=== PATIENT | male | born 1960 | race Caucasian/White ===

== ENCOUNTER → 2017-12-21 | Outpatient (CLI) | payer BC, MEDICARE | END | disposition home or self-care (01) | LOC: LABPAT 14:11 | PROVIDERS: ATTEND Orthopaedic Surgery | DX: Z01.812 Encounter for preprocedural laboratory examination (principal) | CPT/HCPCS: 87070 ==

== ENCOUNTER 2018-01-15 09:27 | Inpatient (IN) | payer BC, MEDICARE ==
[2018-01-03 17:59] VITALS: BMI 37.2
--- NOTE | 2018-01-14 14:34 | HP ---
HISTORY AND PHYSICAL DATE OF SURGERY: 01/15/2018 Jez Delgadillo is a 57-year-old patient seen with symptomatic left knee osteoarthritis. Treatment options discussed. He elected to proceed left total knee arthroplasty. Consent was obtained. Medical clearance was provided by Dr. Gauthier. PAST MEDICAL HISTORY: Hyperlipidemia, hypertension, gon-dvuwufc-urndijavv diabetes, hypothyroidism, asthma. PAST SURGICAL HISTORY: Right knee arthroscopy, herniorrhaphy, lumbar spine decompression. MEDICATIONS: Lisinopril, metformin, nebulizer inhaler, Synthroid. ALLERGIES: None reported. SOCIAL HISTORY: Patient smokes 2 packs of cigarettes daily. PHYSICAL EXAMINATION: Evaluation of the left knee is range of motion is negative to 110 degrees. Tenderness along the medial joint line. Crepitus medial patellofemoral compartment on range of motion. Pain with patellofemoral compression. Ligaments stable. Hip rotation without pain. His distal neurovascular exam is intact. Left knee radiographs revealed severe medial moderate patellofemoral compartment osteoarthritis. IMPRESSION: 1. Left knee osteoarthritis. 2. Hypertension. 3. Hyperlipidemia. 4. Jck-iovgscn-fcpxpysyz diabetes. 5. Hypothyroidism. PLAN: Left total knee arthroplasty. MMODL / IJN: [id number] /
[~2018-01-15 09:27] MED LIST: ACETAMINOPHEN TAB 500 MG TAB PO ONE; DEXAMETHASONE SOD PHOSPHATE 10 MG/ML 1 ML VIAL IV ONE; LACTATED RINGERS 1,000 ML IV SCH; LIDOCAINE 1% 20 ML VIAL (10MG/ML) FOR IV START INTRADERMA PRN; MELOXICAM 7.5 MG TAB PO ONE; MIDAZOLAM 2 MG/2 ML VIAL IV PRN; ONDANSETRON 4 MG/2 ML VIAL IVP ONE; SCOPOLAMINE 1.5MG/72HR PATCH TRANSDERM ONE; TRANEXAMIC ACID 1,000 MG in SODIUM CHLORIDE 0.9% 50 ML IVPB ONE; VANCOMYCIN 1,500 MG in SODIUM CHLORIDE 0.9% 250 ML IVPB ONE
[2018-01-15 10:23] LABS: Glucose,Whole Blood 113 mg/dL (75-99)
[2018-01-15] MEDS ORDERED: LIDOCAINE 1% 20 ML VIAL (10MG/ML) FOR IV START INTRADERMA ONE (10:30)
[2018-01-15 10:54] LABS: INR 1.3 (<1.2)
[2018-01-15] MEDS ORDERED: IPRATROPIUM-ALBUTEROL 3 ML NEB INHALATION STA (11:06)
[2018-01-15] MEDS ORDERED: ROPIVACAINE 246.25 MG, EPINEPHrine 0.5 MG, KETOROLAC 30 MG, cloNIDine HCL/PF 80 MCG, WA... MISCELLANE ONE ×5 (12:43)
[2018-01-15] MEDS ORDERED: TRANEXAMIC ACID 1,000 MG/10 ML VIAL ONE (12:52)
[2018-01-15] MEDS ORDERED: HYDROmorphone (PF) 1 MG/ML ONE (12:52)
[2018-01-15] MEDS ORDERED: fentaNYL (PF) 50 MCG/ML 2 ML AMP ONE (12:52)
[2018-01-15] MEDS ORDERED: SUCCINYLCHOLINE CHLORIDE 100 MG/5 ML SYR IV ONE (12:52)
[2018-01-15] MEDS ORDERED: SODIUM CHLORIDE 0.9% 100 ML BAG ONE (12:52)
[2018-01-15] MEDS ORDERED: ROCURONIUM BROMIDE 10 MG/ML 10 ML VIAL IV ONE (12:52)
[2018-01-15] MEDS ORDERED: PROPOFOL 10 MG/ML 20 ML VIAL IV ONE (12:52)
[2018-01-15] MEDS ORDERED: ceFAZolin 3,000 MG in SODIUM CHLORIDE 0.9% IRRIGATIO 3,000 ML IRRIGATION ONE (12:52)
[2018-01-15] MEDS ORDERED: MIDAZOLAM 2 MG/2 ML VIAL ONE (12:52)
[2018-01-15] MEDS ORDERED: KETOROLAC 30 MG/ML 1 ML VIAL ONE (12:52)
[2018-01-15] MEDS ORDERED: LACTATED RINGERS 1,000 ML IV ONE (13:57)
--- NOTE | 2018-01-15 15:04 | P.OP ---
Date of Procedure: 01/15/18 Preoperative Diagnosis: Left knee osteoarthritis Postoperative Diagnosis: Left knee osteoarthritis Procedure(s) Performed: Left total knee arthroplasty Implants: 1. Microport evolution size 6 left CD/CR cemented femur 2. Microport evolution size 6 left MP cemented tibial baseplate 3. Microport evolution size 6 left MP 12 mm polyethylene tibial insert 4. Microport advance 35 mm all polyethylene cemented patella Anesthesia: GETA, regional (Adductor canal catheter), local Surgeon: Milind Patton Engineering Mathematician #1: Alcides Arguelles Estimated Blood Loss (ml): 50 Pathology: other (Bone) Condition: stable Disposition: PACU Indications for Procedure: 57-year-old patient seen with symptomatic left knee osteoarthritis. After having treatment options discussed, he elected to proceed with total knee arthroplasty. Operative Findings: See description of procedure Description of Procedure: Patient was taken to the operative suite after having an adductor canal catheter placed by the department of anesthesia for postoperative pain control. Patient underwent a general anesthetic by the department of anesthesia. Patient was given preoperative IV intake antibiotics and TXA. A well-padded tourniquet was placed about the left lower extremity. The lower extremity was then prepped and draped in the normal sterile orthopedic fashion. The extremity was elevated, a tourniquet was insufflated to 300. A standard anterior incision was made sharply through skin. Dissection was taken down through the subcutaneous soft tissues down to the extensor mechanism. A medial arthrotomy was performed, patella was everted and knee was flexed. There was advanced osteoarthritis noted. I introduced my distal intramedullary femoral drill. I then introduced the distal femoral cutting jig. Torrey GARNER secured the cutting jig with 2 pins. I held retractors in position while Torrey GARNER performed the distal femoral resection through the guide area we now removed her distal femoral cutting guide. We now placed our 4-in-1 femoral cutting block and positioned and it was secured with 2 pins by Torrey GARNER while I held the block in position. The distal femoral finishing was now completed. A proximal tibial cutting guide was positioned. I held the guide in the appropriate position with both hands well Torrey GARNER inserted stabilizing pins into the guide. Proximal tibial cut was made. We now placed a trial femoral component into position, along with an appropriate size tibial tray and insert. We now took the knee through range of motion and had full extension good flexion and good overall soft tissue balance noted. The patella was everted and stabilized with 2 towel clips held by Torrey GARNER while I performed a flush with patellar quad tendon utilizing a fresh sawblade. We templated the patella, appropriate drill holes were made. An appropriate trial patella was positioned, knee was taken through full range of motion with the patella tracking very nicely. The trial patella was removed. Drill holes were made through the femoral component. All trial components were removed after marking off the appropriate rotation of the tibia. Retractors were now positioned along the proximal tibia. An appropriate keel punch was made with the appropriate size tibial guide by myself on Torrey GARNER assisted by holding retractors. At this point appropriate size implants were chosen and opened. The joint was irrigated copiously with pulse lavage mechanical irrigation. The posterior capsule was infiltrated with local analgesic. The wound was irrigated with pulse lavage mechanical irrigation. We mixed antibiotic methylmethacrylate. We placed the knee into flexion. We placed multiple retractors assisted by Torrey GARNER to expose the proximal tibia. Once the methyl methacrylate was ready, the tibial component was cemented into place removing any excess methylmethacrylate form by both myself and Torrey GARNER. The femoral component was cemented into place removing the removing any excess methylmethacrylate performed by both myself and Torrey GARNER. We then inserted the appropriate size polyethylene tibial insert. We made sure that it was locked into position. We took the knee into full extension, and then back in a flexion making sure we had removed any excess methylmethacrylate. The patellar component was then cemented down and secured with clamp. Excess methylmethacrylate removed. We kept the knee in full extension, patellar clamp in position until methylmethacrylate had hardened. Once it had hardened the patellar clamp was removed. The knee was taken through full range of motion. The patella tracked nicely. There was good soft tissue balancing. The tourniquet was now released. Additional hemostasis was achieved via electrocautery. A second gram of TXA was given. The wound again was irrigated with pulse lavage mechanical irrigation. The superficial soft tissues were infiltrated local analgesic. The extensor mechanism was repaired with Vicryl. We checked the repair with range of motion and it was stable. The subcutaneous soft tissues were repaired with Vicryl in layers. The skin was approximated with pernio/Dermabond. Sterile dressings were applied followed by loose web roll and Gregorio bandage. The patient was transferred to a bed, and taken to recovery in stable and satisfactory condition. Torrey GARNER assisted with this complex procedure.
[2018-01-15] MEDS ORDERED: HYDROmorphone 1 MG/ML 1 ML SYRINGE IVP PRN ×2 (15:05)
[2018-01-15] MEDS ORDERED: NALOXONE 0.4 MG/ML 1 ML VIAL IV PRN (15:05)
[2018-01-15] MEDS ORDERED: HYDROcodone/APAP 5-325MG 1 EACH TAB PO PRN (15:05)
[2018-01-15] MEDS ORDERED: ONDANSETRON 4 MG/2 ML VIAL IVP PRN (15:05)
[2018-01-15] MEDS ORDERED: ROPIVACAINE 1,100 MG, SODIUM CHLORIDE 0.9% 330 ML MISCELLANE PRN ×2 (15:22)
--- NOTE | 2018-01-15 15:25 | P.ONQ ---
Anesthesiology Proc Note - PNB - Peripheral Nerve Block Performed Left Adductor Canal Procedure Start Time: 11:27 Procedure Stop Time: 11:46 Indication: Acute Post-Operative Pain, Requested by physician (Dr Patton) Sedation Type: Sedate with meaningful contact maintained Preparation: Sterile Dressing Position: Supine Catheter: Indwelling Needle Types: Other (see comment) (Jalen) Needle Size: 50mm (2") Needle Gauge: 21 Technique: Ultrasound Injectate: 0.5% Ropivacaine (see comment for volume) (22cc) Blood Aspirated: No Pain Paresthesia on Injection Noted: No Resistance on Injection: Normal Events: Uneventful and Well Tolerated
[2018-01-15] MEDS: HYDROmorphone 0.5 MG/0.5 ML SYRINGE IVP PRN ×2 (15:33→15:53)
[2018-01-15 15:43] LABS: Glucose,Whole Blood 138 mg/dL (75-99)
[2018-01-15] MEDS: LACTATED RINGERS 1,000 ML IV SCH (16:14)
[2018-01-15 17:14] LABS: Glucose,Whole Blood 143 mg/dL (75-99)
[2018-01-15] MEDS: IPRATROPIUM-ALBUTEROL 3 ML NEB INHALATION SCH (20:19)
[2018-01-15 20:20] LABS: Glucose,Whole Blood 265 mg/dL (75-99)
[2018-01-15] MEDS: traMADol 50 MG TAB PO SCH ×2 (22:06→22:16)
[2018-01-15] MEDS: INSULIN ASPART 100 UNIT/ML 1 ML 10 ML VIAL SQ SCH (22:15)
[2018-01-15] MEDS: SENNOSIDES-DOCUSATE SODIUM 1 EACH TAB PO SCH (22:16)
[2018-01-15] MEDS: PRAVASTATIN SODIUM 20 MG TAB PO SCH (22:16)
[2018-01-15] MEDS: LISINOPRIL 5 MG TAB PO SCH (22:17)
[2018-01-16] MEDS: IPRATROPIUM-ALBUTEROL 3 ML NEB INHALATION SCH ×5 (01:43→20:03)
[2018-01-16] MEDS: LACTATED RINGERS 1,000 ML IV SCH ×3 (02:39→21:53)
[2018-01-16] MEDS: HYDROcodone/APAP 5-325MG 1 EACH TAB PO PRN ×2 (03:25→10:44)
[2018-01-16] MEDS: LEVOTHYROXINE 88 MCG TAB PO SCH (05:40)
[2018-01-16 07:18] LABS: Glucose,Whole Blood 90 mg/dL (75-99)
[2018-01-16] MEDS: INSULIN ASPART 100 UNIT/ML 1 ML 10 ML VIAL SQ SCH ×4 (08:20→21:51)
[2018-01-16] MEDS: LISINOPRIL 5 MG TAB PO SCH ×2 (08:30→21:50)
[2018-01-16] MEDS: MULTIVITAMINS, THERA 1 EACH TAB PO SCH (08:30)
[2018-01-16] MEDS: MELOXICAM 7.5 MG TAB PO SCH (08:30)
[2018-01-16] MEDS: ASPIRIN 81 MG PO SCH (08:31)
[2018-01-16] MEDS: metFORMIN 500 MG TAB PO SCH (08:31)
[2018-01-16] MEDS: traMADol 50 MG TAB PO SCH ×4 (08:31→21:52)
[2018-01-16] MEDS: ENOXAPARIN 30 MG/0.3 ML SYRINGE SQ SCH ×2 (08:31→21:50)
[2018-01-16 08:43] LABS: Basophils % (A) 0 %; Eosinophils # (A) 0.1 k/uL (0-0.7); Eosinophils % (A) 1 %; HCT 44.7 % (39.0-53.0); HGB 14.2 gm/dL (13.0-17.5); Lymphocytes # (A) 1.8 k/uL (1.0-4.8); Lymphocytes % (A) 16 %; MCH 31.8 pg (25.0-35.0); MCHC 31.7 g/dL (31.0-37.0); MCV 100.1 fL (80.0-100.0); Mean Platelet Volume 6.7; Monocytes # (A) 0.8 k/uL (0-1.0); Monocytes % (A) 7 %; Neutrophils # (A) 8.6 k/uL (1.3-7.7); Neutrophils % (A) 75 %; Platelet Count 205 k/uL (150-450); RBC 4.47 m/uL (4.30-5.90); RDW 13.6 % (11.5-15.5); WBC 11.5 k/uL (3.8-10.6)
--- NOTE | 2018-01-16 08:56 | P.PN ---
Progress Note - Text The patient is status post left adductor canal catheter placement. The catheter was placed for postoperative pain control, status post total left arthroplasty. Ropivacaine 0.2% is infusing at 8 mLs per hour. The patient has no complaints of left lower extremity numbness or weakness. Patient's VAS score is 3 -10. Assessment: Patient's adductor canal catheter is in place and working appropriately. Plan: continue infusion and adjust it as needed.
--- NOTE | 2018-01-16 10:24 | XR ---
EXAMINATION TYPE: XR knee limited LT DATE OF EXAM: 01/15/2018 COMPARISON: NONE TECHNIQUE: Two views submitted HISTORY: Post op FINDINGS: There is a prosthetic knee in near anatomic alignment. There is soft tissue edema and emphysema. IMPRESSION: 1. Postoperative change. Appears in near-anatomic alignment
[2018-01-16] MEDS ORDERED: HYDROcodone/APAP 7.5-325MG 1 EACH TAB PO PRN (11:28)
--- NOTE | 2018-01-16 11:30 | P.PN ---
Subjective Progress Note Date: 01/16/18 Principal diagnosis: Status post left total knee arthroplasty Patient seen today resting in his hospital bed, he appears comfortable. Slight increase in pain compared to yesterday. He denies any headaches, lightheadedness, chest pain or shortness of breath. Objective - Vital Signs Vital signs: Vital Signs Temp 98.0 F 01/16/18 07:05 Pulse 80 01/16/18 08:33 Resp 18 01/16/18 07:05 BP 113/70 01/16/18 07:05 Pulse Ox 90 L 01/16/18 07:05 Intake & Output 01/15/18 01/16/18 01/16/18 18:59 06:59 18:59 Intake Total 3541 1540 Output Total 50 Balance 3491 1540 Intake: IV 2251 Intake, IV Titration 300 1000 Amount Lactated Ringers 1,000 ml 300 1000 @ 100 mls/hr IV .Q10H [facility] Rx#:[id number] Oral 990 540 Output: Estimated Blood Loss 50 Other: Voiding Method Urinal Urinal # Voids 1 - Exam Left lower extremity: Incision is clean, dry, and intact. The prineo tape is in good condition. There is minimal soft tissue swelling and ecchymosis surrounding the medial and lateral aspects of the incision. Calf is soft, no tenderness with palpation. Plantar flexion, dorsiflexion, EHL, FHL are intact. Sensory exam to light touch throughout the extremity is intact, dorsal pedis pulses 2+. - Labs CBC & Chem 7: 01/16/18 08:07 Labs: Abnormal Lab Results - Last 24 Hours (Table) 01/15/18 01/15/18 01/15/18 Range/Units 15:40 17:13 20:16 WBC (3.8-10.6) k/uL MCV (80.0-100.0) fL Neutrophils # (1.3-7.7) k/uL POC Glucose (mg/dL) 138 H 143 H 265 H (75-99) mg/dL 01/16/18 Range/Units 08:07 WBC 11.5 H (3.8-10.6) k/uL MCV 100.1 H (80.0-100.0) fL Neutrophils # 8.6 H (1.3-7.7) k/uL POC Glucose (mg/dL) (75-99) mg/dL Assessment and Plan Plan: Assessment: Postoperative day #1 status post left total knee arthroplasty Plan: Pain control, will increase oral Leburn dose GI and DVT prophylaxis, continue current regimen Encourage incentive spirometer Daily dressing changes/ice and elevate Continue work with physical therapy and use of the CPM machine Medical recommendations Discharge planning: Patient will likely be discharged home tomorrow Time with Patient: Less than 30
[2018-01-16 12:45] LABS: Glucose,Whole Blood 110 mg/dL (75-99)
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
[2018-01-16] MEDS: HYDROcodone/APAP 7.5-325MG 1 EACH TAB PO PRN ×2 (16:28→22:26)
[2018-01-16 17:13] LABS: Glucose,Whole Blood 132 mg/dL (75-99)
[2018-01-16 17:56] LABS: Hemoglobin A1C 6.8 % (4.0-6.0)
[2018-01-16 20:08] LABS: Glucose,Whole Blood 152 mg/dL (75-99)
[2018-01-16] MEDS: SENNOSIDES-DOCUSATE SODIUM 1 EACH TAB PO SCH (21:52)
[2018-01-16] MEDS: PRAVASTATIN SODIUM 20 MG TAB PO SCH (21:53)
[2018-01-16] MEDS: hydrOXYzine PAMOATE 25 MG CAP PO PRN (22:27)
[2018-01-16] MEDS: HYDROmorphone 1 MG/ML 1 ML SYRINGE IVP PRN (23:48)
[2018-01-17] MEDS: IPRATROPIUM-ALBUTEROL 3 ML NEB INHALATION SCH ×4 (00:13→20:59)
[2018-01-17] MEDS: HYDROcodone/APAP 7.5-325MG 1 EACH TAB PO PRN ×3 (05:43→19:05)
[2018-01-17] MEDS: hydrOXYzine PAMOATE 25 MG CAP PO PRN ×3 (05:45→19:04)
[2018-01-17] MEDS: LEVOTHYROXINE 88 MCG TAB PO SCH (05:46)
--- NOTE | 2018-01-17 05:46 | P.PN ---
Progress Note - Text Progress Note Date: 01/17/18 The patient is status post left total knee replacement. He has On-Q catheter for pain control however his pain has been moderate to severe overnight. The patient is to continue receiving IV Dilaudid for his breakthrough pain. The On- Q catheter will be taken out as per protocol.
[2018-01-17] MEDS: HYDROmorphone 1 MG/ML 1 ML SYRINGE IVP PRN ×4 (06:04→20:15)
[2018-01-17 07:32] LABS: Glucose,Whole Blood 136 mg/dL (75-99)
[2018-01-17] MEDS: INSULIN ASPART 100 UNIT/ML 1 ML 10 ML VIAL SQ SCH ×4 (08:20→21:10)
[2018-01-17] MEDS: metFORMIN 500 MG TAB PO SCH (09:01)
[2018-01-17] MEDS: ENOXAPARIN 30 MG/0.3 ML SYRINGE SQ SCH ×2 (09:01→20:15)
[2018-01-17] MEDS: ASPIRIN 81 MG PO SCH (09:01)
[2018-01-17] MEDS: MELOXICAM 7.5 MG TAB PO SCH (09:01)
[2018-01-17] MEDS: MULTIVITAMINS, THERA 1 EACH TAB PO SCH (09:01)
[2018-01-17] MEDS: traMADol 50 MG TAB PO SCH ×3 (09:02→19:05)
[2018-01-17] MEDS: LISINOPRIL 5 MG TAB PO SCH ×2 (09:08→20:16)
--- NOTE | 2018-01-17 10:39 | P.PN ---
Subjective Progress Note Date: 01/17/18 Principal diagnosis: Status post left total knee arthroplasty Patient seen today resting in his hospital bed. Patient still complaining of pain, he states the pain medication does make him sleepy. He continues to steadily pain medication. He denies any headaches, lightheadedness, chest pain or shortness of breath. Objective - Vital Signs Vital signs: Vital Signs Temp 98 F 01/17/18 07:00 Pulse 113 H 01/17/18 07:00 Resp 17 01/17/18 07:00 BP 159/100 01/17/18 07:00 Pulse Ox 90 L 01/17/18 07:00 Intake & Output 01/16/18 01/17/18 01/17/18 18:59 06:59 18:59 Intake Total 1400 740 Output Total 825 Balance 1400 -85 Weight 106.141 kg Intake: IV 900 Lactated Ringers 1,000 ml 900 @ 100 mls/hr IV .Q10H [facility] Rx#:[id number] Intake, IV Titration 200 Amount Lactated Ringers 1,000 ml 200 @ 100 mls/hr IV .Q10H [facility] Rx#:[id number] Oral 500 540 Output: Urine 825 Other: Voiding Method Urinal Urinal # Voids 3 1 - Exam Left lower extremity: Incision is clean, dry, and intact. The prineo tape is in good condition. There is minimal soft tissue swelling and ecchymosis surrounding the medial and lateral aspects of the incision. Calf is soft, no tenderness with palpation. Plantar flexion, dorsiflexion, EHL, FHL are intact. Sensory exam to light touch throughout the extremity is intact, dorsal pedis pulses 2+. - Labs CBC & Chem 7: 01/16/18 08:07 Labs: Abnormal Lab Results - Last 24 Hours (Table) 01/16/18 01/16/18 01/16/18 Range/Units 08:07 12:43 17:12 POC Glucose (mg/dL) 110 H 132 H (75-99) mg/dL Hemoglobin A1c 6.8 H (4.0-6.0) % 01/16/18 01/17/18 Range/Units 20:06 07:30 POC Glucose (mg/dL) 152 H 136 H (75-99) mg/dL Hemoglobin A1c (4.0-6.0) % Assessment and Plan Plan: Assessment: Postoperative day #2 status post left total knee arthroplasty Plan: Pain control, continue current regimen. Avoid IV medication GI and DVT prophylaxis, continue current regimen Encourage incentive spirometer Daily dressing changes/ice and elevate Continue work with physical therapy and use of the CPM machine Medical recommendations Discharge planning: Hopeful discharged home tomorrow Time with Patient: Less than 30
[2018-01-17] MEDS: LACTATED RINGERS 1,000 ML IV SCH ×2 (10:52→17:15)
[2018-01-17 12:06] LABS: Glucose,Whole Blood 127 mg/dL (75-99)
--- NOTE | 2018-01-17 13:24 | P.PN ---
Subjective Progress Note Date: 01/17/18 Principal diagnosis: Left total knee arthroplasty, postop day 2, inactive COPD Jez is a 57-year-old male patient and I'm seeing him for a postoperative pulmonary care. The patient is known to have COPD and obstructive sleep apnea. The patient has also severe degenerative arthritis involving multiple joints and he came into the hospital for a left total knee arthroplasty. Surgery was done with an estimated blood loss of 50 mL and the patient has Q pump in place and I'm involved in the postoperative care. He is doing extremely well. Awake alert. No respiratory difficulties. No cough sputum production. No chest pain. Pain is under good control for now. Hemodynamically stable. He is also on tramadol and [place] for pain control. Outpatient medication of been ordered resume. He is on Lovenox for DVT prophylaxis. On 01/17/2018 patient seen in follow-up on surgical floor. No respiratory complaints, shortness of breath, his sinusitis effort is 1500 on today's exam. Lung sounds are clear. Patient is having left knee postsurgical discomfort, swelling, but no calf tenderness, distal pulses are intact. COPD seems to be stable, continue with the nebulized treatments. Objective - Vital Signs Vital signs: Vital Signs Temp 98 F 01/17/18 07:00 Pulse 94 01/17/18 10:47 Resp 17 01/17/18 07:00 BP 159/100 01/17/18 07:00 Pulse Ox 90 L 01/17/18 07:00 Intake & Output 01/16/18 01/17/18 01/17/18 18:59 06:59 18:59 Intake Total 1400 740 Output Total 825 300 Balance 1400 -85 -300 Weight 106.141 kg Intake: IV 900 Lactated Ringers 1,000 ml 900 @ 100 mls/hr IV .Q10H [facility] Rx#:[id number] Intake, IV Titration 200 Amount Lactated Ringers 1,000 ml 200 @ 100 mls/hr IV .Q10H [facility] Rx#:[id number] Oral 500 540 Output: Urine 825 300 Other: Voiding Method Urinal Urinal # Voids 3 1 - Exam General Appearance no diaphoresis, no respiratory distress, speech not interrupted by breaths, no dyspnea, no pallor, not cachectic, well nourished, appears well, obesity HEENT no pursed lip breathing, no jugular venous distention, no mucous membrane cyanosis, no perioral cyanosis, mallampati classification: class 1, Mallampati Classification: Class 4 Chest no barrel chest, no retractions, no sternocleidomastoid muscle contractions, no supraclavicular retractions, no intercostal retractions, no prolonged expiratory wheezing, no decreased air movement, no rhonchi, no hyperinflation, decreased air movement Heart no right ventricular heave, no distant heart sounds, no s3 gallop GI bowel sounds: hyperactive (borborygmi), bowel sounds: diminished or absent Extremities no cyanosis, no clubbing, no edema, the patient has a Q pump in the left lower extremity and the knee joint is slightly swollen yet he has adequate pulses symmetric in lower extremities bilaterally. Neurologic no decreased mental status, no somnolence, no confusion Skin General Appearance normal, (normal) normal except as not - Labs CBC & Chem 7: 01/16/18 08:07 Labs: Abnormal Lab Results - Last 24 Hours (Table) 01/16/18 01/16/18 01/16/18 Range/Units 08:07 17:12 20:06 POC Glucose (mg/dL) 132 H 152 H (75-99) mg/dL Hemoglobin A1c 6.8 H (4.0-6.0) % 01/17/18 01/17/18 Range/Units 07:30 12:03 POC Glucose (mg/dL) 136 H 127 H (75-99) mg/dL Hemoglobin A1c (4.0-6.0) % Assessment and Plan Plan: 1 left total knee arthroplasty. The patient is postop day #1. Recovering mastic from the surgery. Pain is under good control and the patient is postop day #1 and hemodynamically stable. 2 COPD currently inactive in stable 3 obstructive sleep apnea maintained on a BiPAP at a pressure of 13/9 cm of water 4 coronary artery disease currently inactive in stable 5 CHF currently inactive in stable 6 hypertension 7 diabetes mellitus 8 hyperlipidemia 9 severe osteoarthritis 10 hypothyroidism 11 obesity with a BMI of 37.2 12 smoker Plan Continue current medical treatment, continue incentive spirometry use, nebulized bronchodilators, pain control, his COPD is stable, didn't DVT and GI prophylaxis, I performed a history & physical examination of the patient and discussed their management with my nurse practitioner, Vickie Woods. I reviewed the nurse practitioner's note and agree with the documented findings and plan of care. Lung sounds are clear. The findings and the impression was discussed with the patient. I attest to the documentation by the nurse practitioner. Time with Patient: Less than 30
[2018-01-17] MEDS ORDERED: HYDROmorphone 2 MG TAB PO PRN ×2 (14:44)
[2018-01-17] MEDS ORDERED: HYDROmorphone 4 MG TABLET PO PRN (14:45)
[2018-01-17 17:02] LABS: Glucose,Whole Blood 106 mg/dL (75-99)
--- NOTE | 2018-01-17 18:07 | US ---
EXAMINATION TYPE: US venous doppler duplex LE LT DATE OF EXAM: 01/17/2018 4:03 PM COMPARISON: NONE CLINICAL HISTORY: Swelling. Left knee replacement 01/15/18, pain and edema left leg SIDE PERFORMED: left TECHNIQUE: The lower extremity deep venous system is examined utilizing real time linear array sonog suzy with graded compression, doppler sonography and color-flow sonography. VESSELS IMAGED: External Iliac Vein (EIV) Common Femoral Vein Deep Femoral Vein Greater Saphenous Vein * Femoral Vein Popliteal Vein Small Saphenous Vein * Proximal Calf Veins (* superficial vessels) Left Leg: Technical limitations due to patient's body habitus and large amount of edema. No eviden ce of DVT as visualized. Unable to visualize lower femoral vein. Large complex anechoic area left pop liteal fossa = 6.5 x 2.9 x 3.3cm, possible Anderson's cyst vs. other IMPRESSION: No evidence of deep venous thrombosis. Complex popliteal cyst is noted.
[2018-01-17] MEDS: PRAVASTATIN SODIUM 20 MG TAB PO SCH (20:16)
[2018-01-17] MEDS: SENNOSIDES-DOCUSATE SODIUM 1 EACH TAB PO SCH (20:17)
[2018-01-17 20:58] LABS: Glucose,Whole Blood 138 mg/dL (75-99)
[2018-01-18] MEDS: traMADol 50 MG TAB PO SCH ×3 (00:58→12:44)
[2018-01-18 01:34] VITALS: RESP 18
[2018-01-18] MEDS: IPRATROPIUM-ALBUTEROL 3 ML NEB INHALATION SCH ×3 (02:41→13:13)
[2018-01-18] MEDS: LACTATED RINGERS 1,000 ML IV SCH (03:09)
[2018-01-18] MEDS: HYDROmorphone 1 MG/ML 1 ML SYRINGE IVP PRN ×3 (05:17→12:42)
[2018-01-18] MEDS: LEVOTHYROXINE 88 MCG TAB PO SCH (05:18)
[2018-01-18 07:12] LABS: Glucose,Whole Blood 126 mg/dL (75-99)
[2018-01-18] MEDS: INSULIN ASPART 100 UNIT/ML 1 ML 10 ML VIAL SQ SCH (07:18)
[2018-01-18] MEDS: HYDROcodone/APAP 7.5-325MG 1 EACH TAB PO PRN ×2 (07:28→14:37)
[2018-01-18] MEDS: hydrOXYzine PAMOATE 25 MG CAP PO PRN ×2 (07:29→14:38)
[2018-01-18 07:33] VITALS: BP 148/73; TEMP 98.2
[2018-01-18 07:39] LABS: Basophils % (A) 0 %; Eosinophils # (A) 0.1 k/uL (0-0.7); Eosinophils % (A) 1 %; HCT 38.4 % (39.0-53.0); HGB 12.6 gm/dL (13.0-17.5); Lymphocytes # (A) 1.1 k/uL (1.0-4.8); Lymphocytes % (A) 10 %; MCH 31.7 pg (25.0-35.0); MCHC 32.8 g/dL (31.0-37.0); MCV 96.7 fL (80.0-100.0); Monocytes # (A) 0.8 k/uL (0-1.0); Monocytes % (A) 7 %; Neutrophils # (A) 8.9 k/uL (1.3-7.7); Neutrophils % (A) 81 %; Platelet Count 171 k/uL (150-450); RBC 3.97 m/uL (4.30-5.90); RDW 13.1 % (11.5-15.5)
[2018-01-18] MEDS: ASPIRIN 81 MG PO SCH (08:57)
[2018-01-18] MEDS: LISINOPRIL 5 MG TAB PO SCH (08:57)
[2018-01-18] MEDS: metFORMIN 500 MG TAB PO SCH (08:57)
[2018-01-18] MEDS: ENOXAPARIN 30 MG/0.3 ML SYRINGE SQ SCH (08:58)
[2018-01-18] MEDS: MULTIVITAMINS, THERA 1 EACH TAB PO SCH (08:58)
[2018-01-18] MEDS: MELOXICAM 7.5 MG TAB PO SCH (08:59)
--- NOTE | 2018-01-18 10:06 | P.PN ---
Subjective Progress Note Date: 01/18/18 Principal diagnosis: Status post left total knee arthroplasty Patient seen today resting in his hospital bed. Doppler ultrasound was ordered of the left lower extremity due to swelling yesterday. This did not report any acute DVTs present. He denies any headaches, lightheadedness, chest pain or shortness of breath. Objective - Vital Signs Vital signs: Vital Signs Temp 98.2 F 01/18/18 07:00 Pulse 100 01/18/18 08:18 Resp 18 01/18/18 07:00 BP 148/73 01/18/18 07:00 Pulse Ox 91 L 01/18/18 08:05 Intake & Output 01/17/18 01/18/18 01/18/18 18:59 06:59 18:59 Output Total 300 450 Balance -300 -450 Output: Urine 300 450 Other: # Voids 1 - Exam Left lower extremity: Incision is clean, dry, and intact. The prineo tape is in good condition. There is minimal soft tissue swelling and ecchymosis surrounding the medial and lateral aspects of the incision. Calf is soft, no tenderness with palpation. Plantar flexion, dorsiflexion, EHL, FHL are intact. Sensory exam to light touch throughout the extremity is intact, dorsal pedis pulses 2+. - Labs CBC & Chem 7: 01/18/18 07:10 Labs: Abnormal Lab Results - Last 24 Hours (Table) 01/17/18 01/17/18 01/17/18 Range/Units 12:03 17:00 20:56 WBC (3.8-10.6) k/uL RBC (4.30-5.90) m/uL Hgb (13.0-17.5) gm/dL Hct (39.0-53.0) % Neutrophils # (1.3-7.7) k/uL POC Glucose (mg/dL) 127 H 106 H 138 H (75-99) mg/dL 01/18/18 01/18/18 Range/Units 07:10 07:11 WBC 11.0 H (3.8-10.6) k/uL RBC 3.97 L (4.30-5.90) m/uL Hgb 12.6 L (13.0-17.5) gm/dL Hct 38.4 L (39.0-53.0) % Neutrophils # 8.9 H (1.3-7.7) k/uL POC Glucose (mg/dL) 126 H (75-99) mg/dL Assessment and Plan Plan: Assessment: Postoperative day #3 status post left total knee arthroplasty Plan: Pain control, continue current regimen. Avoid IV medication GI and DVT prophylaxis, continue current regimen Encourage incentive spirometer Daily dressing changes/ice and elevate Continue work with physical therapy and use of the CPM machine Medical recommendations Discharge planning: plan for discharge today Time with Patient: Less than 30
--- NOTE | 2018-01-18 10:09 | P.DS ---
Providers Date of admission: 01/15/18 09:49 Expected date of discharge: 01/18/18 Attending physician: Milind Patton Consults: 01/15/18 15:05 Consult Physician Routine Consulting Provider: Jose Gauthier Consult Reason/Comments: Medical management Do you want consulting provider notified?: Yes Primary care physician: Stated None Hospital Course: Date of admission: 01/15/2018 Date of discharge: 01/18/2018 Admission diagnosis: Status post left total knee arthroplasty Discharge diagnosis: Same Attending physician: Dr. Patton Surgical procedures: Left total knee arthroplasty Brief history: Patient is a 57-year-old male with a history of progressive primary left knee osteoarthritis. At this point patient has failed conservative treatment measures and has opted to proceed with a elective left total knee arthroplasty. Hospital course: Details of patient's surgery can be found in operative report. Patient tolerated the procedure well and was subsequently transported to orthopedic floor. Patient's orthopeidc and medical care was provided daily. Patient had daily laboratory tests performed for evaluation of overall blood counts. Patient had daily physical therapy to include strengthening range of motion as well as education with walker ambulation. Patient had daily CPM usage as part of their physical therapy program. Patient was treated with Lovenox for their postoperative DVT prophylaxis during their inpatient stay. Patient was noted to have a relatively uneventful postoperative course. Patient reported satisfactory pain control with oral pain medications by postoperative day 0. Patient showed satisfactory progress with physical therapy. Patient moved steadily through the program and had no difficulty meeting the goals by postoperative day 3. Given patient's otherwise satisfactory course and having met physical therapy goals, plan is to discharge patient home on postoperative day 3. Discharge condition/disposition: Patient will be discharged home in stable condition. Discharge medications: Instructions are given on resumption of patient's normal daily medications per primary care recommendation, in addition patient will be prescribed [place] 7.5 mg/325 mg, tramadol 50 mg, Colace 100 mg, aspirin 325 mg. Discharge instructions: 1. Wound care and infection precautions, keep incision dry and covered while showering, no lotions, creams, moisturizers. No soaking, tubs, pools, hottubs. Do not scrub over the incision. 2. Weight-bear as tolerated with walker / cane until follow-up. 3. Ice and elevate when necessary. Do not exceed 20 minutes per hour with ice pack. 4. Utilize compression sleeve until seen at first follow up appointment. 5. Visiting nursing care. 6. Home physical therapy including home CPM. 7. Pain meds and anticoagulants per prescription. 8. Pain medication has potential to cause constipation. Increase oral fluid and fiber intake. Contact primary care provider if you have not had a bowel movement within 48 hours after discharge 9. No anti-inflammatory medication until discussed at first post operative visit, this including Motrin, Aleve, Mobic, Diclofenac. 10. Follow up in office at 2 weeks postop with Torrey Arguelles PA-C 11. Follow up with your primary care doctor 7-10 days after discharge. 12. Contact [facility] with any questions, . Procedures: Left total knee arthroplasty Patient Condition at Discharge: Good Plan - Discharge Summary Discharge Rx Participant: Yes New Discharge Prescriptions: New Aspirin 325 mg PO BID #60 tab Docusate [Colace] 100 mg PO DAILY #30 capsule HYDROcodone/APAP 7.5-325MG [[place] 7.5] 1 - 2 each PO Q6HR PRN #56 tab PRN Reason: Pain traMADol HCl [Ultram] 50 mg PO Q6H PRN #28 tab PRN Reason: Pain No Action metFORMIN HCL [Glucophage] 500 mg PO QAM Pravastatin Sodium [Pravachol] 20 mg PO HS Oxymetazoline 0.05% Nasl [place] [Afrin 0.05% Nasal [place]] 2 spray EA NOSTRIL HS Levothyroxine Sodium [Synthroid] 88 mcg PO DAILY Ipratropium/Albuterol Sulfate [Combivent Respimat Inhaler] 1 - 2 puff INHALATION RT-QID PRN PRN Reason: Dyspnea Lisinopril [Zestril] 5 mg PO BID Ipratropium-Albuterol Nebulize [Duoneb 0.5 mg-3 mg/3 ml Soln] 3 ml INHALATION RT-Q6H Discharge Medication List Ipratropium-Albuterol Nebulize [Duoneb 0.5 mg-3 mg/3 ml Soln] 3 ml INHALATION RT -Q6H 01/03/18 [History] Ipratropium/Albuterol Sulfate [Combivent Respimat Inhaler] 1 - 2 puff INHALATION RT-QID PRN 01/03/18 [History] Levothyroxine Sodium [Synthroid] 88 mcg PO DAILY 01/03/18 [History] Lisinopril [Zestril] 5 mg PO BID 01/03/18 [History] Oxymetazoline 0.05% Nasl [place] [Afrin 0.05% Nasal [place]] 2 spray EA NOSTRIL HS 01/03/18 [History] Pravastatin Sodium [Pravachol] 20 mg PO HS 01/03/18 [History] metFORMIN HCL [Glucophage] 500 mg PO QAM 01/03/18 [History] Aspirin 325 mg PO BID #60 tab 01/18/18 [Rx] Docusate [Colace] 100 mg PO DAILY #30 capsule 01/18/18 [Rx] HYDROcodone/APAP 7.5-325MG [[place] 7.5] 1 - 2 each PO Q6HR PRN #56 tab 01/18/18 [ Rx] traMADol HCl [Ultram] 50 mg PO Q6H PRN #28 tab 01/18/18 [Rx] Follow up Appointment(s)/Referral(s): [facility], [NON-STAFF] - Alcides Arguelles PAC [PHYSICIAN MECHANISM ASSEMBLER] - 01/31/18 2:10 pm Activity/Diet/Wound Care/Special Instructions: Orthopedic Discharge Instructions: 1. Wound care and infection precautions, keep incision dry and covered while showering, no lotions, creams, moisturizers. No soaking, pools, hot tubs. Do not scrub over incision. 2. Weight-bear as tolerated with walker / cane until follow-up. 3. Ice and elevate when necessary. Do not exceed 20 minutes per hour with ice pack. 4. Utilize compression sleeve until seen at first follow up appointment. 5. Pain meds and anticoagulants per prescription. 6. Pain medication has potential to cause constipation. Increase oral fluid and fiber intake. Contact primary care provider if you have not had a bowel movement within 48 hours after discharge. 7. No anti-inflammatory medication until discussed at first post operative visit, this including Motrin, Aleve, Mobic, Diclofenac. 8. Follow up in office at 2 weeks postop with Torrey Arguelles PA-C 9. Follow up with your primary care doctor 7-10 days after discharge. 10. Contact [facility] with any questions, 11. Please call [facility] once home to arrange CPM delivery [phone]. Discharge Disposition: HOME WITH HOME HEALTH SERVICES
[2018-01-18 12:08] LABS: Glucose,Whole Blood 109 mg/dL (75-99)
[2018-01-18 13:24] VITALS: PULSE 93
--- NOTE | 2018-01-18 14:36 | P.PN ---
Subjective Progress Note Date: 01/18/18 Principal diagnosis: Left total knee arthroplasty, postop day 2, inactive COPD Jez is a 57-year-old male patient and I'm seeing him for a postoperative pulmonary care. The patient is known to have COPD and obstructive sleep apnea. The patient has also severe degenerative arthritis involving multiple joints and he came into the hospital for a left total knee arthroplasty. Surgery was done with an estimated blood loss of 50 mL and the patient has Q pump in place and I'm involved in the postoperative care. He is doing extremely well. Awake alert. No respiratory difficulties. No cough sputum production. No chest pain. Pain is under good control for now. Hemodynamically stable. He is also on tramadol and [place] for pain control. Outpatient medication of been ordered resume. He is on Lovenox for DVT prophylaxis. On 01/17/2018 patient seen in follow-up on surgical floor. No respiratory complaints, shortness of breath, his incentive spirometry effort is 1500 on today's exam. Lung sounds are clear. Patient is having left knee postsurgical discomfort, swelling, but no calf tenderness, distal pulses are intact. COPD seems to be stable, continue with the nebulized treatments. He seen in follow-up on the surgical floor. He is awake alert, denies any acute distress, still has some left knee postsurgical pain, swelling, or some of the left leg was negative for evidence of DVT. Compliant with incentive spirometry, room air pulse ox is 91%, respirations are even and nonlabored, lung sounds are clear, no wheezing, no rhonchi or rales. Vital signs are stable , patient has been ambulating, tolerating activity well. He is anticipated to be discharged home today, and he is cleared from pulmonary perspective. Objective - Vital Signs Vital signs: Vital Signs Temp 98.2 F 01/18/18 07:00 Pulse 93 01/18/18 13:23 Resp 18 01/18/18 07:00 BP 148/73 01/18/18 07:00 Pulse Ox 91 L 01/18/18 08:05 Intake & Output 01/17/18 01/18/18 01/18/18 18:59 06:59 18:59 Intake Total 240 Output Total 300 450 Balance -300 -450 240 Intake: Oral 240 Output: Urine 300 450 Other: # Voids 1 - Exam General Appearance no diaphoresis, no respiratory distress, speech not interrupted by breaths, no dyspnea, no pallor, not cachectic, well nourished, appears well, obesity HEENT no pursed lip breathing, no jugular venous distention, no mucous membrane cyanosis, no perioral cyanosis, mallampati classification: class 1, Mallampati Classification: Class 4 Chest no barrel chest, no retractions, no sternocleidomastoid muscle contractions, no supraclavicular retractions, no intercostal retractions, no prolonged expiratory wheezing, no decreased air movement, no rhonchi, no hyperinflation, decreased air movement Heart no right ventricular heave, no distant heart sounds, no s3 gallop GI bowel sounds: hyperactive (borborygmi), bowel sounds: diminished or absent Extremities no cyanosis, no clubbing, no edema, the patient has a Q pump in the left lower extremity and the knee joint is slightly swollen yet he has adequate pulses symmetric in lower extremities bilaterally. Neurologic no decreased mental status, no somnolence, no confusion Skin General Appearance normal, (normal) normal except as not - Labs CBC & Chem 7: 01/18/18 07:10 Labs: Abnormal Lab Results - Last 24 Hours (Table) 01/17/18 01/17/18 01/18/18 Range/Units 17:00 20:56 07:10 WBC 11.0 H (3.8-10.6) k/uL RBC 3.97 L (4.30-5.90) m/uL Hgb 12.6 L (13.0-17.5) gm/dL Hct 38.4 L (39.0-53.0) % Neutrophils # 8.9 H (1.3-7.7) k/uL POC Glucose (mg/dL) 106 H 138 H (75-99) mg/dL 01/18/18 01/18/18 Range/Units 07:11 12:03 WBC (3.8-10.6) k/uL RBC (4.30-5.90) m/uL Hgb (13.0-17.5) gm/dL Hct (39.0-53.0) % Neutrophils # (1.3-7.7) k/uL POC Glucose (mg/dL) 126 H 109 H (75-99) mg/dL Assessment and Plan Plan: 1 left total knee arthroplasty. The patient is postop day #2 Recovering from the surgery. Pain is under good control and the patient is postop day #2 and hemodynamically stable. 2 COPD currently inactive in stable 3 obstructive sleep apnea maintained on a BiPAP at a pressure of 13/9 cm of water 4 coronary artery disease currently inactive in stable 5 CHF currently inactive in stable 6 hypertension 7 diabetes mellitus 8 hyperlipidemia 9 severe osteoarthritis 10 hypothyroidism 11 obesity with a BMI of 37.2 12 smoker Plan No acute issues overnight, continue encouraging deep breathing and coughing, ambulation, incentive spirometry use. Patient is on room air, mild signs are stable. Lung sounds are clear. Patient is being discharged home today, and he is cleared for discharge from pulmonary perspective. I performed a history & physical examination of the patient and discussed their management with my nurse practitioner, Vickie Woods. I reviewed the nurse practitioner's note and agree with the documented findings and plan of care. Lung sounds are clear. The findings and the impression was discussed with the patient. I attest to the documentation by the nurse practitioner. Time with Patient: Less than 30
== END 2018-01-18 14:58 | disposition home health service (06) | DRG 470 ==
LOC: 2ORMAIN 09:49 → 3SUR 15:11
PROVIDERS: ADMIT Orthopaedic Surgery; ATTEND Orthopaedic Surgery
PROC: 0SRD0J9 Replacement of Left Knee Joint with Synthetic Substitute, Cemented, Open Approach (ICD-10-PCS; principal; 2018-01-15 13:00)
DX: M17.12 Unilateral primary osteoarthritis, left knee (principal); E03.9 Hypothyroidism, unspecified; E11.9 Type 2 diabetes mellitus without complications; E66.9 Obesity, unspecified; E78.5 Hyperlipidemia, unspecified; F17.210 Nicotine dependence, cigarettes, uncomplicated; G47.33 Obstructive sleep apnea (adult) (pediatric); I11.0 Hypertensive heart disease with heart failure; I25.10 Atherosclerotic heart disease of native coronary artery without angina pectoris; I50.9 Heart failure, unspecified; J44.9 Chronic obstructive pulmonary disease, unspecified; Z68.37 Body mass index [BMI] 37.0-37.9, adult; Z79.82 Long term (current) use of aspirin; Z79.84 Long term (current) use of oral hypoglycemic drugs; Z86.718 Personal history of other venous thrombosis and embolism; M54.9 Dorsalgia, unspecified; G89.29 Other chronic pain; Z79.899 Other long term (current) drug therapy; M15.9 Polyosteoarthritis, unspecified; Z98.1 Arthrodesis status
CPT/HCPCS: 83036; 85025; 85610; 88300; 94640; 94760

== ENCOUNTER 2018-01-20 14:18 | Inpatient (IN) | payer BC, MEDICARE ==
[2018-01-20] MEDS: SODIUM CHLORIDE 0.9% 1,000 ML IV SCH ×2 (15:49→20:52)
[2018-01-20 16:09] LABS: Basophils % (A) 0 %; Eosinophils # (A) 0.2 k/uL (0-0.7); Eosinophils % (A) 2 %; HCT 37.3 % (39.0-53.0); HGB 12.1 gm/dL (13.0-17.5); Lymphocytes # (A) 0.5 k/uL (1.0-4.8); Lymphocytes % (A) 6 %; MCH 31.4 pg (25.0-35.0); MCHC 32.5 g/dL (31.0-37.0); MCV 96.7 fL (80.0-100.0); Mean Platelet Volume 6.6; Monocytes # (A) 0.9 k/uL (0-1.0); Monocytes % (A) 10 %; Neutrophils % (A) 79 %; Platelet Count 232 k/uL (150-450); RBC 3.86 m/uL (4.30-5.90); RDW 13.2 % (11.5-15.5); WBC 8.9 k/uL (3.8-10.6)
[2018-01-20 16:21] LABS: ALT 44 U/L (21-72); AST 44 U/L (17-59); Albumin 3.2 g/dL (3.5-5.0); Alkaline Phosphatase 43 U/L (38-126); Anion Gap 10 mmol/L; Blood Urea Nitrogen 17 mg/dL (9-20); Carbon Dioxide 26 mmol/L (22-30); Chloride 96 mmol/L (98-107); Glucose 188 mg/dL (74-99); Potassium 4.4 mmol/L (3.5-5.1); Sodium 132 mmol/L (137-145); Total Bilirubin 0.6 mg/dL (0.2-1.3); Total Protein 5.9 g/dL (6.3-8.2)
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
--- NOTE | 2018-01-20 16:44 | US ---
EXAMINATION TYPE: US venous doppler duplex LE LT DATE OF EXAM: 01/20/2018 4:32 PM COMPARISON: US 2018 CLINICAL HISTORY: Painful, swollen leg, recent total knee. Left leg pain and swelling following knee replacement 5 days ago, previous ultrasound 3 days ago: negative SIDE PERFORMED: Left TECHNIQUE: The lower extremity deep venous system is examined utilizing real time linear array sonog suzy with graded compression, doppler sonography and color-flow sonography. VESSELS IMAGED: External Iliac Vein (EIV) Common Femoral Vein Deep Femoral Vein Greater Saphenous Vein * Femoral Vein Popliteal Vein Small Saphenous Vein * Proximal Calf Veins (* superficial vessels) Difficult and limited study due to patient body habitus and large amount of edema. Unable to visual ize distal femoral vein for compression. Left Leg: Visualized portions appear negative for DVT, popliteal fossa: 8.1 x 2.9 x 3.3cm complex cy stic area medial to vessels, probable durham's cyst IMPRESSION: No evidence of deep venous thrombosis in the left leg. Popliteal cyst is noted.
--- NOTE | 2018-01-20 16:59 | XR ---
EXAMINATION TYPE: XR knee 4V LT DATE OF EXAM: 01/20/2018 COMPARISON: 01/15/2018 HISTORY: Knee pain TECHNIQUE: 4 views FINDINGS: There is left knee prosthesis. Components appear in anatomic position. There is mild anteri or soft tissue swelling. IMPRESSION: Knee prosthesis. No fracture seen. No change in position compared to last exam.
[2018-01-20 17:40] LABS: Appearance,Urine Clear (Clear); Bilirubin,Urine Negative (Negative); Blood,Urine Negative (Negative); Color,Urine Yellow; Glucose,Urine (UA) 1+ (Negative); Ketones,Urine Negative (Negative); Leukocyte Esterase,Urine Negative (Negative); Nitrite,Urine Negative (Negative); Protein,Urine Trace (Negative); Specific Gravity,Urine 1.019 (1.001-1.035)
[2018-01-20] MEDS ORDERED: NALOXONE 0.4 MG/ML 1 ML VIAL IV PRN (17:54)
[2018-01-20] MEDS ORDERED: ACETAMINOPHEN TAB 325 MG TAB PO PRN (17:54)
[2018-01-20] MEDS ORDERED: IPRATROPIUM-ALBUTEROL 3 ML NEB INHALATION PRN (17:56)
[2018-01-20] MEDS: IPRATROPIUM-ALBUTEROL 3 ML NEB INHALATION SCH (19:49)
[2018-01-20] MEDS ORDERED: IPRATROPIUM-ALBUTEROL 3 ML NEB INHALATION SCH (20:00)
[2018-01-20 20:16] LABS: Glucose,Whole Blood 108 mg/dL (75-99)
[2018-01-20] MEDS: OXYMETAZOLINE 0.05% NASL SPRAY 1 SPRAY BOTTLE EA NOSTRIL SCH (20:52)
[2018-01-20] MEDS: PRAVASTATIN SODIUM 20 MG TAB PO SCH (20:52)
[2018-01-20] MEDS: LISINOPRIL 5 MG TAB PO SCH (20:52)
[2018-01-20] MEDS: ceFAZolin 1,000 MG in DEXTROSE/WATER 1 50ML.BAG IVPB SCH (20:52)
[2018-01-20] MEDS: ASPIRIN 325 MG TAB PO SCH (20:52)
[2018-01-20] MEDS: MORPHINE SULFATE 4 MG/ML SYRINGE IV PRN (22:26)
[2018-01-20 23:15] VITALS: BMI 37.8
[2018-01-21] MEDS: IPRATROPIUM-ALBUTEROL 3 ML NEB INHALATION PRN (00:45)
[2018-01-21] MEDS: ceFAZolin 1,000 MG in DEXTROSE/WATER 1 50ML.BAG IVPB SCH ×3 (03:37→21:26)
[2018-01-21] MEDS: LEVOTHYROXINE 88 MCG TAB PO SCH (05:32)
[2018-01-21] MEDS: MORPHINE SULFATE 4 MG/ML SYRINGE IV PRN ×2 (05:32→16:04)
[2018-01-21 06:54] LABS: Glucose,Whole Blood 139 mg/dL (75-99)
[2018-01-21] MEDS: IPRATROPIUM-ALBUTEROL 3 ML NEB INHALATION SCH ×4 (07:10→19:27)
[2018-01-21] MEDS: ASPIRIN 325 MG TAB PO SCH ×2 (09:00→21:26)
[2018-01-21] MEDS: LISINOPRIL 5 MG TAB PO SCH ×2 (09:00→21:25)
[2018-01-21] MEDS: metFORMIN 500 MG TAB PO SCH (09:00)
[2018-01-21] MEDS: DOCUSATE 100 MG CAP PO SCH (09:00)
[2018-01-21] MEDS: SODIUM CHLORIDE 0.9% 1,000 ML IV SCH ×2 (09:06→12:33)
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
[2018-01-21 11:38] LABS: Glucose,Whole Blood 134 mg/dL (75-99)
[2018-01-21 16:43] LABS: Glucose,Whole Blood 121 mg/dL (75-99)
[2018-01-21 20:09] LABS: Glucose,Whole Blood 167 mg/dL (75-99)
[2018-01-21] MEDS ORDERED: HYDROmorphone 1 MG/ML 1 ML SYRINGE IVP PRN (20:16)
[2018-01-21] MEDS: HYDROcodone/APAP 10-325MG 1 EACH TAB PO PRN (21:25)
[2018-01-21] MEDS: INSULIN ASPART 100 UNIT/ML 1 ML 10 ML VIAL SQ SCH (21:25)
[2018-01-21] MEDS: PRAVASTATIN SODIUM 20 MG TAB PO SCH (21:27)
[2018-01-21] MEDS: OXYMETAZOLINE 0.05% NASL SPRAY 1 SPRAY BOTTLE EA NOSTRIL SCH (21:49)
[2018-01-22] MEDS: IPRATROPIUM-ALBUTEROL 3 ML NEB INHALATION PRN (01:23)
[2018-01-22] MEDS: SODIUM CHLORIDE 0.9% 1,000 ML IV SCH ×3 (02:02→12:38)
[2018-01-22] MEDS: ceFAZolin 1,000 MG in DEXTROSE/WATER 1 50ML.BAG IVPB SCH ×2 (04:11→11:51)
[2018-01-22] MEDS: IPRATROPIUM-ALBUTEROL 3 ML NEB INHALATION SCH ×3 (05:57→15:28)
[2018-01-22 06:59] LABS: Glucose,Whole Blood 125 mg/dL (75-99)
[2018-01-22] MEDS: INSULIN ASPART 100 UNIT/ML 1 ML 10 ML VIAL SQ SCH ×2 (07:10→11:45)
[2018-01-22] MEDS: LEVOTHYROXINE 88 MCG TAB PO SCH (07:33)
[2018-01-22] MEDS: metFORMIN 500 MG TAB PO SCH (07:33)
[2018-01-22] MEDS: ASPIRIN 325 MG TAB PO SCH (07:37)
[2018-01-22] MEDS: LISINOPRIL 5 MG TAB PO SCH (07:38)
[2018-01-22] MEDS: DOCUSATE 100 MG CAP PO SCH (07:38)
[2018-01-22] MEDS: HYDROcodone/APAP 10-325MG 1 EACH TAB PO PRN ×2 (10:44→15:00)
[2018-01-22] MEDS ORDERED: ENOXAPARIN 40 MG/0.4 ML SYRINGE SQ SCH (11:15)
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
[2018-01-22 11:45] LABS: Glucose,Whole Blood 99 mg/dL (75-99)
--- NOTE | 2018-01-22 14:06 | P.PN ---
Subjective Progress Note Date: 01/22/18 Principal diagnosis: Recent history status post left total knee arthroplasty, recent increasing pain and swelling of left knee Patient evaluated today at bedside with Dr. Patton. Patient notes no worsening of his pain and swelling. He has been up ambulating with therapy. Denies any fevers or chills at this time. Objective - Vital Signs Vital signs: Vital Signs Temp 98.2 F 01/22/18 07:00 Pulse 80 01/22/18 12:10 Resp 16 01/22/18 07:00 BP 134/72 01/22/18 07:00 Pulse Ox 90 L 01/22/18 07:00 Intake & Output 01/21/18 01/22/18 01/22/18 18:59 06:59 18:59 Intake Total 990 Balance 990 Intake: Intake, IV Titration 560 Amount Sodium Chloride 0.9% 1, 560 000 ml @ 70 mls/hr IV . [id number] SADI Rx#:[id number] Oral 430 Other: # Voids 2 2 - Exam Left lower extremity: Incision is clean, dry, and intact. The prineo tape is in good condition. Obvious soft tissue swelling present around the knee, this does extend into the lower leg Calf is soft, no tenderness with palpation. Plantar flexion, dorsiflexion, EHL, FHL are intact. Sensory exam to light touch throughout the extremity is intact, dorsal pedis pulses 2+. - Labs CBC & Chem 7: 01/20/18 15:50 01/20/18 15:50 Labs: Abnormal Lab Results - Last 24 Hours (Table) 01/21/18 01/21/18 01/22/18 Range/Units 16:36 19:50 06:57 POC Glucose (mg/dL) 121 H 167 H 125 H (75-99) mg/dL Microbiology - Last 24 Hours (Table) 01/20/18 17:20 Urine Culture - Final Urine,Voided 01/20/18 15:50 Blood Culture - Preliminary Blood No Growth after 24 hours Assessment and Plan Plan: Assessment: Stable left total knee arthroplasty Left knee swelling No evidence of left periprosthetic joint fraction No evidence of DVT left lower extremity Plan: We had a long discussion with the patient today at bedside regarding the normal aspects of postoperative swelling following a total knee arthroplasty. Patient was advised that he needs to ice and elevate the leg often at home. He also needs to be ambulating multiple times a day Continue current pain medication that was prescribed an initial discharge GI and DVT prophylaxis, he will resume aspirin 325 mg twice a day after discharge Home therapy and nursing of discharge Other medical dosimetrist recommendations Discharge planning: Plan for follow-up in 1 week Time with Patient: Less than 30
--- NOTE | 2018-01-22 14:10 | P.DS ---
Providers Date of admission: 01/20/18 17:56 Expected date of discharge: 01/22/18 Attending physician: Jayro Banks Consults: 01/21/18 20:14 Consult Physician Routine Consulting Provider: Jose Gauthier Consult Reason/Comments: Medical Management Do you want consulting provider notified?: Yes Primary care physician: Shawna Trejo Hospital Course: Date of admission: 01/20/2018 Date of discharge: 01/22/2018 Admission diagnosis: Pain and swelling left knee, recent history of left total knee arthroplasty Discharge diagnosis: Same Attending physician: Dr. Patton Surgical procedures: None Brief history: Patient is a 57-year-old male with a history of a recent left total knee arthroplasty. Patient spent 3 days in the hospital, he was discharged home with home care nursing. After being at home, he noticed increasing pain and swelling involving the left knee. Home care recommended patient be evaluated in the emergency room. Once evaluated in the emergency room, he was admitted under orthopedic care for further workup of possible DVT/ infection. Further workup demonstrated no active infection or acute DVT. Hospital course: Patient's orthopeidc and medical care was provided daily. Patient had daily laboratory tests performed for evaluation of overall blood counts. Patient had daily physical therapy to include strengthening range of motion as well as education with walker ambulation. Patient was treated with Lovenox for their postoperative DVT prophylaxis during their inpatient stay. Patient was noted to have a relatively uneventful postoperative course. Discharge condition/disposition: Patient will be discharged home in stable condition. Discharge medications: No new medications Discharge instructions: 1. Wound care and infection precautions, keep incision dry and covered while showering, no lotions, creams, moisturizers. No soaking, tubs, pools, hottubs. Do not scrub over the incision. 2. Weight-bear as tolerated with walker / cane until follow-up. 3. Ice and elevate when necessary. Do not exceed 20 minutes per hour with ice pack. 4. Utilize compression sleeve until seen at first follow up appointment. 5. Visiting nursing care. 6. Home physical therapy including home CPM. 7. Pain meds and anticoagulants per prescription. 8. Pain medication has potential to cause constipation. Increase oral fluid and fiber intake. Contact primary care provider if you have not had a bowel movement within 48 hours after discharge 9. No anti-inflammatory medication until discussed at first post operative visit, this including Motrin, Aleve, Mobic, Diclofenac. 10. Follow up in office at 2 weeks postop with Torrey Arguelles PA-C 11. Follow up with your primary care doctor 7-10 days after discharge. 12. Contact [facility] with any questions, . Patient Condition at Discharge: Good Plan - Discharge Summary New Discharge Prescriptions: No Action metFORMIN HCL [Glucophage] 500 mg PO QAM Pravastatin Sodium [Pravachol] 20 mg PO HS Oxymetazoline 0.05% Nasl [place] [Afrin 0.05% Nasal [place]] 2 spray EA NOSTRIL HS Levothyroxine Sodium [Synthroid] 88 mcg PO DAILY Ipratropium/Albuterol Sulfate [Combivent Respimat Inhaler] 1 - 2 puff INHALATION RT-QID PRN PRN Reason: Dyspnea Lisinopril [Zestril] 5 mg PO BID Ipratropium-Albuterol Nebulize [Duoneb 0.5 mg-3 mg/3 ml Soln] 3 ml INHALATION RT-Q6H Aspirin 325 mg PO BID #60 tab Docusate [Colace] 100 mg PO DAILY #30 capsule traMADol HCl [Ultram] 50 mg PO Q6H PRN #28 tab PRN Reason: Pain HYDROcodone/APAP 7.5-325MG [[place] 7.5] 1 - 2 tab PO Q6HR PRN PRN Reason: Pain Discharge Medication List Ipratropium-Albuterol Nebulize [Duoneb 0.5 mg-3 mg/3 ml Soln] 3 ml INHALATION RT -Q6H 01/03/18 [History] Ipratropium/Albuterol Sulfate [Combivent Respimat Inhaler] 1 - 2 puff INHALATION RT-QID PRN 01/03/18 [History] Levothyroxine Sodium [Synthroid] 88 mcg PO DAILY 01/03/18 [History] Lisinopril [Zestril] 5 mg PO BID 01/03/18 [History] Oxymetazoline 0.05% Nasl [place] [Afrin 0.05% Nasal [place]] 2 spray EA NOSTRIL HS 01/03/18 [History] Pravastatin Sodium [Pravachol] 20 mg PO HS 01/03/18 [History] metFORMIN HCL [Glucophage] 500 mg PO QAM 01/03/18 [History] Aspirin 325 mg PO BID #60 tab 01/18/18 [Rx] Docusate [Colace] 100 mg PO DAILY #30 capsule 01/18/18 [Rx] traMADol HCl [Ultram] 50 mg PO Q6H PRN #28 tab 01/18/18 [Rx] HYDROcodone/APAP 7.5-325MG [[place] 7.5] 1 - 2 tab PO Q6HR PRN 01/20/18 [History] Follow up Appointment(s)/Referral(s): [facility], [NON-STAFF] - Shawna Trejo MD [Primary Care Provider] - 1-2 days Alcides Arguelles PAC [PHYSICIAN MARINE ARCHITECT] - 1 Week Activity/Diet/Wound Care/Special Instructions: Orthopedic Discharge Instructions: 1. Wound care and infection precautions, keep incision dry and covered while showering, no lotions, creams, moisturizers. No soaking, pools, hot tubs. Do not scrub over incision. 2. Weight-bear as tolerated with walker / cane until follow-up. 3. Ice and elevate when necessary. Do not exceed 20 minutes per hour with ice pack. 4. Utilize compression sleeve until seen at first follow up appointment. 5. Pain meds and anticoagulants per prescription. 6. Pain medication has potential to cause constipation. Increase oral fluid and fiber intake. Contact primary care provider if you have not had a bowel movement within 48 hours after discharge. 7. No anti-inflammatory medication until discussed at first post operative visit, this including Motrin, Aleve, Mobic, Diclofenac. 8. Follow up in office at 2 weeks postop with Torrey Arguelles PA-C 9. Follow up with your primary care doctor 7-10 days after discharge. 10. Contact [facility] with any questions, . Discharge Disposition: HOME WITH HOME HEALTH SERVICES
[2018-01-22 14:27] VITALS: BP 124/79; RESP 18; TEMP 97.9
[2018-01-22 15:40] VITALS: PULSE 77
== END 2018-01-22 17:39 | disposition home health service (06) | DRG 556 ==
LOC: EC 14:18 → 3SUR 17:56
PROVIDERS: ADMIT Orthopaedic Surgery; ATTEND Orthopaedic Surgery
DX: M25.562 Pain in left knee (principal); M25.462 Effusion, left knee; I11.0 Hypertensive heart disease with heart failure; I50.9 Heart failure, unspecified; E03.9 Hypothyroidism, unspecified; M71.20 Synovial cyst of popliteal space [Baker], unspecified knee; J44.9 Chronic obstructive pulmonary disease, unspecified; I25.10 Atherosclerotic heart disease of native coronary artery without angina pectoris; E11.9 Type 2 diabetes mellitus without complications; E78.5 Hyperlipidemia, unspecified; G47.33 Obstructive sleep apnea (adult) (pediatric); M19.91 Primary osteoarthritis, unspecified site; G89.29 Other chronic pain; M54.9 Dorsalgia, unspecified; F17.210 Nicotine dependence, cigarettes, uncomplicated; Z71.6 Tobacco abuse counseling; E66.9 Obesity, unspecified; Z68.37 Body mass index [BMI] 37.0-37.9, adult; Z96.652 Presence of left artificial knee joint; Z79.84 Long term (current) use of oral hypoglycemic drugs; Z79.82 Long term (current) use of aspirin; Z79.890 Hormone replacement therapy; Z79.899 Other long term (current) drug therapy; Z95.5 Presence of coronary angioplasty implant and graft; Z98.1 Arthrodesis status; Z86.14 Personal history of Methicillin resistant Staphylococcus aureus infection; Z86.718 Personal history of other venous thrombosis and embolism
CPT/HCPCS: 36415; 80053; 81003; 85025; 87040; 87086; 94640; 99285

== ENCOUNTER 2018-03-08 06:21 | Day surgery (SDC) | payer BC, MEDICARE ==
[2018-03-07 12:18] VITALS: BMI 30.7
--- NOTE | 2018-03-07 14:56 | HP ---
HISTORY AND PHYSICAL DATE OF SURGERY: 03/08/2018 Jez Cifuentes is a 58-year-old patient seen with a left knee medial retinacular tear. He had history of left total knee arthroplasty approximately 6 weeks ago. About 2 weeks ago, he slipped and fell injuring the left knee. I recommended repair of the left knee medial retinacular tear. I discussed the procedure, risks, complications, benefits, recovery. Patient was agreeable, consent was obtained. PAST MEDICAL HISTORY: Gyp-bnjhrwi-qznndrddi diabetes, hyperlipidemia, hypertension, hypothyroidism, COPD. PAST SURGICAL HISTORY: Right knee arthroscopy, left total knee arthroplasty, herniorrhaphy. DAILY MEDICATIONS: 1. Lisinopril. 2. Metformin. 3. Synthroid. 4. Albuterol inhaler. ALLERGIES: None reported. SOCIAL HISTORY: Patient currently smokes 2 packs of cigarettes a day. Physical evaluation of the left knee, his incision is well healed. There is a palpable defect along the medial retinaculum. He is unable to actively extend the knee from a flexed position. Homans mows is negative, obvious quadriceps weakness. Distal neurovascular exam is intact. Radiographs of the left knee reveal a stable-appearing total knee arthroplasty. The patella; however, appears to be subluxed laterally. IMPRESSION: 1. Left knee medial retinacular tear. 2. Left total knee arthroplasty. 3. Hypertension. 4. Hyperlipidemia. 5. Aqm-twtzvaz-vqkildztw diabetes. 6. Hypothyroidism. 7. Tobacco use. PLAN: Left knee open medial retinacular repair. MMODL / IJN: [id number] /
[~2018-03-08 06:21] MED LIST changes: -ACETAMINOPHEN TAB 500 MG TAB PO ONE; -DEXAMETHASONE SOD PHOSPHATE 10 MG/ML 1 ML VIAL IV ONE; -LIDOCAINE 1% 20 ML VIAL (10MG/ML) FOR IV START INTRADERMA PRN; -MELOXICAM 7.5 MG TAB PO ONE; -MIDAZOLAM 2 MG/2 ML VIAL IV PRN; -SCOPOLAMINE 1.5MG/72HR PATCH TRANSDERM ONE; -TRANEXAMIC ACID 1,000 MG in SODIUM CHLORIDE 0.9% 50 ML IVPB ONE; +ceFAZolin IN SWFI 2 GM/20 ML SYRINGE IVP ONE; +fentaNYL (PF) 50 MCG/ML 2 ML AMP IV PRN
[2018-03-08 07:19] LABS: Glucose,Whole Blood 104 mg/dL (75-99)
[2018-03-08] MEDS ORDERED: LIDOCAINE 1% 20 ML VIAL (10MG/ML) FOR IV START INTRADERMA ONE (07:33)
[2018-03-08 07:38] LABS: Basophils # (A) 0.1 k/uL (0-0.2); Basophils % (A) 1 %; Eosinophils # (A) 0.2 k/uL (0-0.7); Eosinophils % (A) 2 %; HGB 13.8 gm/dL (13.0-17.5); Lymphocytes # (A) 1.6 k/uL (1.0-4.8); Lymphocytes % (A) 22 %; MCH 30.8 pg (25.0-35.0); MCHC 32.1 g/dL (31.0-37.0); Mean Platelet Volume 6.4; Monocytes # (A) 0.6 k/uL (0-1.0); Monocytes % (A) 8 %; Neutrophils # (A) 4.5 k/uL (1.3-7.7); Neutrophils % (A) 64 %; Platelet Count 290 k/uL (150-450); RBC 4.48 m/uL (4.30-5.90); RDW 13.6 % (11.5-15.5); WBC 7.1 k/uL (3.8-10.6)
[2018-03-08] MEDS ORDERED: diphenhydrAMINE 50 MG/ML 1 ML VIAL IVP ONE (07:49)
[2018-03-08] MEDS ORDERED: ALBUTEROL NEBULIZED 2.5 MG/3 ML INHALATION STA (08:25)
[2018-03-08] MEDS ORDERED: SUCCINYLCHOLINE CHLORIDE 100 MG/5 ML SYR IV ONE (09:20)
[2018-03-08] MEDS ORDERED: LIDOCAINE 1% INJ 10MG/ML (20 ML MDV) ONE (09:20)
[2018-03-08] MEDS ORDERED: NEOSTIGMINE 1 MG/ML 10 ML VIAL ONE (09:20)
[2018-03-08] MEDS ORDERED: ROCURONIUM BROMIDE 10 MG/ML 10 ML VIAL IV ONE (09:20)
[2018-03-08] MEDS ORDERED: GLYCOPYRROLATE 0.2 MG/ML 2 ML VIAL ONE (09:20)
[2018-03-08] MEDS ORDERED: PROPOFOL 10 MG/ML 20 ML VIAL IV ONE (09:20)
[2018-03-08] MEDS ORDERED: ceFAZolin 3,000 MG in SODIUM CHLORIDE 0.9% IRRIGATIO 3,000 ML IRRIGATION ONE (09:48)
[2018-03-08] MEDS ORDERED: ROPIVACAINE 5 MG/ML 30 ML VIAL MISCELLANE ONE ×2 (10:13)
[2018-03-08] MEDS ORDERED: LACTATED RINGERS 1,000 ML IV ONE (10:14)
--- NOTE | 2018-03-08 10:24 | P.OP ---
Date of Procedure: 03/08/18 Preoperative Diagnosis: Left knee medial retinacular tear Postoperative Diagnosis: Same Procedure(s) Performed: Left knee medial retinacular repair Anesthesia: RICHIE, local Surgeon: Milind Patton Roof Bolter #1: Alcides Arguelles Estimated Blood Loss (ml): 15 Pathology: none sent Condition: stable Disposition: PACU Indications for Procedure: 50-year-old patient seen with a left knee medial retinacular tear after recently having undergone total knee arthroplasty. I recommended repair. He was agreeable, consent regarding procedure was obtained. Operative Findings: see description of procedure Description of Procedure: The patient was taken to the operative suite. The patient underwent a general anesthetic by the department of anesthesia. A well-padded tourniquet was placed proximal left lower extremity. The left lower extremity was now prepped and draped in the normal sterile orthopedic fashion. The patient received preoperative IV antibiotics. The extremity was elevated and tourniquet insufflated to 300. I now made an incision over the previous cicatrix sharply through skin. Upon entering the subcu serial we had a fair amount of fluid it we evacuated. There was complete tearing of the medial retinaculum extending awl into the quadriceps area. All residual suture was removed. I irrigated the wound out copiously with pulse lavage mechanical irrigation. I removed any abnormal tissue. I now repaired the medial retinaculum with #2 Ethibond simple interrupted fashion utilizing multiple sutures while Torrey GARNER assisted by using various retractors for exposure. I observed an excellent repair of the retinaculum. I checked this with range of motion and it was stable. Torrey GARNER and myself began preparing the subcu soft tissues in layers with 2-0 Vicryl. The skin was approximated with skin anna. The subcu soft tissues were infiltrated with local. Sterile dressings were applied. The tourniquet was released with immediate capillary refill noted. The patient was placed into a knee immobilizer. The patient was awakened, transferred to a bed and taken to recovery in stable condition.
[2018-03-08 11:07] VITALS: TEMP 97.1
[2018-03-08] MEDS: HYDROmorphone 1 MG/ML 1 ML SYRINGE IVP PRN ×2 (11:11→11:20)
[2018-03-08] MEDS ORDERED: HYDROcodone/APAP 10-325MG 1 EACH TAB PO ONE (12:10)
[2018-03-08 12:23] VITALS: RESP 16
[2018-03-08 12:52] VITALS: BP 145/76; PULSE 84
== END 2018-03-08 13:21 | disposition home or self-care (01) ==
LOC: OR 06:21 → 4SSUR 10:22 → OR 13:21
PROVIDERS: ATTEND Orthopaedic Surgery
DX: S76.111A Strain of right quadriceps muscle, fascia and tendon, initial encounter (principal); Z96.651 Presence of right artificial knee joint; E78.5 Hyperlipidemia, unspecified; I10 Essential (primary) hypertension; E03.9 Hypothyroidism, unspecified; J44.9 Chronic obstructive pulmonary disease, unspecified; E11.9 Type 2 diabetes mellitus without complications; Z79.84 Long term (current) use of oral hypoglycemic drugs; Z79.899 Other long term (current) drug therapy; F17.210 Nicotine dependence, cigarettes, uncomplicated; Z95.5 Presence of coronary angioplasty implant and graft; I25.10 Atherosclerotic heart disease of native coronary artery without angina pectoris
CPT/HCPCS: 94640; 85025; 27664; J3370; J1200; J2710; J2405; J0690; J2001; J1170; J2795; J0330; J2704

== ENCOUNTER 2019-04-01 05:38 | Inpatient (IN) | payer BC, MEDICARE ==
--- NOTE | 2019-03-31 19:46 | HP ---
HISTORY AND PHYSICAL REASON FOR ADMISSION: Surgery 04/01/2019. HISTORY OF PRESENT ILLNESS: Jez Cifuentes is a 59-year-old patient seen with symptomatic right knee osteoarthritis. After having treatment options discussed with him, he elected to proceed with right total knee arthroplasty. Consent was obtained, clearance was provided by Dr. Gauthier. PAST MEDICAL HISTORY: Hyperlipidemia, hypertension, mmn-[id number] diabetes, hypothyroidism and emphysema. PAST SURGICAL HISTORY: Left total knee arthroplasty, right knee arthroscopy, herniorrhaphy, lumbar spine surgery. MEDICATIONS: Lisinopril, metformin, Synthroid. ALLERGIES: None. SOCIAL HISTORY: Smokes 2 packs cigarettes daily. PHYSICAL EXAMINATION: Evaluation of the right knee is range of motion is -2 to 115. Tenderness medial joint line. Crepitus medial and patellofemoral compartments. Pain with patellofemoral compression. Ligaments stable. Hip rotation without pain. Distal neurovascular exam is intact. RADIOGRAPHS: Radiographs of the right knee revealed severe medial compartment osteoarthritis, moderate patellofemoral compartment osteoarthritis. IMPRESSION: 1. Right knee osteoarthritis. 2. Hyperlipidemia. 3. Hypothyroidism. 4. Noninsulin dependent diabetes. 5. Tobacco use. PLAN: Right total knee arthroplasty. Surgery scheduled for 04/01/2019. MMODL / IJN: [id number] /
[~2019-04-01 05:38] MED LIST changes: +ACETAMINOPHEN TAB 500 MG TAB PO ONE; -LACTATED RINGERS 1,000 ML IV SCH; +MELOXICAM 7.5 MG TAB PO ONE; -ONDANSETRON 4 MG/2 ML VIAL IVP ONE; +TRANEXAMIC ACID 1,000 MG in SODIUM CHLORIDE 0.9% 100 ML IVPB ONE; -VANCOMYCIN 1,500 MG in SODIUM CHLORIDE 0.9% 250 ML IVPB ONE; -ceFAZolin IN SWFI 2 GM/20 ML SYRINGE IVP ONE; -fentaNYL (PF) 50 MCG/ML 2 ML AMP IV PRN
[2019-04-01] MEDS ORDERED: ONDANSETRON 4 MG/2 ML VIAL IVP ONE (05:39)
[2019-04-01] MEDS ORDERED: SCOPOLAMINE 1.5MG/72HR PATCH TRANSDERM ONE (05:39)
[2019-04-01] MEDS ORDERED: MIDAZOLAM 2 MG/2 ML VIAL IV PRN (05:39)
[2019-04-01] MEDS ORDERED: HYDROmorphone 0.5 MG/0.5 ML SYRINGE IVP PRN ×3 (05:39→09:22)
[2019-04-01] MEDS ORDERED: DEXAMETHASONE SOD PHOSPHATE 10 MG/ML 1 ML VIAL IV ONE (05:39)
[2019-04-01] MEDS ORDERED: ROPIVACAINE 246.25 MG, EPINEPHrine 0.5 MG, KETOROLAC 30 MG, cloNIDine HCL/PF 80 MCG, WA... MISCELLANE ONE ×5 (06:00)
[2019-04-01] MEDS ORDERED: LIDOCAINE 1% 20 ML VIAL (10MG/ML) FOR IV START INTRADERMA ONE (06:21)
[2019-04-01] MEDS: LACTATED RINGERS 1,000 ML IV SCH ×2 (06:22→22:04)
[2019-04-01 06:37] LABS: Glucose,Whole Blood 142 mg/dL (75-99)
[2019-04-01] MEDS ORDERED: fentaNYL (PF) 50 MCG/ML 2 ML AMP IV ONE (07:09)
[2019-04-01] MEDS ORDERED: LIDOCAINE 1% INJ 10MG/ML (20 ML MDV) ONE (07:22)
[2019-04-01] MEDS ORDERED: fentaNYL (PF) 50 MCG/ML 2 ML AMP ONE (07:22)
[2019-04-01] MEDS ORDERED: PROPOFOL 10 MG/ML 20 ML VIAL IV ONE (07:22)
[2019-04-01] MEDS ORDERED: ePHEDrine SULFATE/0.9% NACL/PF 50 MG/5 ML SYRINGE IV ONE (07:22)
[2019-04-01] MEDS ORDERED: SUCCINYLCHOLINE CHLORIDE 100 MG/5 ML SYR IV ONE (07:22)
[2019-04-01] MEDS ORDERED: MIDAZOLAM 2 MG/2 ML VIAL ONE (07:22)
[2019-04-01] MEDS ORDERED: ceFAZolin 3,000 MG in SODIUM CHLORIDE 0.9% IRRIGATIO 3,000 ML IRRIGATION ONE (08:04)
[2019-04-01] MEDS ORDERED: LACTATED RINGERS 1,000 ML IV ONE (09:04)
[2019-04-01] MEDS ORDERED: NALOXONE 0.4 MG/ML 1 ML VIAL IV PRN (09:22)
[2019-04-01] MEDS ORDERED: HYDROcodone/APAP 5-325MG 1 EACH TAB PO PRN (09:22)
[2019-04-01] MEDS ORDERED: ONDANSETRON 4 MG/2 ML VIAL IVP PRN (09:22)
--- NOTE | 2019-04-01 09:22 | P.OP ---
Date of Procedure: 04/01/19 Preoperative Diagnosis: Right knee osteoarthritis Postoperative Diagnosis: Right knee osteoarthritis Procedure(s) Performed: Right total knee arthroplasty Implants: 1. Microport evolution size 6 right MP cemented femur 2. Microport evolution size 6 right cemented tibial baseplate 3. Microport evolution size 6 right MP CS 14 mm polyethylene tibial insert 4. Microport advance 35mm all polyethylene cemented patella Anesthesia: GETA, regional (Adductor canal catheter), local Surgeon: Milind Patton Contract Implementation Analyst #1: Alcides Arguelles Estimated Blood Loss (ml): 30 Pathology: other (Bone) Condition: stable Disposition: PACU Indications for Procedure: 59-year-old patient seen with symptomatic right knee osteoarthritis. After treatment options were discussed, he elected to proceed with total knee arthroplasty. Operative Findings: See description of procedure Description of Procedure: Patient was taken to the operative suite after having an adductor canal catheter placed by the department of anesthesia for postoperative pain management. Patient underwent a general anesthetic by the department of anesthesia. Patient was given preoperative IV intake antibiotics and TXA. A well-padded tourniquet was placed about the right lower extremity. The lower extremity was then prepped and draped in the normal sterile orthopedic fashion. The extremity was elevated, a tourniquet was insufflated to 300. A standard anterior incision was made sharply through skin. Dissection was taken down through the subcutaneous soft tissues down to the extensor mechanism. A medial arthrotomy was performed, patella was everted and knee was flexed. There was advanced osteoarthritis noted. I introduced my distal intramedullary femoral drill. I then introduced the distal femoral cutting jig. Torrey GARNER secured the cutting jig with 2 pins. I held retractors in position while Torrey GARNER performed the distal femoral resection through the guide area we now removed her distal femoral cutting guide. We now placed our 4-in-1 femoral cutting block and positioned and it was secured with 2 pins by Torrey GARNER while I held the block in position. The distal femoral finishing was now completed. A proximal tibial cutting guide was positioned. I held the guide in the appropriate position with both hands well Torrey GARNER inserted stabilizing pins into the guide. Proximal tibial cut was made. We now placed a trial femoral component into position, along with an appropriate size tibial tray and insert. We now took the knee through range of motion and had full extension good flexion and good overall soft tissue balance noted. The patella was everted and stabilized with 2 towel clips held by Torrey GARNER while I performed a flush with patellar quad tendon utilizing a fresh sawblade. We templated the patella, appropriate drill holes were made. An appropriate trial patella was positioned, knee was taken through full range of motion with the patella tracking very nicely. The trial patella was removed. Drill holes were made through the femoral component. All trial components were removed after marking off the appropriate rotation of the tibia. Retractors were now positioned along the proximal tibia. An appropriate keel punch was made with the appropriate size tibial guide by myself on Torrey GARNER assisted by holding retractors. At this point appropriate size implants were chosen and opened. The joint was irrigated copiously with pulse lavage mechanical irrigation. The posterior capsule was infiltrated with local analgesic. The wound was irrigated with pulse lavage mechanical irrigation. We mixed antibiotic methylmethacrylate. We placed the knee into flexion. We placed multiple retractors assisted by Torrey GARNER to expose the proximal tibia. Once the methyl methacrylate was ready, the tibial component was cemented into place removing any excess methylmethacrylate form by both myself and Torrey GARNER. The femoral component was cemented into place removing the removing any excess methylmethacrylate performed by both myself and Torrey GARNER. We then inserted the appropriate size polyethylene tibial insert. We made sure that it was locked into position. We took the knee into full extension, and then back in a flexion making sure we had removed any excess methylmethacrylate. The patellar component was then cemented down and secured with clamp. Excess methylmethacrylate removed. We kept the knee in full extension, patellar clamp in position until methylmethacrylate had hardened. Once it had hardened the patellar clamp was removed. The knee was taken through full range of motion. The patella tracked nicely. There was good soft tissue balancing. The tourniquet was now released. Additional hemostasis was achieved via electrocautery. A second gram of TXA was given. The wound again was irrigated with pulse lavage mechanical irrigation. The superficial soft tissues were infiltrated local analgesic. The extensor mechanism was repaired with Vicryl. We checked the repair with range of motion and it was stable. The subcutaneous soft tissues were repaired with Vicryl in layers. The skin was approximated with pernio/Dermabond. Sterile dressings were applied followed by loose web roll and Gregorio bandage. The patient was transferred to a bed, and taken to recovery in stable and satisfactory condition. Torrey GARNER assisted with this complex procedure.
--- NOTE | 2019-04-01 09:27 | P.ANPRN ---
Procedure Note - Anesthesia - Nerve Block Performed Right Adductor Canal Infusion Time Out Performed: Yes ([id number]) Date of Procedure: 04/01/19 Procedure Start Time: 07:05 Procedure Stop Time: 07:14 Location of Patient: PreOp Indication: Acute Post-Operative Pain Specifically requested for management of pain by DrAmerico: Milind Patton Sedation Type: Sedate with meaningful contact maintained Preparation: Sterile Prep, Sterile Dressing Position: Supine Catheter Depth at Skin (cm): 6 Catheter: Indwelling Needle Types: Pajunk Needle Gauge: 21 Ultrasound used to visualize needle placement: Yes Ultrasound used to observe medication spread: Yes (visualize local spread) Injectate: 0.5% Ropivacaine (see comment for volume) Blood Aspirated: No Pain Paresthesia on Injection Noted: No Resistance on Injection: Normal Image Stored and Saved: Yes Events: Uneventful and Well Tolerated
[2019-04-01] MEDS ORDERED: ROPIVACAINE 0.2%-NS ON-Q PUMP 1,090 MG, EMPTY PAIN BALL 1 EACH MISCELLANE PRN (09:33)
[2019-04-01 09:53] LABS: Glucose,Whole Blood 184 mg/dL (75-99)
--- NOTE | 2019-04-01 10:03 | XR ---
EXAMINATION TYPE: XR knee limited RT DATE OF EXAM: 04/01/2019 COMPARISON: 01/20/2018 HISTORY: Postop knee replacement TECHNIQUE: 2 view right knee FINDINGS: Right knee is examined in AP and lateral views. Postsurgical changes are within soft tissue s. There is been placement of tibial and femoral components. No acute fractures or dislocations are e vident post knee replacement IMPRESSION: 1. No acute fractures post knee replacement
[2019-04-01 10:30] VITALS: BMI 40.6
[2019-04-01] MEDS: HYDROmorphone 1 MG/ML 1 ML SYRINGE IVP PRN ×2 (11:10→15:22)
[2019-04-01 12:16] LABS: Glucose,Whole Blood 170 mg/dL (75-99)
[2019-04-01] MEDS ORDERED: IPRATROPIUM-ALBUTEROL 3 ML NEB INHALATION PRN (15:15)
[2019-04-01] MEDS: IPRATROPIUM-ALBUTEROL 3 ML NEB INHALATION SCH ×2 (15:17→19:56)
--- NOTE | 2019-04-01 15:20 | P.CNPUL ---
History of Present Illness Consult date: 04/01/19 Chief complaint: COPD, obstructive sleep apnea, postop following arthroplasty History of present illness: 59-year-old male patient underwent a right knee arthroplasty and currently is postop with an estimated blood loss of 30 mL and trough. The patient is awake and alert. He has a micropore for pain control. In fact he has no significant pain at this point in time. His, comfortable awake and hemodynamically stable. The patient is very well-known to me. He has history of COPD and obstructive sleep apnea was admitted on a BiPAP on outpatient basis. His morbid obesity BMI 40.7. He has hypertension and hyperlipidemia and chronic back pain in his undergone a previous lumbar laminectomy. He had degenerative arthritis with multiple joint disease. Note that the patient was completing course of antibiotics on outpatient basis for symptoms of bronchitis. He has completed a course of Augmentin. Review of Systems Patient reports shortness of breath and sleep apnea but reports no cough, no wheezing, and no coughing up blood. He reports arthralgias/joint pain and back pain but reports no muscle aches, no muscle weakness, and no swelling in the extremities; chronic neck pain. He reports numbness but reports no loss of consciousness, no weakness, no seizures, no dizziness, no migraines, no headaches, and no tremor; in the left thigh. He reports no fever, no night sweats, no significant weight gain, no significant weight loss, and no exercise intolerance. He reports no dry eyes, no vision change, and no irritation. He reports no difficulty hearing and no ear pain. He reports no frequent nosebleed s, no nose problems, and no sinus problems. He reports no sore throat, no bleeding gums, no snoring, no dry mouth, no mouth ulcers, no oral abnormalities, and no teeth problems. He reports no chest pain, no arm pain on exertion, no shortness of breath when walking, no shortness of breath when lying down, no palpitations, and no known heart murmur. He reports no abdominal pain, no nausea, no vomiting, no constipation, normal appetite, no diarrhea, not vomiting blood, no dyspepsia, and no GERD. He reports no incontinence, no difficulty urinating, no hematuria, and no increased frequency. He reports no abnormal mole, no jaundice, no rashes, and no laceration. He reports no depression, no sleep disturbances, feeling safe in a relationship, no alcohol abuse, no anxiety, no hallucinations, and no suicidal thoughts. He reports no fatigue. He reports no swollen glands, no bruising, and no excessive bleeding. He reports no runny nose, no sinus pressure, no itching, no hives, and no frequent sneezing. Past Medical History Past Medical History: Coronary Artery Disease (CAD), Heart Failure, COPD, Diabetes Mellitus, Deep Vein Thrombosis (DVT), Hearing Disorder / Deafness, Hyperlipidemia, Hypertension, Osteoarthritis (OA), Sleep Apnea/CPAP/BIPAP, Thyroid Disorder Additional Past Medical History / Comment(s): CPAP; remote history of DVT as a teen; Lt ear has sl hearing loss. Current cold sx, began po AB Rx 03/26/19. History of Any Multi-Drug Resistant Organisms: None Reported Date of last positivie culture/infection: None MDRO Source:: None Past Surgical History: Adenoidectomy, Back Surgery, Heart Catheterization With Stent, Hernia Repair, Orthopedic Surgery, Tonsillectomy Additional Past Surgical History / Comment(s): lumbar fusion, repair hydrocele, arthroscopy right knee, hand surg, left total knee replacement Past Anesthesia/Blood Transfusion Reactions: No Reported Reaction Date of Last Stent Placement:: 2007 Past Psychological History: No Psychological Hx Reported Smoking Status: Current every day smoker Past Alcohol Use History: Rare Additional Past Alcohol Use History / Comment(s): 2ppd since 1978 Past Drug Use History: None Reported - Past Family History Mother Family Medical History: No Reported History Medications and Allergies Home Medications Medication Instructions Recorded Confirmed Type Ipratropium-Albuterol Nebulize 3 ml INHALATION Q4-6H 01/03/18 04/01/19 History [Duoneb 0.5 mg-3 mg/3 ml Soln] Ipratropium/Albuterol Sulfate 1 - 2 puff INHALATION RT-QID PRN 01/03/18 04/01/19 History [Combivent Respimat Inhaler] Levothyroxine Sodium [Synthroid] 88 mcg PO DAILY 01/03/18 04/01/19 History Lisinopril [Zestril] 10 mg PO BID 01/03/18 04/01/19 History Oxymetazoline 0.05% Nasl [place] 1 - 2 spray EA NOSTRIL HS 01/03/18 04/01/19 History [Afrin 0.05% Nasal [place]] Pravastatin Sodium [Pravachol] 20 mg PO HS 01/03/18 04/01/19 History metFORMIN HCL [Glucophage] 500 mg PO QAM 01/03/18 04/01/19 History Amoxic-Pot Clav 875-125Mg 1 tab PO Q12HR 03/27/19 04/01/19 History [Augmentin 875-125] Aspirin [Adult Low Dose Aspirin EC] 81 mg PO DAILY 03/27/19 04/01/19 History Phenylephrine/Dm/Acetaminop/GG 2 each PO Q6H PRN 03/27/19 04/01/19 History [Tylenol Cold-Flu Severe [place]] Sildenafil Citrate [Viagra] 50 mg PO ONCE PRN 03/27/19 04/01/19 History Allergies Allergy/AdvReac Type Severity Reaction Status Date / Time No Known Allergies Allergy Verified 04/01/19 06:11 Physical Exam Vitals: Vital Signs Temp Pulse Pulse Resp BP Pulse Ox 04/01/19 15:00 98.5 F 98 16 122/64 89 L 04/01/19 12:30 92 124/68 04/01/19 12:15 77 124/77 04/01/19 12:00 72 121/78 04/01/19 11:45 91 132/64 04/01/19 11:30 85 124/85 04/01/19 11:15 89 126/74 04/01/19 11:00 89 121/80 04/01/19 10:45 88 123/78 04/01/19 10:01 90 18 151/70 90 L 04/01/19 09:46 94 18 145/74 93 L 04/01/19 09:31 97.2 F L 99 16 143/77 94 L 04/01/19 09:26 88 18 132/77 90 L 04/01/19 07:20 77 18 147/96 94 L 04/01/19 06:44 97.6 F 83 20 157/97 93 L 04/01/19 06:26 97.6 F 83 20 157/97 93 L Intake and Output 04/01/19 04/01/19 04/01/19 06:59 14:59 22:59 Intake Total 300 961 Output Total 30 Balance 300 931 Intake: IV 300 901 Intake, IV Titration 60 Amount Lactated Ringers 1,000 ml 60 @ 20 mls/hr IV .Q24H [facility] Rx#:[id number] Output: Estimated Blood Loss 30 Other: Weight 116.12 kg Gen. appearance he is obese, comfortable likely distress Head exam was generally normal. There was no scleral icterus or corneal arcus. Mucous membranes were moist. Neck was supple and without jugular venous distension, thyromegaly, or carotid bruits. Carotids were easily palpable bilaterally. There was no adenopathy. Mallampati class 4 without any goiter or neck masses. Lungs sounds are diminished bilaterally otherwise clear. Few scattered expiratory wheezes upon forceful expiratory maneuvers. Cardiac exam revealed the PMI to be normally situated and sized. The rhythm was regular and no extrasystoles were noted during several minutes of auscultation. The first and second heart sounds were normal and physiologic splitting of the second heart sound was noted. There were no murmurs, rubs, clicks, or gallops. Abdominal exam revealed normal bowel sounds. The abdomen was soft, non-tender, and without masses, organomegaly, or appreciable enlargement of the abdominal aorta. Extremities reveal a clean surgical wound site over the right knee area. Neurovascularly intact. Pulses are equal and symmetrical bilaterally. Examination of the skin revealed no evidence of significant rashes, suspicious appearing nevi or other concerning lesions. Neurologically awake and alert and there is no focal neurological deficit. Results - Laboratory Findings Abnormal lab findings: Abnormal Labs 04/01/19 04/01/19 04/01/19 06:22 09:49 12:00 POC Glucose (mg/dL) 142 H 184 H 170 H Assessment and Plan Plan: 1 right knee arthroplasty and the patient is postop day #0, recovering well from surgery awake and alert and hemodynamically stable with adequate pain control 2 obstructive sleep apnea maintained on BiPAP therapy at a pressure of 13/9 cm of water utilizing a dream where gel pillow 3 COPD maintained on Combivent on a when necessary basis 4 obesity with a BMI 40.7 5 essential hypertension 6 chronic back pain post lumbar laminectomy 7 hyperlipidemia 8 history of smoking 9 coronary artery disease Plan Reconcile home medication. The patient has adequate pain control. Lovenox for DVT prophylaxis. Additionally Dilaudid 0.5 mg every 3 hours on a when necessary basis for pain control. Provide patient incentive spirometer. DuoNeb nebulized treatments 4 times a day [id number]. Utilizes BiPAP at the same pressures and the patient has is on BiPAP machine that'll be utilized overnight. We'll continue to follow.
[2019-04-01 17:04] LABS: Glucose,Whole Blood 222 mg/dL (75-99)
--- NOTE | 2019-04-01 19:29 | XR ---
EXAMINATION TYPE: XR chest 1V portable DATE OF EXAM: 04/01/2019 COMPARISON: 04/19/2010 HISTORY: Hypoxemia TECHNIQUE: Single frontal view of the chest is obtained. FINDINGS: There is some linear density at the lung bases. There is no heart failure. There is no ple ural effusion. There are no hilar masses. IMPRESSION: There is some atelectasis at both lung bases that is new compared to last exam.
[2019-04-01 20:02] LABS: Glucose,Whole Blood 173 mg/dL (75-99)
[2019-04-01] MEDS ORDERED: OXYMETAZOLINE 0.05% NASL SPRAY 1 SPRAY BOTTLE EA NOSTRIL PRN (21:00)
[2019-04-01] MEDS: PRAVASTATIN SODIUM 20 MG TAB PO SCH (21:11)
[2019-04-01] MEDS: SENNOSIDES-DOCUSATE SODIUM 1 EACH TAB PO SCH (21:11)
[2019-04-01] MEDS: INSULIN ASPART (NovoLOG) 100 UNIT/ML VIAL SQ SCH (21:11)
[2019-04-01] MEDS: LISINOPRIL 10 MG TAB PO SCH (21:11)
--- NOTE | 2019-04-01 21:11 | CONS ---
CONSULTATION DATE OF SERVICE: 04/01/2019 REASON FOR CONSULTATION: Advice regarding diabetes and other multiple medical issues, requested by Dr. Patton. HISTORY OF PRESENT ILLNESS: This 59-year-old gentleman with a past medical history of multiple medical problems including history of CAD, CHF, COPD, diabetes type 2, DVT, history of hypertension, hyperlipidemia, history of DJD being followed by Dr. Shawna Trejo in the outpatient setting underwent right total knee arthroplasty by Dr. Patton. The patient also seeing Dr. Gauthier for COPD and obstructive sleep apnea and was on BiPAP as well. The patient has occasional cough and recently has been finishing a course of outpatient upper respiratory symptoms and bronchitis. The patient has completed a course of Augmentin. There is no history of any fever, rigors. No history of headache, loss of consciousness, seizures at this time. PAST MEDICAL HISTORY: History of CAD, CHF, COPD, diabetes, DVT, hypertension, hyperlipidemia, DJD, history of sleep apnea, CPAP. MEDICATIONS: Prior to admission, home medications are: 1. Glucophage 500 mg p.o. q.a.m. 2. Viagra 50 mg p.r.n. 3. Pravachol 20 mg q.h.s. 4. Tylenol 2 tablets q.6h p.r.n. 5. Afrin nasal drops. 6. Zestril 10 mg p.o. b.i.d. 7. Synthroid 88 mcg p.o. daily. 8. Combivent 2 puffs q.i.d. p.r.n. 9. DuoNeb q.6h. 10.Aspirin 81 mg daily. ALLERGIES: None. FAMILY HISTORY: No history of heart disease or strokes in the family. SOCIAL HISTORY: History of smoking, continued ongoing history. Occasional history of alcohol intake. REVIEW OF SYSTEMS: ENT: No diminished vision. No diminished hearing. Cardiovascular as mentioned earlier. RESPIRATORY: As mentioned earlier. GI no nausea or vomiting. no dysuria or hematuria. Nervous system: No numbness or weakness. ALLERGY/IMMUNOLOGY: No asthma or hayfever. MUSCULOSKELETAL: As mentioned earlier. HEMATOLOGY/ONCOLOGY: No history of anemia. ENDOCRINE: Hypothyroidism and as well as diabetes. CONSTITUTIONAL: As mentioned earlier. DERMATOLOGY negative. RHEUMATOLOGY as mentioned earlier. PSYCHIATRY as mentioned earlier. PHYSICAL EXAMINATION: The patient is alert and oriented times three. Pulse 98. Blood pressure 120/64, respirations 16, temperature 98.5, pulse ox 89 percent on 4 L. HEENT is conjunctivae normal. Oral mucosa moist. NECK is no jugular venous distention. No carotid bruit. No lymph node enlargement. Cardiovascular system: S1, S2 muffled. Respirations: Breath sounds diminished in the bases. A few scattered rhonchi and crackles. ABDOMEN: Soft. Nontender. LEGS: No edema. No swelling. Status post surgery. CENTRAL NERVOUS SYSTEM: No focal deficits. SKIN: No ulcers, no rashes and no bleeding. JOINTS: As mentioned earlier. LABORATORY DATA: Accu-Cheks 142, 172, 122. Otherwise, labs: CBC within normal limits. CMP showed sodium 132. ASSESSMENT: 1. Status post right total knee arthroplasty. 2. History of obstructive sleep apnea on BiPAP. 3. Chronic obstructive pulmonary disease. 4. Obesity with body mass index of 40.7. 5. Mild hyponatremia prior to admission. 6. Diabetes mellitus type 2. 7. History of congestive heart failure, ejection fraction unknown. 8. History of deep vein thrombosis. 9. Hypertension. 10.Hyperlipidemia. 11.History of degenerative joint disease. 12.Obstructive sleep apnea. 13.CPAP. 14.History of left ear hearing . 15.Appendectomy. 16.History of back surgery. 17.History of coronary artery disease/stent. 18.History of tonsillectomy. 19.History of lumbar fusion. 20.FULL CODE. RECOMMENDATIONS AND DISCUSSION: This 59-year-old gentleman who presented with multiple medical issues, at this time I recommend to continue current medications, symptomatic treatment. Resume the home medications. I would also recommend a chest x-ray. Otherwise, the patient is started on Lovenox 30 mg subcu b.i.d. Recommend to continue the DVT prophylaxis. Continue rest of medications. Closely follow with Dr. Gauthier. Guarded prognosis because of multiple complex medical issues. Further recommendations to follow. A copy of dictation being forwarded to Dr. Shawna Trejo who is the primary physician. [email or web address] / ESTHERN: [id number] / MTDD
[2019-04-01] MEDS: ENOXAPARIN 30 MG/0.3 ML SYRINGE SQ SCH (21:18)
[2019-04-02] MEDS ORDERED: LEVOTHYROXINE 88 MCG TAB ONE (00:10)
[2019-04-02] MEDS ORDERED: HYDROmorphone 1 MG/ML 1 ML SYRINGE ONE (00:10)
[2019-04-02] MEDS ORDERED: IPRATROPIUM-ALBUTEROL 3 ML NEB ONE (00:10)
[2019-04-02] MEDS: HYDROmorphone 1 MG/ML 1 ML SYRINGE IVP PRN ×5 (05:49→20:53)
[2019-04-02] MEDS: LEVOTHYROXINE 88 MCG TAB PO SCH (05:50)
[2019-04-02 07:04] LABS: Glucose,Whole Blood 148 mg/dL (75-99)
[2019-04-02] MEDS: INSULIN ASPART (NovoLOG) 100 UNIT/ML VIAL SQ SCH ×4 (07:22→20:28)
[2019-04-02] MEDS: IPRATROPIUM-ALBUTEROL 3 ML NEB INHALATION SCH ×4 (08:08→20:25)
[2019-04-02] MEDS: LISINOPRIL 10 MG TAB PO SCH ×2 (08:25→20:53)
[2019-04-02] MEDS: metFORMIN 500 MG TAB PO SCH (08:25)
[2019-04-02] MEDS: MELOXICAM 7.5 MG TAB PO SCH (08:25)
[2019-04-02] MEDS: ASPIRIN 81 MG PO SCH (08:26)
[2019-04-02] MEDS: ENOXAPARIN 30 MG/0.3 ML SYRINGE SQ SCH ×2 (08:26→20:52)
[2019-04-02 08:59] LABS: Basophils # (A) 0.1 k/uL (0-0.2); Basophils % (A) 1 %; Eosinophils # (A) 0.1 k/uL (0-0.7); Eosinophils % (A) 1 %; HGB 14.7 gm/dL (13.0-17.5); Lymphocytes # (A) 1.3 k/uL (1.0-4.8); Lymphocytes % (A) 11 %; MCH 32.4 pg (25.0-35.0); MCHC 32.7 g/dL (31.0-37.0); Mean Platelet Volume 6.8; Monocytes # (A) 0.7 k/uL (0-1.0); Monocytes % (A) 6 %; Neutrophils # (A) 8.7 k/uL (1.3-7.7); Neutrophils % (A) 80 %; Platelet Count 186 k/uL (150-450); RBC 4.55 m/uL (4.30-5.90); RDW 13.6 % (11.5-15.5)
--- NOTE | 2019-04-02 10:33 | P.PN ---
Subjective Progress Note Date: 04/02/19 Principal diagnosis: status post right total knee arthroplasty Patient evaluated at bedside, is resting comfortably in his chair. His pain is well-controlled. Reasonably well with therapy. He was noted to have low O2 saturations, he is utilizing a nasal canula at this time. Denies any chest pain or shortness of breath. Objective - Vital Signs Vital signs: Vital Signs Temp 97.9 F 04/02/19 07:10 Pulse 84 04/02/19 08:21 Resp 18 04/02/19 07:10 BP 129/72 04/02/19 07:10 Pulse Ox 90 L 04/02/19 08:29 Intake & Output 04/01/19 04/02/19 04/02/19 18:59 06:59 18:59 Intake Total 961 300 Output Total 30 1300 400 Balance 931 -1300 -100 Intake: IV 901 Intake, IV Titration 60 Amount Lactated Ringers 1,000 ml 60 @ 20 mls/hr IV .Q24H [facility] Rx#:[id number] Oral 300 Output: Urine 1300 400 Estimated Blood Loss 30 Other: Voiding Method Urinal Urinal Urinal - Exam Right lower extremity: Incision is clean, dry, and intact. The exofin fusion tape is in good condition. There is minimal soft tissue swelling and ecchymosis surrounding the medial and lateral aspects of the incision. Calf is soft, no tenderness with palpation. Plantar flexion, dorsiflexion, EHL, FHL are intact. Sensory exam to light touch throughout the extremity is intact, dorsal pedis pulses 2+. - Labs CBC & Chem 7: 04/02/19 08:27 Labs: Abnormal Lab Results - Last 24 Hours (Table) 04/01/19 04/01/19 04/01/19 Range/Units 12:00 16:52 20:00 WBC (3.8-10.6) k/uL Neutrophils # (1.3-7.7) k/uL POC Glucose (mg/dL) 170 H 222 H 173 H (75-99) mg/dL 04/02/19 04/02/19 Range/Units 07:02 08:27 WBC 11.0 H (3.8-10.6) k/uL Neutrophils # 8.7 H (1.3-7.7) k/uL POC Glucose (mg/dL) 148 H (75-99) mg/dL Assessment and Plan Plan: assessment: Postop day 1 status post right total knee arthroplasty Plan: Pain control, continue oral medication GI and DVT prophylaxis, continue medication Ice and elevate often/daily dressing changes Encourage incentive spirometer Continue work physical therapy Medical recommendations We'll keep patient one additional night due to O2 sats, plan for discharge home tomorrow Time with Patient: Less than 30
[2019-04-02 11:52] LABS: Glucose,Whole Blood 137 mg/dL (75-99)
--- NOTE | 2019-04-02 12:15 | P.PN ---
Subjective Progress Note Date: 04/02/19 Today's evaluation of 04/02/2019 the patient is still in the right knee. He is postop day #1. His pain scale is currently 8 out of 10. He is also on Dilaudid for pain control. He is walking. He is using incentive spirometer. His bowling approximately 1500 on dialysis. Hemoglobin stable at 14.7. Is utilizing his BiPAP overnight. He was found to be hypoxic and he was found to be hypoxic and he was placed on oxygen at 4 L. Currently is on room air. He is not wearing his oxygen consistently knowing that he is not feeling any difference. No chest pain. No nausea. No vomiting. No diarrhea. Tolerating his diet. No other significant events otherwise. Hemoglobin stable. Objective - Vital Signs Vital signs: Vital Signs Temp 97.9 F 04/02/19 07:10 Pulse 84 04/02/19 11:33 Resp 18 04/02/19 07:10 BP 129/72 04/02/19 07:10 Pulse Ox 90 L 04/02/19 08:29 Intake & Output 04/01/19 04/02/19 04/02/19 18:59 06:59 18:59 Intake Total 961 300 Output Total 30 1300 400 Balance 931 -1300 -100 Intake: IV 901 Intake, IV Titration 60 Amount Lactated Ringers 1,000 ml 60 @ 20 mls/hr IV .Q24H [facility] Rx#:[id number] Oral 300 Output: Urine 1300 400 Estimated Blood Loss 30 Other: Voiding Method Urinal Urinal Urinal - Exam Gen. appearance he is obese, comfortable likely distress Head exam was generally normal. There was no scleral icterus or corneal arcus. Mucous membranes were moist. Neck was supple and without jugular venous distension, thyromegaly, or carotid bruits. Carotids were easily palpable bilaterally. There was no adenopathy. Mallampati class 4 without any goiter or neck masses. Lungs sounds are diminished bilaterally otherwise clear. Few scattered expiratory wheezes upon forceful expiratory maneuvers. Cardiac exam revealed the PMI to be normally situated and sized. The rhythm was regular and no extrasystoles were noted during several minutes of auscultation. The first and second heart sounds were normal and physiologic splitting of the second heart sound was noted. There were no murmurs, rubs, clicks, or gallops. Abdominal exam revealed normal bowel sounds. The abdomen was soft, non-tender, and without masses, organomegaly, or appreciable enlargement of the abdominal aorta. Extremities reveal a clean surgical wound site over the right knee area. Neurovascularly intact. Pulses are equal and symmetrical bilaterally. Examination of the skin revealed no evidence of significant rashes, suspicious appearing nevi or other concerning lesions. Neurologically awake and alert and there is no focal neurological deficit. - Labs CBC & Chem 7: 04/02/19 08:27 Labs: Abnormal Lab Results - Last 24 Hours (Table) 04/01/19 04/01/19 04/01/19 Range/Units 12:00 16:52 20:00 WBC (3.8-10.6) k/uL Neutrophils # (1.3-7.7) k/uL POC Glucose (mg/dL) 170 H 222 H 173 H (75-99) mg/dL 04/02/19 04/02/19 04/02/19 Range/Units 07:02 08:27 11:51 WBC 11.0 H (3.8-10.6) k/uL Neutrophils # 8.7 H (1.3-7.7) k/uL POC Glucose (mg/dL) 148 H 137 H (75-99) mg/dL Assessment and Plan Plan: 1 right knee arthroplasty and the patient is postop day #1, recovering well from surgery awake and alert and hemodynamically stable with adequate pain control 2 obstructive sleep apnea maintained on BiPAP therapy at a pressure of 13/9 cm of water utilizing a dream where gel pillow 3 COPD maintained on Combivent on a when necessary basis 4 obesity with a BMI 40.7 5 essential hypertension 6 chronic back pain post lumbar laminectomy 7 hyperlipidemia 8 history of smoking 9 coronary artery disease Plan Using incentive spirometer. Deep breathing. Oxygen is used as needed. Pain control. Possible discharge home in a.m. He is utilizing his BiPAP overnight. Hemoglobin stable at 14.7. DVT prophylaxis. We'll follow.
--- NOTE | 2019-04-02 14:31 | P.PN ---
Progress Note - Text Progress Note Date: 04/02/19 Patient seen at 6:30 am. Pt without complaints. Pain controlled. Denies leg weakness. Right adductor canal catheter site clean and dry. OnQ @ 8 ml/hr A/P POD#1 s/p R TKA - continue onQ @ 8 ml/hr
[2019-04-02] MEDS: HYDROcodone/APAP 5-325MG 1 EACH TAB PO PRN (15:13)
[2019-04-02 16:56] LABS: Glucose,Whole Blood 144 mg/dL (75-99)
--- NOTE | 2019-04-02 19:19 | PN ---
PROGRESS NOTE DATE OF SERVICE: 04/02/2019. This 59-year-old gentleman who was admitted with right total knee arthroplasty is being closely monitored. No chest pain. No palpitations. No fever. EXAM: Alert and oriented x3. Pulse is 97. Blood pressure 130/75. Respirations 22, temperature 98 degrees, pulse ox 92% on 4 L. HEENT: Conjunctivae normal. NECK: No JVD. CARDIOVASCULAR: S1, S2 muffled. RESPIRATORY SYSTEM: Breath sounds diminished at the bases. No rhonchi. No crackles. ABDOMEN is soft. LEGS status post surgery. NERVOUS SYSTEM: No focal deficits. LABS: Accu-Cheks 148, 137, 144, WBC 11. ASSESSMENT: 1. Status post right total knee arthroplasty. 2. History of obstructive sleep apnea, on BiPAP. 3. Diabetes mellitus type 2. 4. Chronic obstructive pulmonary disease. 5. Obesity with body mass index of 40.7. 6. Mild hyponatremia prior to admission. 7. History of congestive heart failure, ejection fraction unknown. 8. History of deep vein thrombosis. 9. Hypertension. 10.History of degenerative joint disease. 11.Obstructive sleep apnea. 12.CPAP/BiPAP. 13.Appendectomy. 14.History of back surgery. 15.History of coronary artery disease/ stent. 16.History of tonsillectomy. 17.History of lumbar fusion. 18.FULL CODE. RECOMMENDATIONS AND DISCUSSION: Recommend to continue current medications, continue to monitoring, management and symptomatic treatment. Monitor blood sugars closely. Incentive spirometry. DVT prophylaxis. Continue with scale coverage currently and further recommendations to follow. Recommend close followup in the outpatient setting with primary physician. MMODL / IJN: [id number] /
[2019-04-02 20:28] LABS: Glucose,Whole Blood 119 mg/dL (75-99)
[2019-04-02] MEDS: SENNOSIDES-DOCUSATE SODIUM 1 EACH TAB PO SCH (20:52)
[2019-04-02] MEDS: PRAVASTATIN SODIUM 20 MG TAB PO SCH (20:52)
[2019-04-02] MEDS: LACTATED RINGERS 1,000 ML IV SCH (22:21)
[2019-04-03] MEDS: HYDROcodone/APAP 5-325MG 1 EACH TAB PO PRN ×2 (00:19→07:31)
[2019-04-03] MEDS: LEVOTHYROXINE 88 MCG TAB PO SCH (04:41)
[2019-04-03] MEDS: INSULIN ASPART (NovoLOG) 100 UNIT/ML VIAL SQ SCH ×2 (07:26→11:51)
[2019-04-03 07:28] LABS: Glucose,Whole Blood 161 mg/dL (75-99)
[2019-04-03] MEDS: ASPIRIN 81 MG PO SCH (07:30)
[2019-04-03] MEDS: MELOXICAM 7.5 MG TAB PO SCH (07:30)
[2019-04-03] MEDS: LISINOPRIL 10 MG TAB PO SCH (07:30)
[2019-04-03] MEDS: metFORMIN 500 MG TAB PO SCH (07:30)
[2019-04-03] MEDS: ENOXAPARIN 30 MG/0.3 ML SYRINGE SQ SCH (07:30)
[2019-04-03] MEDS: IPRATROPIUM-ALBUTEROL 3 ML NEB INHALATION SCH ×2 (07:43→12:00)
[2019-04-03 07:46] VITALS: BP 165/74; RESP 18; TEMP 97.6
--- NOTE | 2019-04-03 08:51 | P.PN ---
Subjective Progress Note Date: 04/03/19 Principal diagnosis: status post right total knee arthroplasty Patient evaluated at bedside, is resting comfortably in his chair. His pain is well-controlled. Denies any chest pain or shortness of breath. Objective - Vital Signs Vital signs: Vital Signs Temp 97.6 F 04/03/19 07:00 Pulse 88 04/03/19 07:57 Resp 18 04/03/19 07:00 BP 165/74 04/03/19 07:00 Pulse Ox 90 L 04/03/19 07:00 Intake & Output 04/02/19 04/03/19 04/03/19 18:59 06:59 18:59 Intake Total 600 840 Output Total 700 100 Balance -100 740 Intake: Oral 600 840 Output: Urine 700 100 Other: Voiding Method Urinal Urinal - Exam Right lower extremity: Incision is clean, dry, and intact. The exofin fusion tape is in good condition. There is minimal soft tissue swelling and ecchymosis surrounding the medial and lateral aspects of the incision. Calf is soft, no tenderness with palpation. Plantar flexion, dorsiflexion, EHL, FHL are intact. Sensory exam to light touch throughout the extremity is intact, dorsal pedis pulses 2+. - Labs CBC & Chem 7: 04/02/19 08:27 Labs: Abnormal Lab Results - Last 24 Hours (Table) 04/02/19 04/02/19 04/02/19 Range/Units 08:27 11:51 16:54 WBC 11.0 H (3.8-10.6) k/uL Neutrophils # 8.7 H (1.3-7.7) k/uL POC Glucose (mg/dL) 137 H 144 H (75-99) mg/dL 04/02/19 04/03/19 Range/Units 20:25 07:14 WBC (3.8-10.6) k/uL Neutrophils # (1.3-7.7) k/uL POC Glucose (mg/dL) 119 H 161 H (75-99) mg/dL Assessment and Plan Plan: assessment: Postop day #2 status post right total knee arthroplasty Plan: Pain control, plan for Rose 7.5mg/325mg GI and DVT prophylaxis, aspirin 81mg bid Ice and elevate often/daily dressing changes Encourage incentive spirometer Continue work physical therapy Medical recommendations Discharge home today Time with Patient: Less than 30
--- NOTE | 2019-04-03 08:55 | P.DS ---
Providers Date of admission: 04/01/2019 Expected date of discharge: 04/03/19 Attending physician: Milind Patton Consults: 04/01/19 09:22 Consult Physician Routine Consulting Provider: Jose Gauthier Consult Reason/Comments: Medical management Do you want consulting provider notified?: Yes Primary care physician: Shawna Trejo Hospital Course: Date of admission: 04/01/2019 Date of discharge: 04/03/2019 Admission diagnosis: Status post right total knee arthroplasty Discharge diagnosis: Same Attending physician: Dr. Patton Surgical procedures: Right total knee arthroplasty Brief history: Patient is a 59-year-old male with a history of progressive primary right knee osteoarthritis. At this point patient has failed conservative treatment measures and has opted to proceed with a elective right total knee arthroplasty. Hospital course: Details of patient's surgery can be found in operative report. Patient tolerated the procedure well and was subsequently transported to orthopedic floor. Patient's orthopeidc and medical care was provided daily. Patient had daily laboratory tests performed for evaluation of overall blood counts. Patient had daily physical therapy to include strengthening range of motion as well as education with walker ambulation. Patient had daily CPM usage as part of their physical therapy program. Patient was treated with Lovenox for their postoperative DVT prophylaxis during their inpatient stay. Patient was noted to have a relatively uneventful postoperative course. Patient reported satisfactory pain control with oral pain medications by postoperative day 0. Patient showed satisfactory progress with physical therapy. Patient moved steadily through the program and had no difficulty meeting the goals by postoperative day 2. Given patient's otherwise satisfactory course and having met physical therapy goals, plan is to discharge patient home on postoperative day 2. Discharge condition/disposition: Patient will be discharged home in stable condition. Discharge medications: Instructions are given on resumption of patient's normal daily medications per primary care recommendation, in addition patient will be prescribed [place] 7.5 mg/325 mg, Colace 100 mg, aspirin 81 mg. Discharge instructions: 1. Wound care and infection precautions, keep incision dry and covered while showering, no lotions, creams, moisturizers. No soaking, tubs, pools, hottubs. Do not scrub over the incision. 2. Weight-bear as tolerated with walker / cane until follow-up. 3. Ice and elevate when necessary. Do not exceed 20 minutes per hour with ice pack. 4. Utilize compression sleeve until seen at first follow up appointment. 5. Visiting nursing care. 6. Home physical therapy including home CPM. 7. Pain meds and anticoagulants per prescription. 8. Pain medication has potential to cause constipation. Increase oral fluid and fiber intake. Contact primary care provider if you have not had a bowel movement within 48 hours after discharge 9. No anti-inflammatory medication until discussed at first post operative visit, this including Motrin, Aleve, Mobic, Diclofenac. 10. Follow up in office at 2 weeks postop with Torrey Arguelles PA-C 11. Follow up with your primary care doctor 7-10 days after discharge. 12. Contact [facility] with any questions, . Procedures: right total knee arthroplasty Patient Condition at Discharge: Good Plan - Discharge Summary Discharge Rx Participant: Yes New Discharge Prescriptions: New Aspirin [Adult Low Dose Aspirin EC] 81 mg PO BID #60 tablet. Docusate [Colace] 100 mg PO DAILY #30 capsule HYDROcodone/APAP 7.5-325MG [[place] 7.5] 1 - 2 each PO Q6HR PRN #56 tab PRN Reason: Pain No Action metFORMIN HCL [Glucophage] 500 mg PO QAM Pravastatin Sodium [Pravachol] 20 mg PO HS Oxymetazoline 0.05% Nasl [place] [Afrin 0.05% Nasal [place]] 1 - 2 spray EA NOSTRIL HS Levothyroxine Sodium [Synthroid] 88 mcg PO DAILY Ipratropium/Albuterol Sulfate [Combivent Respimat Inhaler] 1 - 2 puff INHALATION RT-QID PRN PRN Reason: Dyspnea Lisinopril [Zestril] 10 mg PO BID Ipratropium-Albuterol Nebulize [Duoneb 0.5 mg-3 mg/3 ml Soln] 3 ml INHALATION Q4-6H Amoxic-Pot Clav 875-125Mg [Augmentin 875-125] 1 tab PO Q12HR Sildenafil Citrate [Viagra] 50 mg PO ONCE PRN PRN Reason: ERECTILE DYSFUNCTION Phenylephrine/Dm/Acetaminop/GG [Tylenol Cold-Flu Severe [place]] 2 each PO Q6H PRN PRN Reason: COLD SX Discharge Medication List Ipratropium-Albuterol Nebulize [Duoneb 0.5 mg-3 mg/3 ml Soln] 3 ml INHALATION Q4-6H 01/03/18 [History] Ipratropium/Albuterol Sulfate [Combivent Respimat Inhaler] 1 - 2 puff INHALATION RT-QID PRN 01/03/18 [History] Levothyroxine Sodium [Synthroid] 88 mcg PO DAILY 01/03/18 [History] Lisinopril [Zestril] 10 mg PO BID 01/03/18 [History] Oxymetazoline 0.05% Nasl [place] [Afrin 0.05% Nasal [place]] 1 - 2 spray EA NOSTRIL HS 01/03/18 [History] Pravastatin Sodium [Pravachol] 20 mg PO HS 01/03/18 [History] metFORMIN HCL [Glucophage] 500 mg PO QAM 01/03/18 [History] Amoxic-Pot Clav 875-125Mg [Augmentin 875-125] 1 tab PO Q12HR 03/27/19 [History] Phenylephrine/Dm/Acetaminop/GG [Tylenol Cold-Flu Severe Cap[place]] 2 each PO Q6H PRN 03/27/19 [History] Sildenafil Citrate [Viagra] 50 mg PO ONCE PRN 03/27/19 [History] Aspirin [Adult Low Dose Aspirin EC] 81 mg PO BID #60 tablet.dr 04/03/19 [Rx] Docusate [Colace] 100 mg PO DAILY #30 capsule 04/03/19 [Rx] HYDROcodone/APAP 7.5-325MG [[place] 7.5] 1 - 2 each PO Q6HR PRN #56 tab 04/03/19 [Rx] Follow up Appointment(s)/Referral(s): [facility] [NON-STAFF] - As Needed (Continuous Passive Motion knee machine) [facility], [NON-STAFF] - As Needed Shawna Trejo MD [Primary Care Provider] - 1 Week Alcides Arguelles PAC [PHYSICIAN [employer]AURANT FRONT MANAGER] - 04/17/19 2:20 pm Activity/Diet/Wound Care/Special Instructions: Orthopedic Discharge Instructions: 1. Wound care and infection precautions, keep incision dry and covered while showering, no lotions, creams, moisturizers. No soaking, pools, hot tubs. Do not scrub over incision. 2. Weight-bear as tolerated with walker / cane until follow-up. 3. Ice and elevate when necessary. Do not exceed 20 minutes per hour with ice pack. 4. Utilize compression sleeve until seen at first follow up appointment. 5. Pain meds and anticoagulants per prescription. 6. Pain medication has potential to cause constipation. Increase oral fluid and fiber intake. Contact primary care provider if you have not had a bowel movement within 48 hours after discharge. 7. No anti-inflammatory medication until discussed at first post operative visit, this including Motrin, Aleve, Mobic, Diclofenac. 8. Follow up in office at 2 weeks postop with Torrey Arguelles PA-C 9. Follow up with your primary care doctor 7-10 days after discharge. 10. Contact [facility] with any questions, . Pain catheter instructions: Please remove pain catheter on 04/04/2019, throw all materials in the garbage Discharge Disposition: HOME WITH HOME HEALTH SERVICES
[2019-04-03 11:50] LABS: Glucose,Whole Blood 149 mg/dL (75-99)
[2019-04-03 12:12] VITALS: PULSE 84
--- NOTE | 2019-04-05 06:15 | PN ---
PROGRESS NOTE DATE OF SERVICE: 04/03/2019 PRESENTING COMPLAINT: Right knee surgery. INTERVAL HISTORY: This patient was seen by me on 04/03/2019. Right knee pain is well controlled. Working with therapy. Did tolerate his meal. No new issues. Did work with therapy. REVIEW OF SYSTEMS: Done for constitutional, cardiovascular, GI, pulmonary, musculoskeletal; relevant findings as above. CURRENT MEDICATIONS: Current medications are reviewed in today's electronic records. PHYSICAL EXAMINATION: Temperature 97.6, pulse 96, respiration 18, blood pressure 165/74, pulse ox 92% on room air. GENERAL APPEARANCE: BMI 40.7, sitting up, comfortable. EYES: Pupils equal. Conjunctivae normal. NECK: JVD not raised. Mass not palpable. RESPIRATORY: Effort normal. LUNGS: Decreased breath sounds. CARDIOVASCULAR: First and second sounds normal. No edema. ABDOMEN: Soft, nontender. Liver and spleen not palpable. PSYCHIATRY: Alert and oriented x3. Mood and affect normal. INVESTIGATIONS: Accu-Cheks are noted. Hemoglobin is 14.7. ASSESSMENT: 1. Right total knee arthroplasty. 2. Morbid obesity, body mass index 40.7. 3. Coronary artery disease with stent. 4. Chronic obstructive pulmonary disease in a current smoker. 5. Hyperlipidemia. 6. Essential hypertension. 7. Primary osteoarthritis. 8. Obstructive sleep apnea, uses a CPAP. 9. Hypothyroid. PLAN: Continue current medication and treatment plan. If patient should be discharged should follow up with his family doctor. Care was discussed the patient. Questions were answered. Thank you Dr. Patton. MMJOAQUINL / ESTHERN: [id number] /
== END 2019-04-03 12:40 | disposition home health service (06) | DRG 982 ==
LOC: OR 05:38 → 4SSUR 09:23 → OR 04-02 10:33
PROVIDERS: ADMIT Orthopaedic Surgery; ATTEND Orthopaedic Surgery
PROC: 5A09457 Assistance with Respiratory Ventilation, 24-96 Consecutive Hours, Continuous Positive Airway Pressure (ICD-10-PCS; 2019-04-01)
PROC: 0SRC0J9 Replacement of Right Knee Joint with Synthetic Substitute, Cemented, Open Approach (ICD-10-PCS; principal; 2019-04-01 07:30)
DX: R09.02 Hypoxemia (principal); Z68.41 Body mass index [BMI] 40.0-44.9, adult; E87.1 Hypo-osmolality and hyponatremia; E66.01 Morbid (severe) obesity due to excess calories; I11.0 Hypertensive heart disease with heart failure; I50.9 Heart failure, unspecified; J43.9 Emphysema, unspecified; M17.11 Unilateral primary osteoarthritis, right knee; I25.10 Atherosclerotic heart disease of native coronary artery without angina pectoris; E78.5 Hyperlipidemia, unspecified; G47.33 Obstructive sleep apnea (adult) (pediatric); G89.29 Other chronic pain; M54.9 Dorsalgia, unspecified; E03.9 Hypothyroidism, unspecified; E11.9 Type 2 diabetes mellitus without complications; H91.92 Unspecified hearing loss, left ear; F17.210 Nicotine dependence, cigarettes, uncomplicated; Z79.890 Hormone replacement therapy; Z79.84 Long term (current) use of oral hypoglycemic drugs; Z79.899 Other long term (current) drug therapy; Z86.718 Personal history of other venous thrombosis and embolism; Z96.652 Presence of left artificial knee joint; Z99.89 Dependence on other enabling machines and devices; Z98.1 Arthrodesis status; Z95.5 Presence of coronary angioplasty implant and graft; Z98.890 Other specified postprocedural states
CPT/HCPCS: 64448; 71045; 76942; 85025; 88300; 94640; 94760

== ENCOUNTER → 2019-04-19 | Outpatient (CLI) | payer BC, MEDICARE ==
--- NOTE | 2019-04-22 07:16 | US ---
EXAMINATION TYPE: US venous doppler duplex LE RT DATE OF EXAM: 04/19/2019 3:59 PM COMPARISON: NONE CLINICAL HISTORY: R22.41 SWELLING RT LOWER LIMB. Pt states right leg swelling s/p right total knee SIDE PERFORMED: Right TECHNIQUE: The lower extremity deep venous system is examined utilizing real time linear array sonog suzy with graded compression, doppler sonography and color-flow sonography. VESSELS IMAGED: External Iliac Vein (EIV) Common Femoral Vein Deep Femoral Vein Greater Saphenous Vein * Femoral Vein Popliteal Vein Small Saphenous Vein * Proximal Calf Veins (* superficial vessels) Grayscale, color doppler, spectral doppler imaging performed of the deep veins of the right lower ext remity. There is normal flow, compressibility, vascular waveforms. Right Leg: Negative for DVT, possible Anderson's Cyst= 6.0 x 2.3 x 3.7 cm Results called to Martita at 's office at time of exam IMPRESSION: 1. No sonographic evidence of deep venous thrombosis within the right lower extremity. 2. Probable Anderson's cyst/popliteal fossa cyst measuring up to 6 cm.
== END | disposition home or self-care (01) ==
LOC: RADUSWWP 15:34
PROVIDERS: ATTEND Orthopaedic Surgery
DX: R22.41 Localized swelling, mass and lump, right lower limb (principal)

== ENCOUNTER 2019-05-23 05:57 | Inpatient (IN) | payer BC, MEDICARE ==
[2019-05-22 08:47] VITALS: BMI 39.7
--- NOTE | 2019-05-22 22:29 | HP ---
HISTORY AND PHYSICAL DATE OF SURGERY: 05/23/2019 Jez Cifuentes is a 59-year-old patient who recently underwent right total knee arthroplasty. He was seen in the office with difficulty with extending his right knee. He was found to have a probable infective process going on with probable rupture of the medial retinaculum. I discussed options. I recommended trying to save/salvage the arthroplasty with irrigation, debridement, polyethylene exchange, medial retinacular repair and implantation of antibiotic beads. The procedure, risks, complications, benefits and recovery were thoroughly discussed with Mr. Cifuentes and his . They understood. They also understood possibility of recurrent infection needing extraction of the prosthesis. Consent regarding the procedure was obtained. PAST MEDICAL HISTORY: 1. Hypertension. 2. Hyperlipidemia. 3. Hypothyroidism. 4. Emphysema. PAST SURGICAL HISTORY: 1. Bilateral total knee arthroplasty. 2. Lumbar spine surgery. 3. Herniorrhaphy. DAILY MEDICATIONS: 1. Lisinopril. 2. Metformin. 3. Synthroid. ALLERGIES: NONE. SOCIAL HISTORY: He smokes 2 packs of cigarettes daily. PHYSICAL EVALUATION OF THE RIGHT KNEE: There is obvious erythema anteriorly. His range of motion is -70 to 110. There is a defect along the medial retinaculum. Homans and Christiano are negative. Distal neurovascular exam is intact. RADIOGRAPHS: Radiographs of the right knee revealed lateral patellar subluxation; otherwise appearing stable total knee arthroplasty. IMPRESSION: 1. 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 2. Asthma. 3. Hypertension. 4. Afs-swxlubb-unryhdtyp diabetes. 5. Tobacco use. PLAN: Right knee arthrotomy with irrigation and debridement, polyethylene exchange and antibiotic bead placement. MMODL / IJN: [id number] /
[~2019-05-23 05:57] MED LIST changes: -ACETAMINOPHEN TAB 500 MG TAB PO ONE; +DEXAMETHASONE SOD PHOSPHATE 10 MG/ML 1 ML VIAL IV ONE; +LACTATED RINGERS 1,000 ML IV SCH; -MELOXICAM 7.5 MG TAB PO ONE; +MIDAZOLAM 2 MG/2 ML VIAL IV PRN; +ONDANSETRON 4 MG/2 ML VIAL IVP ONE; +SCOPOLAMINE 1.5MG/72HR PATCH TRANSDERM ONE; -TRANEXAMIC ACID 1,000 MG in SODIUM CHLORIDE 0.9% 100 ML IVPB ONE; +VANCOMYCIN 1,750 MG in SODIUM CHLORIDE 0.9% 500 ML 500 ML IVPB STA; +VANCOMYCIN IV PER PHARMACY 1 EACH MISC MISCELLANE ONE
[2019-05-23] MEDS ORDERED: LIDOCAINE 1% 20 ML VIAL (10MG/ML) FOR IV START INTRADERMA ONE (06:20)
[2019-05-23 06:44] LABS: Glucose,Whole Blood 142 mg/dL (75-99)
[2019-05-23] MEDS ORDERED: fentaNYL (PF) 50 MCG/ML 2 ML AMP ONE (06:58)
[2019-05-23] MEDS ORDERED: ALBUTEROL INHALER 60 PUFF/8 GM INHALER INHALATION ONE (06:58)
[2019-05-23] MEDS ORDERED: GLYCOPYRROLATE 0.2 MG/ML 2 ML VIAL ONE (06:58)
[2019-05-23] MEDS ORDERED: LIDOCAINE 1% INJ 10MG/ML (20 ML MDV) ONE (06:58)
[2019-05-23] MEDS ORDERED: MIDAZOLAM 2 MG/2 ML VIAL ONE (06:58)
[2019-05-23] MEDS ORDERED: PROPOFOL 10 MG/ML 20 ML VIAL IV ONE (06:58)
[2019-05-23] MEDS ORDERED: ROCURONIUM BROMIDE 10 MG/ML 10 ML VIAL IV ONE (06:58)
[2019-05-23] MEDS ORDERED: SUCCINYLCHOLINE CHLORIDE 100 MG/5 ML SYR IV ONE (06:58)
[2019-05-23] MEDS ORDERED: PHENYLEPHRINE-0.9% NACL SYG 1 MG/10 ML SYRINGE ONE (06:58)
[2019-05-23] MEDS ORDERED: NEOSTIGMINE 1 MG/ML 10 ML VIAL ONE (06:58)
[2019-05-23] MEDS ORDERED: TOBRAMYCIN SULFATE 1.2 GM VIAL MISCELLANE ONE ×2 (07:15→07:34)
[2019-05-23] MEDS ORDERED: VANCOMYCIN MISCELLANE ONE (07:15)
[2019-05-23] MEDS ORDERED: VANCOMYCIN 1,000 MG VIAL MISCELLANE ONE (07:33)
[2019-05-23] MEDS ORDERED: LACTATED RINGERS 1,000 ML IV ONE (08:22)
[2019-05-23] MEDS ORDERED: traMADol 50 MG TAB PO PRN (08:41)
[2019-05-23] MEDS ORDERED: HYDROcodone/APAP 7.5-325MG 1 EACH TAB PO PRN (08:41)
[2019-05-23] MEDS ORDERED: ONDANSETRON 4 MG/2 ML VIAL IVP PRN (08:41)
[2019-05-23] MEDS ORDERED: HYDROmorphone 1 MG/ML 1 ML SYRINGE IVP PRN (08:41)
[2019-05-23] MEDS ORDERED: HYDROmorphone 0.5 MG/0.5 ML SYRINGE IVP PRN (08:41)
[2019-05-23] MEDS ORDERED: MAGNESIUM HYDROXIDE 2,400 MG/10 ML CUP PO PRN (08:41)
[2019-05-23] MEDS ORDERED: ACETAMINOPHEN TAB 325 MG TAB PO PRN (08:41)
[2019-05-23] MEDS ORDERED: NALOXONE 0.4 MG/ML 1 ML VIAL IV PRN (08:41)
[2019-05-23] MEDS: HYDROmorphone 0.5 MG/0.5 ML SYRINGE IVP PRN ×2 (08:46→08:52)
[2019-05-23] MEDS ORDERED: HYDROmorphone 0.5 MG/0.5 ML SYRINGE IVP ONE (08:58)
--- NOTE | 2019-05-23 08:59 | P.OP ---
Date of Procedure: 05/23/19 Preoperative Diagnosis: Infected right total knee arthroplasty Postoperative Diagnosis: 1. Infected right total knee arthroplasty 2. Right knee quadriceps/medial retinacular tear Procedure(s) Performed: 1. Right knee arthrotomy with irrigation, polyethylene exchange and antibiotic bead placement 2. Repair right quadriceps tendon/medial retinacular tear Implants: Microport size 6 right 14 mm CS polyethylene tibial insert Anesthesia: RICHIE Surgeon: Milind Patton Private Equity Associate #1: Alcides Arguelles Estimated Blood Loss (ml): 25 Pathology: none sent Condition: stable Disposition: PACU Indications for Procedure: 59-year-old patient was seen with a probe all infected right total knee arthroplasty. He also had what appeared to be a medial retinacular / quadriceps tendon tear. I recommended arthrotomy, irrigation, polyethylene exchange, antibiotic bead placement and repair of his quadriceps/medial retinacular tear. He was agreeable and consent was obtained. Operative Findings: see description of procedure Description of Procedure: Patient was taken to the operative suite. Patient underwent a general anesthetic by the department of anesthesia. A well-padded tourniquet placed proximal right lower extremity. Right lower extremity was prepped and draped in the normal sterile orthopedic fashion. The extremity was elevated and the tourniquet was insufflated to 300. An incision was made through the previous cicatrix or upper through skin. This was at the subcutaneous area we noted a significant amount of serosanguineous fluid. Cultures were obtained of the fluid. After evacuating the remainder of fluid we noted a complete disruption of the medial retinaculum and quadriceps tendon. There was no purulence. I debrided out some blood clot. At this point I extracted the polyethylene tibial insert. I obtained deep cultures posteriorly. I now initiated IV antibiotics. I now irrigated the wound out copiously with 3000 mL normal saline solution. I now placed Irresept in the wound and set for several minutes. I now irrigated the wound out with an additional 3000 mL of normal sitting solution via pulse lavage irrigation. I now placed vancomycin/tobramycin antibiotic beads throughout the posterior part of the joint. We now inserted a new appropriate size polyethylene tibial insert. I now placed remaining antibiotic beads throughout the knee. I now repaired the quadriceps tendon with #3 Vicryl. I now repaired the medial retinaculum with #3 Vicryl. We irrigated the wound out again. The subcu soft tissues were repaired in layers with 2-0 Vicryl. The skin is proximal skin anna. Sterile dressings were applied. The tourniquet was released. Sterile Gregorio bandage was applied. The knee was placed into a knee immobilizer. The patient was awakened and transferred to a bed and recovery stable condition. Torrey GARNER assisted with the procedure.
[2019-05-23] MEDS: HYDROcodone/APAP 7.5-325MG 1 EACH TAB PO PRN ×3 (10:12→23:17)
[2019-05-23] MEDS ORDERED: IPRATROPIUM-ALBUTEROL 3 ML NEB INHALATION PRN (10:22)
[2019-05-23 10:49] LABS: African American GFR (CKD) >90 (>60 ml/min/1.73 sqM); Anion Gap 6 mmol/L; Blood Urea Nitrogen 16 mg/dL (9-20); Calcium 9.2 mg/dL (8.4-10.2); Carbon Dioxide 34 mmol/L (22-30); Chloride 88 mmol/L (98-107); Glucose 143 mg/dL (74-99); Non-African American GFR(CKD) >90 (>60 ml/min/1.73 sqM); Potassium 5.5 mmol/L (3.5-5.1); Sodium 128 mmol/L (137-145)
[2019-05-23 11:07] LABS: Basophils # (A) 0.1 k/uL (0-0.2); Basophils % (A) 1 %; Eosinophils % (A) 1 %; HCT 41.5 % (39.0-53.0); HGB 13.5 gm/dL (13.0-17.5); Lymphocytes # (A) 0.6 k/uL (1.0-4.8); Lymphocytes % (A) 9 %; MCH 31.6 pg (25.0-35.0); MCHC 32.6 g/dL (31.0-37.0); MCV 97.1 fL (80.0-100.0); Monocytes # (A) 0.2 k/uL (0-1.0); Monocytes % (A) 2 %; Neutrophils # (A) 6.3 k/uL (1.3-7.7); Neutrophils % (A) 87 %; Platelet Count 352 k/uL (150-450); RBC 4.28 m/uL (4.30-5.90); RDW 13.2 % (11.5-15.5); WBC 7.2 k/uL (3.8-10.6)
[2019-05-23 11:23] LABS: C Reactive Protein 8.7 mg/L (<10.0)
[2019-05-23] MEDS: AZITHROMYCIN 500 MG TAB PO SCH (11:30)
[2019-05-23 11:37] LABS: Glucose,Whole Blood 180 mg/dL (75-99)
[2019-05-23] MEDS: INSULIN ASPART (NovoLOG) 100 UNIT/ML VIAL SQ SCH ×3 (12:04→20:21)
[2019-05-23] MEDS ORDERED: SODIUM POLYSTYRENE SULFONATE 15 GM/60 ML BOTTLE PO STA (12:48)
--- NOTE | 2019-05-23 12:57 | P.CONS ---
History of Present Illness - Reason for Consult infection in the knee - History of Present Illness 9-year-old admitted the for right total knee arthroplasty patient does have quadriceps tear which was repaired. Patient the denied any fever chills nausea vomiting patient is complaining of cough with the whitish sputum production is wheezing on exam patient still smokes about a pack of cigarettes per day patient uses 3 L of onset at home presently on 3 L wheezing on exam. Patient has multiple other medical problems and does take lisinopril and chlorthalidone patient is hyponatremic and hyperkalemic because of which I'm holding both chlorthalidone and lisinopril. IV fluids will be increased 100 mL per hour Review of Systems REVIEW OF SYSTEMS: CONSTITUTIONAL: No fever, no malaise, no fatigue. HEENT: No recent visual problems or hearing problems. Denied any sore throat. CARDIOVASCULAR: No chest pain, orthopnea, PND, no palpitations, no syncope. PULMONARY: No shortness of breath, GASTROINTESTINAL: No diarrhea, no nausea, no vomiting, no abdominal pain. NEUROLOGICAL: No headaches, no weakness, no numbness. HEMATOLOGICAL: Denies any bleeding or petechiae. GENITOURINARY: Denies any burning micturition, frequency, or urgency. MUSCULOSKELETAL/RHEUMATOLOGICAL: Denies any joint pain, swelling, or any muscle pain. ENDOCRINE: Denies any polyuria or polydipsia. The rest of the 14-point review of systems is negative. Past Medical History Past Medical History: Coronary Artery Disease (CAD), Heart Failure, COPD, Mariya betes Mellitus, Deep Vein Thrombosis (DVT), Hearing Disorder / Deafness, Hyperlipidemia, Hypertension, Osteoarthritis (OA), Sleep Apnea/CPAP/BIPAP, Thyroid Disorder Additional Past Medical History / Comment(s): CPAP; remote history of DVT as a teen; possible recent pneumonia, finishing course of antibiotic, Lt ear has sl hearing loss. History of Any Multi-Drug Resistant Organisms: None Reported Year Discovered:: None MDRO Source:: None Past Surgical History: Adenoidectomy, Back Surgery, Heart Catheterization With Stent, Hernia Repair, Orthopedic Surgery, Tonsillectomy Additional Past Surgical History / Comment(s): lumbar fusion, repair hydrocele, arthroscopy right knee, hand surg, anjali total knee replacement Past Anesthesia/Blood Transfusion Reactions: No Reported Reaction Date of Last Stent Placement:: 2007 Past Psychological History: No Psychological Hx Reported Smoking Status: Current every day smoker Past Alcohol Use History: Rare Additional Past Alcohol Use History / Comment(s): 2ppd since 1978 Past Drug Use History: None Reported - Past Family History Mother Family Medical History: No Reported History Medications and Allergies Home Medications Medication Instructions Recorded Confirmed Type Ipratropium-Albuterol Nebulize 3 ml INHALATION Q4-6H 01/03/18 05/22/19 History [Duoneb 0.5 mg-3 mg/3 ml Soln] Ipratropium/Albuterol Sulfate 1 - 2 puff INHALATION RT-QID PRN 01/03/18 05/22/19 History [Combivent Respimat Inhaler] Levothyroxine Sodium [Synthroid] 88 mcg PO DAILY 01/03/18 05/22/19 History Lisinopril [Zestril] 10 mg PO BID 01/03/18 05/22/19 History Pravastatin Sodium [Pravachol] 10 mg PO HS 01/03/18 05/22/19 History metFORMIN HCL [Glucophage] 500 mg PO QAM 01/03/18 05/22/19 History Sildenafil Citrate [Viagra] 50 mg PO ONCE PRN 03/27/19 05/22/19 History Aspirin [Adult Low Dose Aspirin EC] 81 mg PO BID #60 tablet. 04/03/19 05/22/19 Rx Chlorthalidone 25 mg PO QAM 05/22/19 05/22/19 History Docusate [Colace] 100 mg PO DAILY PRN 05/22/19 05/22/19 History Doxycycline [Vibramycin] 100 mg PO BID 05/22/19 05/22/19 History Allergies Allergy/AdvReac Type Severity Reaction Status Date / Time No Known Allergies Allergy Verified 05/23/19 06:09 Physical Exam Vitals: Vital Signs Temp Pulse Pulse Resp BP Pulse Ox 05/23/19 09:31 88 24 129/64 94 L 05/23/19 09:16 83 18 135/74 98 05/23/19 09:00 73 133/71 98 05/23/19 08:40 97.9 F 94 18 133/74 05/23/19 06:24 98.2 F 91 16 142/73 90 L Intake and Output 05/22/19 05/23/19 05/23/19 22:59 06:59 14:59 Intake Total 100 2550 Output Total 25 Balance 100 2525 Intake: IV 100 2550 Output: Estimated Blood Loss 25 Other: Weight 113.1 kg 113.1 kg PHYSICAL EXAMINATION: GENERAL: The patient is alert and oriented x3, not in any acute distress. Well developed, well nourished. HEENT: Pupils are round and equally reacting to light. EOMI. No scleral icterus. No conjunctival pallor. Normocephalic, atraumatic. No pharyngeal erythema. No thyromegaly. CARDIOVASCULAR: S1 and S2 present. No murmurs, rubs, or gallops. PULMONARY: Chest is clear to auscultation, no wheezing or crackles. ABDOMEN: Soft, nontender, nondistended, normoactive bowel sounds. No palpable organomegaly. MUSCULOSKELETAL: No joint swelling or deformity. EXTREMITIES: No cyanosis, clubbing, or pedal edema. was unable to examine the right knee as that is packed post surgically NEUROLOGICAL: Gross neurological examination did not reveal any focal deficits. SKIN: No rashes. Results CBC & Chem 7: 05/23/19 10:17 05/23/19 10:17 Labs: Abnormal Lab Results - Last 24 Hours (Table) 05/23/19 05/23/19 05/23/19 Range/Units 06:25 10:17 10:17 RBC 4.28 L (4.30-5.90) m/uL Lymphocytes # 0.6 L (1.0-4.8) k/uL Sodium 128 L (137-145) mmol/L Potassium 5.5 H (3.5-5.1) mmol/L Chloride 88 L (98-107) mmol/L Carbon Dioxide 34 H (22-30) mmol/L Creatinine 0.54 L (0.66-1.25) mg/dL Glucose 143 H (74-99) mg/dL POC Glucose (mg/dL) 142 H (75-99) mg/dL 05/23/19 Range/Units 11:36 RBC (4.30-5.90) m/uL Lymphocytes # (1.0-4.8) k/uL Sodium (137-145) mmol/L Potassium (3.5-5.1) mmol/L Chloride (98-107) mmol/L Carbon Dioxide (22-30) mmol/L Creatinine (0.66-1.25) mg/dL Glucose (74-99) mg/dL POC Glucose (mg/dL) 180 H (75-99) mg/dL Assessment and Plan Plan: -hyponatremia secondary to chlorthalidone which will be discontinued and patient was startedon IV fluids and will be continued. Basic metabolic profile tomorrow -Hyperkalemia secondary to lisinopril which will be held temporarily can be started at a low dose most probably tomorrow for now I'll hold it and the IV fluid should help with the hyperkalemia -COPD with minimal exacerbation patient will be started on inhaled steroids inhalational treatments. Patient doesn't improve he may need to start him on systemic steroids patient will be started on azithromycin as well -Right knee tenderness fracture with possible infection for which patient on vancomycin infectious disease was consulted for this -Type 2 diabetes mellitus: metformin can be continued along with sliding scale insulin. -hypothyroidism DVT prophylaxis as per primary service
[2019-05-23 13:05] LABS: Erythrocyte Sedimentation Rate 8 mm/hr (0-15)
[2019-05-23] MEDS: IPRATROPIUM-ALBUTEROL 3 ML NEB INHALATION SCH ×3 (13:33→20:27)
[2019-05-23] MEDS: SODIUM CHLORIDE 0.9% 1,000 ML IV SCH (13:36)
[2019-05-23] MEDS ORDERED: VANCOMYCIN IV PER PHARMACY 1 EACH MISC MISCELLANE SCH (15:00)
--- NOTE | 2019-05-23 15:07 | XR ---
EXAMINATION TYPE: XR knee limited RT DATE OF EXAM: 05/23/2019 CLINICAL HISTORY: Right knee pain and arthritis status post total knee replacement. TECHNIQUE: Portable AP and crosstable lateral views of the right knee are obtained immediately posto peratively. COMPARISON: None FINDINGS: Metallic hardware from total right knee arthroplasty is seen and appears satisfactory in a lignment and position. There is evidence of recent surgery with surgical antibiotic beads and subcut aneous emphysema with overlying vertical skin anna. IMPRESSION: ANTIBIOTIC BEADS AND METALLIC HARDWARE FROM TOTAL RIGHT KNEE ARTHROPLASTY IS SATISFACTORY IN ALIGNMENT.
[2019-05-23] MEDS: VANCOMYCIN 1,750 MG in SODIUM CHLORIDE 0.9% 500 ML 500 ML IVPB SCH ×2 (15:36→23:15)
[2019-05-23 16:58] LABS: Glucose,Whole Blood 135 mg/dL (75-99)
[2019-05-23 20:19] LABS: Glucose,Whole Blood 152 mg/dL (75-99)
[2019-05-23] MEDS: PRAVASTATIN SODIUM 20 MG TAB PO SCH (20:21)
[2019-05-23] MEDS: SENNOSIDES-DOCUSATE SODIUM 1 EACH TAB PO SCH (20:21)
[2019-05-23] MEDS: ENOXAPARIN 30 MG/0.3 ML SYRINGE SQ SCH (20:22)
[2019-05-23] MEDS: BUDESONIDE 0.5 MG/2 ML NEBU INHALATION SCH (20:27)
[2019-05-23] MEDS ORDERED: LISINOPRIL 10 MG TAB PO SCH (21:00)
--- NOTE | 2019-05-23 22:46 | P.CONS ---
History of Present Illness - Reason for Consult Consult date: 05/23/19 right knee infection Requesting physician: Milind Patton - Chief Complaint right knee pain and deformity x few days - History of Present Illness Patient is 59-year male who is a status post right knee arthroplasty done in March 2019 2 days before the Thanksgiving, patient mentioning he was icing his leg and knee because of the pain and subsequently develop erythematous rash to the right thigh, patient subsequently did okay however few days ago the pain is when he stands up patient kneecaps can give out and he did have a deformity there was some swelling but no significant redness or any drainage patient was subsequently evaluated by his surgeon with concern for possible infected prosthesis patient was taken to the OR patient noticed to have right knee quadricep medial retinacular tear the patient status post repair of this tear he did have a I&D polyethylene exchange antibiotic bead placement culture has been obtained the patient was started on vancomycin infectious disease has been consulted for further recommendation about antibiotic. Patient currently denies having high-grade fever or chills, patient has been complaining of pain to the right knee and leg area more of a dull aching to sharp pains about 7-8 out of 10 and no radiation patient feeling slight nausea but no vomiting denies any abdominal pain no diarrhea. Review of Systems CONSTITUTIONAL: Positive for weakness denies high-grade fever. EYES: No complaint. ENT: No complaint. RESPIRATORY: No complaint. CARDIOVASCULAR: No complaint. GENITOURINARY: No complaint. GASTROINTESTINAL: No complaint. MUSCULOSKELETAL: As per history of present illness. INTEGUMENTARY: As per history of present illness. PSYCHOLOGIC: No complaint. ENDOCRINE: No complaint. NEUROLOGIC: No complaint. Past Medical History Past Medical History: Coronary Artery Disease (CAD), Heart Failure, COPD, Diabetes Mellitus, Deep Vein Thrombosis (DVT), Hearing Disorder / Deafness, Hyperlipidemia, Hypertension, Osteoarthritis (OA), Sleep Apnea/CPAP/BIPAP, Thyroid Disorder Additional Past Medical History / Comment(s): CPAP; remote history of DVT as a teen; possible recent pneumonia, finishing course of antibiotic, Lt ear has sl hearing loss. History of Any Multi-Drug Resistant Organisms: None Reported Year Discovered:: None MDRO Source:: None Past Surgical History: Adenoidectomy, Back Surgery, Heart Catheterization With Stent, Hernia Repair, Orthopedic Surgery, Tonsillectomy Additional Past Surgical History / Comment(s): lumbar fusion, repair hydrocele, arthroscopy right knee, hand surg, anjali total knee replacement Past Anesthesia/Blood Transfusion Reactions: No Reported Reaction Date of Last Stent Placement:: 2007 Past Psychological History: No Psychological Hx Reported Smoking Status: Current every day smoker Past Alcohol Use History: Rare Additional Past Alcohol Use History / Comment(s): 2ppd since 1978 Past Drug Use History: None Reported - Past Family History Mother Family Medical History: No Reported History Medications and Allergies Home Medications Medication Instructions Recorded Confirmed Type Ipratropium-Albuterol Nebulize 3 ml INHALATION Q4-6H 01/03/18 05/22/19 History [Duoneb 0.5 mg-3 mg/3 ml Soln] Ipratropium/Albuterol Sulfate 1 - 2 puff INHALATION RT-QID PRN 01/03/18 05/22/19 History [Combivent Respimat Inhaler] Levothyroxine Sodium [Synthroid] 88 mcg PO DAILY 01/03/18 05/22/19 History Lisinopril [Zestril] 10 mg PO BID 01/03/18 05/22/19 History Pravastatin Sodium [Pravachol] 10 mg PO HS 01/03/18 05/22/19 History metFORMIN HCL [Glucophage] 500 mg PO QAM 01/03/18 05/22/19 History Sildenafil Citrate [Viagra] 50 mg PO ONCE PRN 03/27/19 05/22/19 History Aspirin [Adult Low Dose Aspirin EC] 81 mg PO BID #60 tablet. 04/03/19 05/22/19 Rx Chlorthalidone 25 mg PO QAM 05/22/19 05/22/19 History Docusate [Colace] 100 mg PO DAILY PRN 05/22/19 05/22/19 History Doxycycline [Vibramycin] 100 mg PO BID 05/22/19 05/22/19 History Allergies Allergy/AdvReac Type Severity Reaction Status Date / Time No Known Allergies Allergy Verified 05/23/19 06:09 Physical Exam Vitals: Vital Signs Temp Pulse Pulse Resp BP Pulse Ox 05/23/19 09:31 88 24 129/64 94 L 05/23/19 09:16 83 18 135/74 98 05/23/19 09:00 73 133/71 98 05/23/19 08:40 97.9 F 94 18 133/74 05/23/19 06:24 98.2 F 91 16 142/73 90 L Intake and Output 05/22/19 05/23/19 05/23/19 22:59 06:59 14:59 Intake Total 100 2550 Output Total 25 Balance 100 2525 Intake: IV 100 2550 Output: Estimated Blood Loss 25 Other: Weight 113.1 kg 113.1 kg GENERAL DESCRIPTION: Middle-aged male lying in bed, no distress. No tachypnea or accessory muscle of respiration use. HEENT: Shows Pallor , no scleral icterus. Oral mucous membrane is dry. NECK: Trachea central, no thyromegaly. LUNGS: Unlabored breathing. Clear to auscultation anteriorly. No wheeze or crackle. HEART: S1, S2, regular rate and rhythm. ABDOMEN: Soft, no tenderness , guarding or rigidity EXTREMITIES: Right knee is currently dressed up postoperatively sKIN: No rash, no masses palpable. NEUROLOGICAL: The patient is awake, alert, oriented x3, mood and affect normal. Results CBC & Chem 7: 05/23/19 10:17 05/23/19 10:17 Labs: Abnormal Lab Results - Last 24 Hours (Table) 05/23/19 Range/Units 06:25 POC Glucose (mg/dL) 142 H (75-99) mg/dL Assessment and Plan Assessment: 1-patient presenting to the hospital with deformity of the right knee in this patient who did have her right knee replacement March 2019 without any history of trauma did have a rupture of the quadriceps tendon tear that has to be repaired along with the polyethylene exchange operative report did not mention significant purulent secretion and the deep culture has been obtained which are currently pending underlying infection possibly from gram-positive skin katey not entirely excluded (1) Infection and inflammatory reaction due to internal right knee prosthesis, subsequent encounter Current Visit: Yes Status: Acute Code(s): T84.53XD - INFECT/INFLM REACTION DUE TO INTERNAL R KNEE PROSTH, SUBS SNOMED Code(s): 29355760 (2) Infection of right knee Current Visit: No Status: Acute Code(s): M00.9 - PYOGENIC ARTHRITIS, UNSPECIFIED SNOMED Code(s): 804700581 Plan: 1-blood cultures x2 to make sure patient is not bacteremic 2-we will obtain baseline sed rate and CRP 3-vancomycin pharmacy to dose her with a target trough of 15 while watching her kidney function and Vanco trough closely. 4-patient will likely need outpatient IV to by therapy for decreased pleasure we will check his coverage We will follow on clinical condition and cultures to further adjust medication if needed Thank you for this consultation we will follow the patient along with you Time with Patient: Greater than 30
[2019-05-24] MEDS: SODIUM CHLORIDE 0.9% 1,000 ML IV SCH ×3 (00:52→21:07)
[2019-05-24] MEDS: LEVOTHYROXINE 88 MCG TAB PO SCH (05:11)
[2019-05-24 06:53] LABS: Glucose,Whole Blood 115 mg/dL (75-99)
[2019-05-24 07:11] LABS: Basophils # (A) 0.1 k/uL (0-0.2); Basophils % (A) 1 %; Eosinophils # (A) 0.1 k/uL (0-0.7); Eosinophils % (A) 1 %; HCT 39.3 % (39.0-53.0); Lymphocytes # (A) 1.5 k/uL (1.0-4.8); Lymphocytes % (A) 19 %; MCH 31.9 pg (25.0-35.0); MCHC 33.1 g/dL (31.0-37.0); MCV 96.2 fL (80.0-100.0); Mean Platelet Volume 6.8; Monocytes # (A) 0.6 k/uL (0-1.0); Monocytes % (A) 8 %; Neutrophils # (A) 5.7 k/uL (1.3-7.7); Neutrophils % (A) 70 %; Platelet Count 324 k/uL (150-450); RBC 4.08 m/uL (4.30-5.90); RDW 13.3 % (11.5-15.5); WBC 8.2 k/uL (3.8-10.6)
[2019-05-24] MEDS: INSULIN ASPART (NovoLOG) 100 UNIT/ML VIAL SQ SCH ×4 (07:13→20:59)
[2019-05-24] MEDS: HYDROcodone/APAP 7.5-325MG 1 EACH TAB PO PRN ×3 (07:18→21:02)
[2019-05-24] MEDS: VANCOMYCIN 1,750 MG in SODIUM CHLORIDE 0.9% 500 ML 500 ML IVPB SCH ×3 (07:19→23:22)
[2019-05-24] MEDS: AZITHROMYCIN 500 MG TAB PO SCH (07:19)
[2019-05-24] MEDS: ENOXAPARIN 30 MG/0.3 ML SYRINGE SQ SCH ×2 (07:19→21:05)
[2019-05-24 07:25] LABS: African American GFR (CKD) >90 (>60 ml/min/1.73 sqM); Anion Gap 8 mmol/L; Blood Urea Nitrogen 13 mg/dL (9-20); Calcium 9.4 mg/dL (8.4-10.2); Carbon Dioxide 34 mmol/L (22-30); Chloride 89 mmol/L (98-107); Glucose 111 mg/dL (74-99); Non-African American GFR(CKD) >90 (>60 ml/min/1.73 sqM); Potassium 4.3 mmol/L (3.5-5.1); Sodium 131 mmol/L (137-145)
[2019-05-24] MEDS: IPRATROPIUM-ALBUTEROL 3 ML NEB INHALATION SCH ×5 (08:13→19:35)
[2019-05-24] MEDS: BUDESONIDE 0.5 MG/2 ML NEBU INHALATION SCH ×2 (08:13→19:35)
[2019-05-24] MEDS ORDERED: CHLORTHALIDONE 25 MG TAB PO SCH (09:00)
[2019-05-24 11:53] LABS: Glucose,Whole Blood 99 mg/dL (75-99)
--- NOTE | 2019-05-24 13:39 | P.PN ---
Subjective Progress Note Date: 05/24/19 Principal diagnosis: Status post right knee arthrotomy with irrigation, polyethylene liner exchange and antibiotic bead placement, quadriceps tendon and medial retinacular repair Patient evaluated at bedside today, he is resting in his chair. He is utilizing a knee immobilizer. He notes improvement in the swelling and discomfort in his knee. Denies any chest pain or shortness of breath at this time. Objective - Vital Signs Vital signs: Vital Signs Temp 98.1 F 05/24/19 07:00 Pulse 88 05/24/19 11:52 Resp 15 05/24/19 07:15 BP 124/81 05/24/19 07:00 Pulse Ox 90 L 05/24/19 07:00 Intake & Output 05/23/19 05/24/19 05/24/19 18:59 06:59 18:59 Intake Total 3442 1100 Output Total 325 3400 150 Balance 3117 -2300 -150 Weight 113.1 kg Intake: IV 2550 Intake, IV Titration 1100 Amount Sodium Chloride 0.9% 1, 600 000 ml @ 100 mls/hr IV . Q10H [facility] Rx#:[id number] Vancomycin 1,750 mg In 500 Sodium Chloride 0.9% 500 ml 500 ml @ 167 mls/hr IVPB Q8HR [facility] Rx#: [id number] Oral 892 Output: Urine 300 3400 150 Estimated Blood Loss 25 Other: Voiding Method Urinal Urinal - Exam Right lower extremity: Postoperative bandage was removed. Bern are in good position and condition, no active drainage. Erythema that was present over the knee is improved. Calf is soft, no tenderness with palpation. Distal neurovascular exam is intact. - Labs CBC & Chem 7: 05/24/19 06:16 05/24/19 06:16 Labs: Abnormal Lab Results - Last 24 Hours (Table) 05/23/19 05/23/19 05/24/19 Range/Units 16:55 20:18 06:16 RBC 4.08 L (4.30-5.90) m/uL Sodium (137-145) mmol/L Chloride (98-107) mmol/L Carbon Dioxide (22-30) mmol/L Creatinine (0.66-1.25) mg/dL Glucose (74-99) mg/dL POC Glucose (mg/dL) 135 H 152 H (75-99) mg/dL 05/24/19 05/24/19 Range/Units 06:16 06:51 RBC (4.30-5.90) m/uL Sodium 131 L (137-145) mmol/L Chloride 89 L (98-107) mmol/L Carbon Dioxide 34 H (22-30) mmol/L Creatinine 0.59 L (0.66-1.25) mg/dL Glucose 111 H (74-99) mg/dL POC Glucose (mg/dL) 115 H (75-99) mg/dL Microbiology - Last 24 Hours (Table) 05/23/19 10:43 Blood Culture - Preliminary Blood No Growth after 24 hours 05/23/19 10:43 Blood Culture - Preliminary Blood No Growth after 24 hours 05/23/19 07:34 Gram Stain - Preliminary Knee - Right Wound Culture - Preliminary 05/23/19 07:34 Gram Stain - Preliminary Knee - Right Wound Culture - Preliminary 05/23/19 07:34 Anaerobic Culture - Preliminary Knee - Right 05/23/19 07:34 Anaerobic Culture - Preliminary Knee - Right Assessment and Plan Plan: Assessment: 1. Postop day #1 status post right knee arthrotomy with irrigation, polyethylene liner exchange and antibiotic bead placement, quadriceps tendon and medial retinacular repair 2. Right knee periprosthetic infection 3. Other medical comorbidities Plan: Daily dressing changes, ice and elevate 28/11 Utilize knee immobilizer when ambulating, toe touch weightbearing with walker Keep knee in extension at all times Await culture and sensitivity results Pain control Other medical secretary teacher recommendations GI and DVT prophylaxis, continue current medication Anticipate patient will be in hospital through weekend with hopeful discharge home on Monday Time with Patient: Less than 30
--- NOTE | 2019-05-24 14:27 | P.PN ---
Subjective 59-year-old the mail admitted for irrigation of the right knee for possibility of infection in the right knee in the tendinous tear which was repaired. Patient on vancomycin. Patient's says his redness significantly improved regarding chance to look at the knee which has some redness and inflammation which appears to be mostly seconded to surgery. Patient wheezing improved today, hyponatremia improved symptoms sodium is 121 today with IV normal saline blood pressure fairly stable. Hyperkalemia resolved Constitutional: Denied any fatigue denied any fever. Cardio vascular: denied any chest pain, palpitations Gastrointestinal denied any nausea vomiting Pulmonary: Patient is able to cough up now shortness of breath is better Neurologic denied any new focal deficits All inpatient medications were reviewed and appropriate changes in these medications as dictated in the interval history and assessment and plan. Objective - Vital Signs Vital signs: Vital Signs Temp 98.1 F 05/24/19 07:00 Pulse 88 05/24/19 11:52 Resp 15 05/24/19 07:15 BP 124/81 05/24/19 07:00 Pulse Ox 90 L 05/24/19 07:00 Intake & Output 05/23/19 05/24/19 05/24/19 18:59 06:59 18:59 Intake Total 3442 1100 Output Total 325 3400 150 Balance 3117 -2300 -150 Weight 113.1 kg Intake: IV 2550 Intake, IV Titration 1100 Amount Sodium Chloride 0.9% 1, 600 000 ml @ 100 mls/hr IV . Q10H [facility] Rx#:[id number] Vancomycin 1,750 mg In 500 Sodium Chloride 0.9% 500 ml 500 ml @ 167 mls/hr IVPB Q8HR [facility] Rx#: [id number] Oral 892 Output: Urine 300 3400 150 Estimated Blood Loss 25 Other: Voiding Method Urinal Urinal - Exam PHYSICAL EXAMINATION: GENERAL: The patient is alert and oriented x3, not in any acute distress. Well d eveloped, well nourished. HEENT: Pupils are round and equally reacting to light. EOMI. No scleral icterus. No conjunctival pallor. Normocephalic, atraumatic. No pharyngeal erythema. No thyromegaly. CARDIOVASCULAR: S1 and S2 present. No murmurs, rubs, or gallops. PULMONARY: Patient has significant wheezing bilaterally with rhonchi bilaterally ABDOMEN: Soft, nontender, nondistended, normoactive bowel sounds. No palpable organomegaly. MUSCULOSKELETAL: No joint swelling or deformity. EXTREMITIES: No cyanosis, clubbing, or pedal edema. was unable to examine the right knee as that is packed post surgically NEUROLOGICAL: Gross neurological examination did not reveal any focal deficits. SKIN: Redness around the surgical site area without any significant local is of temperature - Labs CBC & Chem 7: 05/24/19 06:16 05/24/19 06:16 Labs: Abnormal Lab Results - Last 24 Hours (Table) 05/23/19 05/23/19 05/24/19 Range/Units 16:55 20:18 06:16 RBC 4.08 L (4.30-5.90) m/uL Sodium (137-145) mmol/L Chloride (98-107) mmol/L Carbon Dioxide (22-30) mmol/L Creatinine (0.66-1.25) mg/dL Glucose (74-99) mg/dL POC Glucose (mg/dL) 135 H 152 H (75-99) mg/dL 05/24/19 05/24/19 Range/Units 06:16 06:51 RBC (4.30-5.90) m/uL Sodium 131 L (137-145) mmol/L Chloride 89 L (98-107) mmol/L Carbon Dioxide 34 H (22-30) mmol/L Creatinine 0.59 L (0.66-1.25) mg/dL Glucose 111 H (74-99) mg/dL POC Glucose (mg/dL) 115 H (75-99) mg/dL Microbiology - Last 24 Hours (Table) 05/23/19 10:43 Blood Culture - Preliminary Blood No Growth after 24 hours 05/23/19 10:43 Blood Culture - Preliminary Blood No Growth after 24 hours 05/23/19 07:34 Gram Stain - Preliminary Knee - Right Wound Culture - Preliminary 05/23/19 07:34 Gram Stain - Preliminary Knee - Right Wound Culture - Preliminary 05/23/19 07:34 Anaerobic Culture - Preliminary Knee - Right 05/23/19 07:34 Anaerobic Culture - Preliminary Knee - Right Assessment and Plan Plan: -hyponatremia improving now continue to hold off on chlorthalidone continue with IV fluids. -Hyperkalemia secondary to lisinopril which is being held and the hyperkalemia resolved. Patient blood pressures fairly stable in spite of not continue chlorthalidone and lisinopril -COPD with minimal exacerbation patient will be started on inhaled steroids inhalational treatments. Patient doesn't improve he may need to start him on systemic steroids patient on azithromycin, will obtain a chest x-ray poss ibility of pneumonia is low -Right knee tenderness fracture with possible infection for which patient on vancomycin infectious disease was consulted for this -Type 2 diabetes mellitus: metformin can be continued along with sliding scale insulin. -hypothyroidism DVT prophylaxis as per primary service
[2019-05-24] MEDS ORDERED: LIDOCAINE 1% INJ 10MG/ML (20 ML MDV) SQ ONE (14:30)
--- NOTE | 2019-05-24 14:47 | IR ---
PICC LINE PLACEMENT: HISTORY: Infection requiring long-term antibiotic therapy PROCEDURE: Ultrasound and fluoroscopic guidance of PICC line placement. COMPLICATIONS: None ANESTHESIA: 1. 1% Lidocaine locally. FINDINGS/TECHNIQUE: The procedure was explained to the patient. The risks, complications, benefits and alternatives were discussed and any questions were answered. Informed consent was obtained. The patient was placed supine on the fluoroscopic table and prepped and draped in the usual sterile fash ion. Utilizing a 21 gauge needle and sonographic and fluoroscopic guidance, access in the right bas ilic vein was achieved and there is placement of a 0.018 guidewire. The vein is patent. A 4-F sheat h was placed over the guidewire. The guidewire and dilator were removed and a 4-F. PICC line was aristeo delaney through the sheath with the tip at the level of the SVC. The sheath was removed, the catheter wa s flushed and sutured into position. The patient was stable throughout the procedure and remained st able upon discharge from the Department of Radiology. The vein puncture was patent under ultrasound. A merrill scale image was obtained to document patency of the vein punctured. All elements of the maximal barrier technique were utilized. FLUOROSCOPY TIME: Neuro 0.1 minutes and one image submitted IMPRESSION: Successful PICC line placement under ultrasound and fluoroscopic guidance.
--- NOTE | 2019-05-24 15:37 | XR ---
EXAMINATION TYPE: XR chest 2V DATE OF EXAM: 05/24/2019 COMPARISON: 04/01/2019 HISTORY: Shortness of breath. TECHNIQUE: Frontal and lateral views of the chest are obtained. FINDINGS: There are linear bilateral lower lung opacities. These are seen on the prior of 04/01/2019 that have increased in the interim. Cardiomediastinal silhouette is enlarged but stable. Right-sided PICC line terminates the distal superior vena cava. IMPRESSION: Increasing linear opacities in the lower lungs, likely scarring and/or atelectasis.
[2019-05-24] MEDS ORDERED: IPRATROPIUM-ALBUTEROL 3 ML NEB INHALATION PRN (16:17)
[2019-05-24 16:41] LABS: Glucose,Whole Blood 101 mg/dL (75-99)
--- NOTE | 2019-05-24 17:11 | PN ---
PROGRESS NOTE DATE OF SERVICE: 05/24/2019 REASON FOR FOLLOWUP: Right knee septic arthritis. INTERVAL HISTORY: The patient is currently afebrile, has been breathing comfortably. The patient has been complaining of some sinus infection and cough but no sputum production. No nausea or vomiting. No abdominal pain. No diarrhea. The patient's pain to the right leg is currently controlled. PHYSICAL EXAMINATION: Blood pressure is 137/77 with a pulse of 79, temperature 98.7. He is 95% on room air. General description is a middle-aged male up in the bed in no distress. RESPIRATORY SYSTEM: Unlabored breathing. Clear to auscultation anteriorly. HEART: S1, S2. Regular rate and rhythm. ABDOMEN: Soft. No tenderness. Right knee is currently dressed up. No obvious drainage on the dressing. LABS: Cultures are currently pending. DIAGNOSTIC IMPRESSION AND PLAN: Patient admitted to hospital with right knee septic arthritis, status post debridement and antibiotic bead placement. Will wait for the culture to finalize to determine discharge antibiotics. He is currently covered with vancomycin. Monitor his kidney function closely. Continue with supportive care. MMODL / IJN: [id number] /
[2019-05-24 20:59] LABS: Glucose,Whole Blood 162 mg/dL (75-99)
[2019-05-24] MEDS: PRAVASTATIN SODIUM 20 MG TAB PO SCH (21:04)
[2019-05-24] MEDS: SENNOSIDES-DOCUSATE SODIUM 1 EACH TAB PO SCH (21:05)
[2019-05-24] MEDS: OXYMETAZOLINE 0.05% NASL SPRAY 1 SPRAY BOTTLE NASAL SCH (21:07)
[2019-05-25] MEDS: IPRATROPIUM-ALBUTEROL 3 ML NEB INHALATION SCH ×6 (00:33→20:38)
[2019-05-25] MEDS: LEVOTHYROXINE 88 MCG TAB PO SCH (05:46)
[2019-05-25] MEDS: SODIUM CHLORIDE 0.9% 1,000 ML IV SCH ×2 (05:47→07:56)
[2019-05-25 06:54] LABS: Glucose,Whole Blood 133 mg/dL (75-99)
[2019-05-25] MEDS ORDERED: VANCOMYCIN TROUGH DUE 1 EACH MISC MISCELLANE ONE (07:00)
[2019-05-25 07:25] LABS: African American GFR (CKD) >90 (>60 ml/min/1.73 sqM); Non-African American GFR(CKD) >90 (>60 ml/min/1.73 sqM)
[2019-05-25] MEDS: INSULIN ASPART (NovoLOG) 100 UNIT/ML VIAL SQ SCH ×4 (07:29→21:05)
[2019-05-25] MEDS: BUDESONIDE 0.5 MG/2 ML NEBU INHALATION SCH ×2 (07:49→20:38)
[2019-05-25] MEDS: HYDROcodone/APAP 7.5-325MG 1 EACH TAB PO PRN ×3 (07:54→21:26)
[2019-05-25] MEDS: AZITHROMYCIN 500 MG TAB PO SCH (07:55)
[2019-05-25] MEDS: VANCOMYCIN 1,750 MG in SODIUM CHLORIDE 0.9% 500 ML 500 ML IVPB SCH ×2 (07:55→15:14)
[2019-05-25] MEDS: ENOXAPARIN 30 MG/0.3 ML SYRINGE SQ SCH ×2 (07:55→21:28)
[2019-05-25] MEDS: OXYMETAZOLINE 0.05% NASL SPRAY 1 SPRAY BOTTLE NASAL SCH ×2 (07:56→21:28)
[2019-05-25 11:48] LABS: Glucose,Whole Blood 253 mg/dL (75-99)
--- NOTE | 2019-05-25 15:16 | P.PN ---
Subjective Progress Note Date: 05/25/19 Principal diagnosis: Status post right knee arthrotomy with irrigation, polyethylene liner exchange and antibiotic bead placement, quadriceps tendon and medial retinacular repair Patient evaluated at bedside today, he is resting in his chair. He is utilizing a knee immobilizer. Denies any chest pain or shortness of breath at this time. Objective - Vital Signs Vital signs: Vital Signs Temp 97.8 F 05/25/19 14:51 Pulse 103 H 05/25/19 14:51 Resp 18 05/25/19 14:51 BP 121/74 05/25/19 14:51 Pulse Ox 90 L 05/25/19 14:51 Intake & Output 05/24/19 05/25/19 05/25/19 18:59 06:59 18:59 Intake Total 600 Output Total 150 900 700 Balance -150 -300 -700 Intake: Intake, IV Titration 600 Amount Sodium Chloride 0.9% 1, 600 000 ml @ 100 mls/hr IV . Q10H [facility] Rx#:[id number] Output: Urine 150 900 700 Other: Voiding Method Urinal Urinal Urinal # Voids 3 1 - Exam Right lower extremity: [place] are in good position and condition, no active drainage. Calf is soft, no tenderness with palpation. Distal neurovascular exam is intact. - Labs CBC & Chem 7: 05/24/19 06:16 05/25/19 06:53 Labs: Abnormal Lab Results - Last 24 Hours (Table) 05/24/19 05/24/19 05/24/19 Range/Units 06:16 16:38 20:57 Creatinine (0.66-1.25) mg/dL POC Glucose (mg/dL) 101 H 162 H (75-99) mg/dL Hemoglobin A1c 7.0 H (4.0-6.0) % 05/25/19 05/25/19 05/25/19 Range/Units 06:52 06:53 11:46 Creatinine 0.54 L (0.66-1.25) mg/dL POC Glucose (mg/dL) 133 H 253 H (75-99) mg/dL Hemoglobin A1c (4.0-6.0) % Microbiology - Last 24 Hours (Table) 05/23/19 07:34 Anaerobic Culture - Preliminary Knee - Right 05/23/19 07:34 Anaerobic Culture - Preliminary Knee - Right 05/23/19 10:43 Blood Culture - Preliminary Blood No Growth after 48 hours 05/23/19 10:43 Blood Culture - Preliminary Blood No Growth after 48 hours 05/23/19 07:34 Gram Stain - Final Knee - Right Wound Culture - Final 05/23/19 07:34 Gram Stain - Final Knee - Right Wound Culture - Final Assessment and Plan Plan: Assessment: 1. Postop day #2 status post right knee arthrotomy with irrigation, polyethylene liner exchange and antibiotic bead placement, quadriceps tendon and medial retinacular repair 2. Right knee periprosthetic infection 3. Other medical comorbidities Plan: Daily dressing changes, ice and elevate 28/11 Utilize knee immobilizer when ambulating, toe touch weightbearing with walker Keep knee in extension at all times Await culture and sensitivity results Pain control Other medical records specialist recommendations GI and DVT prophylaxis, continue current medication Anticipate patient will be in hospital through with hopeful discharge home on Monday Time with Patient: Less than 30
--- NOTE | 2019-05-25 15:29 | P.PN ---
Subjective 59-year-old the mail admitted for irrigation of the right knee for possibility of infection in the right knee in the tendinous tear which was repaired. Patient on vancomycin. Patient's says his redness significantly improved regarding chance to look at the knee which has some redness and inflammation which appears to be mostly seconded to surgery. Patient wheezing improved today, hyponatremia improved symptoms sodium is 121 today with IV normal saline blood pressure fairly stable. Hyperkalemia resolved 05/25/2019 Patient still has some rhonchi wheezing significantly improved still has decreased air entry into bilateral lung snow patient feels much less short of breath Constitutional: Denied any fatigue denied any fever. Cardio vascular: denied any chest pain, palpitations Gastrointestinal denied any nausea vomiting Pulmonary: Patient is able to cough up now shortness of breath is better Neurologic denied any new focal deficits All inpatient medications were reviewed and appropriate changes in these medications as dictated in the interval history and assessment and plan. Objective - Vital Signs Vital signs: Vital Signs Temp 97.8 F 05/25/19 14:51 Pulse 103 H 05/25/19 14:51 Resp 18 05/25/19 14:51 BP 121/74 05/25/19 14:51 Pulse Ox 90 L 05/25/19 14:51 Intake & Output 05/24/19 05/25/19 05/25/19 18:59 06:59 18:59 Intake Total 600 Output Total 150 900 700 Balance -150 -300 -700 Intake: Intake, IV Titration 600 Amount Sodium Chloride 0.9% 1, 600 000 ml @ 100 mls/hr IV . Q10H [facility] Rx#:[id number] Output: Urine 150 900 700 Other: Voiding Method Urinal Urinal Urinal # Voids 3 1 - Exam PHYSICAL EXAMINATION: GENERAL: The patient is alert and oriented x3, not in any acute distress. Well developed, well nourished. HEENT: Pupils are round and equally reacting to light. EOMI. No scleral icterus. No conjunctival pallor. Normocephalic, atraumatic. No pharyngeal erythema. No thyromegaly. CARDIOVASCULAR: S1 and S2 present. No murmurs, rubs, or gallops. PULMONARY: Patient's wheezing and rhonchi improved. ABDOMEN: Soft, nontender, nondistended, normoactive bowel sounds. No palpable organomegaly. MUSCULOSKELETAL: No joint swelling or deformity. EXTREMITIES: No cyanosis, clubbing, or pedal edema. was unable to examine the right knee as that is packed post surgically NEUROLOGICAL: Gross neurological examination did not reveal any focal deficits. SKIN: Redness around the surgical site area without any significant local is of temperature - Labs CBC & Chem 7: 05/24/19 06:16 05/25/19 06:53 Labs: Abnormal Lab Results - Last 24 Hours (Table) 05/24/19 05/24/19 05/24/19 Range/Units 06:16 16:38 20:57 Creatinine (0.66-1.25) mg/dL POC Glucose (mg/dL) 101 H 162 H (75-99) mg/dL Hemoglobin A1c 7.0 H (4.0-6.0) % 05/25/19 05/25/19 05/25/19 Range/Units 06:52 06:53 11:46 Creatinine 0.54 L (0.66-1.25) mg/dL POC Glucose (mg/dL) 133 H 253 H (75-99) mg/dL Hemoglobin A1c (4.0-6.0) % Microbiology - Last 24 Hours (Table) 05/23/19 07:34 Anaerobic Culture - Preliminary Knee - Right 05/23/19 07:34 Anaerobic Culture - Preliminary Knee - Right 05/23/19 10:43 Blood Culture - Preliminary Blood No Growth after 48 hours 05/23/19 10:43 Blood Culture - Preliminary Blood No Growth after 48 hours 05/23/19 07:34 Gram Stain - Final Knee - Right Wound Culture - Final 05/23/19 07:34 Gram Stain - Final Knee - Right Wound Culture - Final Assessment and Plan Plan: -hyponatremia improving now continue to hold off on chlorthalidone, IV fluids surgery will be discontinued her is a hyponatremia improved -Hyperkalemia secondary to lisinopril which is being held and the hyperkalemia resolved. Patient blood pressures fairly stable in spite of not continue chlorthalidone and lisinopril -COPD with minimal exacerbation, continue inhaled steroids inhalational treatments. Patient has significant improvement with inhalational treatments and his steroids off oxygen saturating at 90% still has some wheeze -Right knee tenderness fracture with possible infection for which patient on vancomycin infectious disease evaluated the patient -Type 2 diabetes mellitus: metformin can be continued along with sliding scale insulin. -hypothyroidism DVT prophylaxis as per primary service
[2019-05-25 16:37] LABS: Glucose,Whole Blood 114 mg/dL (75-99)
[2019-05-25 20:19] LABS: Glucose,Whole Blood 109 mg/dL (75-99)
[2019-05-25] MEDS: SENNOSIDES-DOCUSATE SODIUM 1 EACH TAB PO SCH (21:27)
[2019-05-25] MEDS: PRAVASTATIN SODIUM 20 MG TAB PO SCH (21:27)
--- NOTE | 2019-05-25 23:29 | PN ---
PROGRESS NOTE DATE OF SERVICE: 05/25/2019 REASON FOR FOLLOWUP: Right knee septic arthritis. INTERVAL HISTORY: The patient is currently afebrile. The patient is breathing comfortably. Pain to the right knee is currently controlled. Denies any chest pain, shortness of breath or cough. No abdominal pain. No diarrhea. PHYSICAL EXAMINATION: Blood pressure 136/72 with a pulse of 88, temperature of 98. He is 97% on room air. General description is a middle-aged male lying in bed in no distress. Respiratory system: Unlabored breathing. Clear to auscultation anteriorly. Heart S1, S2. Regular rate and rhythm. Abdomen soft. No tenderness. Right knee is currently dressed up. No obvious drainage on the dressing. LABS: Creatinine 0.54. Vancomycin trough is 17.8. Cultures so far negative. Blood culture has been negative. DIAGNOSTIC IMPRESSION AND PLAN: Patient with right knee septic arthritis. This patient status post polyethylene exchange and debridement with culture so far negative. We will monitor clinical course closely. Continue with vancomycin. Discharge antibiotic depending on the final culture report and continue supportive care. MMODL / IJN: [id number] /
[2019-05-26] MEDS: VANCOMYCIN 1,750 MG in SODIUM CHLORIDE 0.9% 500 ML 500 ML IVPB SCH ×2 (00:25→08:11)
[2019-05-26] MEDS: IPRATROPIUM-ALBUTEROL 3 ML NEB INHALATION SCH ×7 (00:40→23:11)
[2019-05-26] MEDS: SODIUM CHLORIDE 0.9% 1,000 ML IV SCH ×3 (02:40→13:56)
[2019-05-26] MEDS: LEVOTHYROXINE 88 MCG TAB PO SCH (04:59)
[2019-05-26 06:49] LABS: Glucose,Whole Blood 124 mg/dL (75-99)
[2019-05-26] MEDS: HYDROcodone/APAP 7.5-325MG 1 EACH TAB PO PRN ×3 (06:55→21:54)
[2019-05-26 07:36] LABS: African American GFR (CKD) >90 (>60 ml/min/1.73 sqM); Anion Gap 5 mmol/L; Blood Urea Nitrogen 13 mg/dL (9-20); Calcium 9.4 mg/dL (8.4-10.2); Carbon Dioxide 34 mmol/L (22-30); Chloride 92 mmol/L (98-107); Glucose 124 mg/dL (74-99); Non-African American GFR(CKD) >90 (>60 ml/min/1.73 sqM); Potassium 4.5 mmol/L (3.5-5.1); Sodium 131 mmol/L (137-145)
[2019-05-26] MEDS: AZITHROMYCIN 500 MG TAB PO SCH (08:10)
[2019-05-26] MEDS: ENOXAPARIN 30 MG/0.3 ML SYRINGE SQ SCH ×2 (08:10→21:53)
[2019-05-26] MEDS: INSULIN ASPART (NovoLOG) 100 UNIT/ML VIAL SQ SCH ×4 (08:11→21:48)
[2019-05-26] MEDS: OXYMETAZOLINE 0.05% NASL SPRAY 1 SPRAY BOTTLE NASAL SCH ×2 (08:12→21:56)
[2019-05-26] MEDS: BUDESONIDE 0.5 MG/2 ML NEBU INHALATION SCH ×2 (08:45→19:01)
[2019-05-26 11:32] LABS: Glucose,Whole Blood 175 mg/dL (75-99)
--- NOTE | 2019-05-26 13:53 | P.PN ---
Subjective 59-year-old the mail admitted for irrigation of the right knee for possibility of infection in the right knee in the tendinous tear which was repaired. Patient on vancomycin. Patient's says his redness significantly improved regarding chance to look at the knee which has some redness and inflammation which appears to be mostly seconded to surgery. Patient wheezing improved today, hyponatremia improved symptoms sodium is 121 today with IV normal saline blood pressure fairly stable. Hyperkalemia resolved 05/25/2019 Patient still has some rhonchi wheezing significantly improved still has decreased air entry into bilateral lung snow patient feels much less short of breath 05/26/2019 Patient is is pretty status significant improved is off oxygen patient is asking for nicotine patch which will be ordered and patient the serum sodium remains at 130 because of which I'll obtain urine and serum osmolality along with urine random sodium urine random creatinine after which patient will be started on IV fluids at 100 mL per hour we'll recheck the BMP tomorrow Constitutional: Denied any fatigue denied any fever. Cardio vascular: denied any chest pain, palpitations Gastrointestinal denied any nausea vomiting Pulmonary: Patient is able to cough up now shortness of breath is better Neurologic denied any new focal deficits All inpatient medications were reviewed and appropriate changes in these medications as dictated in the interval history and assessment and plan. Objective - Vital Signs Vital signs: Vital Signs Temp 98.2 F 05/26/19 07:00 Pulse 78 05/26/19 08:58 Resp 18 05/26/19 07:00 BP 141/76 05/26/19 07:00 Pulse Ox 90 L 05/26/19 07:00 Intake & Output 05/25/19 05/26/19 05/26/19 18:59 06:59 18:59 Intake Total 240 Output Total 1000 600 Balance -1000 240 -600 Intake: Oral 240 Output: Urine 1000 600 Other: Voiding Method Urinal # Voids 1 1 - Exam PHYSICAL EXAMINATION: GENERAL: The patient is alert and oriented x3, not in any acute distress. Well developed, well nourished. HEENT: Pupils are round and equally reacting to light. EOMI. No scleral icterus. No conjunctival pallor. Normocephalic, atraumatic. No pharyngeal erythema. No thyromegaly. CARDIOVASCULAR: S1 and S2 present. No murmurs, rubs, or gallops. PULMONARY: Patient's wheezing and rhonchi improved. ABDOMEN: Soft, nontender, nondistended, normoactive bowel sounds. No palpable organomegaly. MUSCULOSKELETAL: No joint swelling or deformity. EXTREMITIES: No cyanosis, clubbing, or pedal edema. was unable to examine the right knee as that is packed post surgically NEUROLOGICAL: Gross neurological examination did not reveal any focal deficits. SKIN: Redness around the surgical site area without any significant local is of temperature - Labs CBC & Chem 7: 05/24/19 06:16 05/26/19 06:27 Labs: Abnormal Lab Results - Last 24 Hours (Table) 05/25/19 05/25/19 05/26/19 Range/Units 16:35 20:18 06:27 Sodium 131 L (137-145) mmol/L Chloride 92 L (98-107) mmol/L Carbon Dioxide 34 H (22-30) mmol/L Creatinine 0.54 L (0.66-1.25) mg/dL Glucose 124 H (74-99) mg/dL POC Glucose (mg/dL) 114 H 109 H (75-99) mg/dL Osmolality (280-301) mosm/kg 05/26/19 05/26/19 05/26/19 Range/Units 06:27 06:47 11:30 Sodium (137-145) mmol/L Chloride (98-107) mmol/L Carbon Dioxide (22-30) mmol/L Creatinine (0.66-1.25) mg/dL Glucose (74-99) mg/dL POC Glucose (mg/dL) 124 H 175 H (75-99) mg/dL Osmolality 275 L (280-301) mosm/kg Microbiology - Last 24 Hours (Table) 05/23/19 10:43 Blood Culture - Preliminary Blood No Growth after 72 hours 05/23/19 10:43 Blood Culture - Preliminary Blood No Growth after 72 hours 05/23/19 07:34 Anaerobic Culture - Preliminary Knee - Right 05/23/19 07:34 Anaerobic Culture - Preliminary Knee - Right 05/23/19 07:34 Gram Stain - Final Knee - Right Wound Culture - Final 05/23/19 07:34 Gram Stain - Final Knee - Right Wound Culture - Final Assessment and Plan Plan: -hyponatremia improving now continue to hold off on chlorthalidone, IV fluids surgery will be discontinued her is a hyponatremia improved. A hyponatremia workup as mentioned above -Hyperkalemia secondary to lisinopril which is being held and the hyperkalemia resolved. Patient blood pressures fairly stable in spite of not continue chlorthalidone and lisinopril -COPD with minimal exacerbation, continue inhaled steroids inhalational treatments. Patient has significant improvement with inhalational treatments and his steroids off oxygen saturating at 90% still has some wheeze -Right knee tenderness fracture with possible infection for which patient on vancomycin infectious disease evaluated the patient -Type 2 diabetes mellitus: metformin can be continued along with sliding scale insulin. -hypothyroidism DVT prophylaxis as per primary service
[2019-05-26] MEDS: NICOTINE 21MG/24HR PATCH TRANSDERM SCH (13:54)
[2019-05-26 15:05] LABS: Creatinine,Urine Random 40.5 mg/dL
--- NOTE | 2019-05-26 16:43 | P.PN ---
Subjective Progress Note Date: 05/26/19 Principal diagnosis: Status post right knee arthrotomy with irrigation, polyethylene liner exchange and antibiotic bead placement, quadriceps tendon and medial retinacular repair Patient evaluated at bedside today, he is resting in his chair. He is utilizing a knee immobilizer. Denies any chest pain or shortness of breath at this time. Objective - Vital Signs Vital signs: Vital Signs Temp 98.3 F 05/26/19 14:55 Pulse 80 05/26/19 15:24 Resp 16 05/26/19 15:24 BP 137/77 05/26/19 14:55 Pulse Ox 98 05/26/19 15:14 Intake & Output 05/25/19 05/26/19 05/26/19 18:59 06:59 18:59 Intake Total 240 Output Total 1000 600 Balance -1000 240 -600 Intake: Oral 240 Output: Urine 1000 600 Other: Voiding Method Urinal # Voids 1 1 - Exam Right lower extremity: [place] are in good position and condition, no active drainage. Calf is soft, no tenderness with palpation. Distal neurovascular exam is intact. - Labs CBC & Chem 7: 05/24/19 06:16 05/26/19 06:27 Labs: Abnormal Lab Results - Last 24 Hours (Table) 05/25/19 05/26/19 05/26/19 Range/Units 20:18 06:27 06:27 Sodium 131 L (137-145) mmol/L Chloride 92 L (98-107) mmol/L Carbon Dioxide 34 H (22-30) mmol/L Creatinine 0.54 L (0.66-1.25) mg/dL Glucose 124 H (74-99) mg/dL POC Glucose (mg/dL) 109 H (75-99) mg/dL Osmolality 275 L (280-301) mosm/kg 05/26/19 05/26/19 Range/Units 06:47 11:30 Sodium (137-145) mmol/L Chloride (98-107) mmol/L Carbon Dioxide (22-30) mmol/L Creatinine (0.66-1.25) mg/dL Glucose (74-99) mg/dL POC Glucose (mg/dL) 124 H 175 H (75-99) mg/dL Osmolality (280-301) mosm/kg Microbiology - Last 24 Hours (Table) 05/23/19 10:43 Blood Culture - Preliminary Blood No Growth after 72 hours 05/23/19 10:43 Blood Culture - Preliminary Blood No Growth after 72 hours 05/23/19 07:34 Anaerobic Culture - Preliminary Knee - Right 05/23/19 07:34 Anaerobic Culture - Preliminary Knee - Right 05/23/19 07:34 Gram Stain - Final Knee - Right Wound Culture - Final 05/23/19 07:34 Gram Stain - Final Knee - Right Wound Culture - Final Assessment and Plan Plan: Assessment: 1. Postop day #3 status post right knee arthrotomy with irrigation, polyethylene liner exchange and antibiotic bead placement, quadriceps tendon and medial retinacular repair 2. Right knee periprosthetic infection 3. Other medical comorbidities Plan: Daily dressing changes, ice and elevate 28/11 Utilize knee immobilizer when ambulating, toe touch weightbearing with walker Keep knee in extension at all times Await culture and sensitivity results Pain control Other biomedical manager recommendations GI and DVT prophylaxis, continue current medication Anticipate discharge to home tomorrow
[2019-05-26 16:45] LABS: Glucose,Whole Blood 161 mg/dL (75-99)
[2019-05-26 21:48] LABS: Glucose,Whole Blood 111 mg/dL (75-99)
[2019-05-26] MEDS: SENNOSIDES-DOCUSATE SODIUM 1 EACH TAB PO SCH (21:53)
[2019-05-26] MEDS: PRAVASTATIN SODIUM 20 MG TAB PO SCH (21:54)
--- NOTE | 2019-05-26 22:37 | PN ---
PROGRESS NOTE DATE OF SERVICE: 05/26/2019 REASON FOR FOLLOWUP: Right knee septic arthritis. INTERVAL HISTORY: The patient is currently afebrile, has been breathing comfortably. The patient denies any chest pain. No shortness of breath or cough. No nausea or vomiting. No abdominal pain. No pain to the right knee area. PHYSICAL EXAMINATION: Blood pressure is 151/75 with a pulse of 90, temperature 98. He is 91% on 2 L nasal cannula. General description is a middle-aged male lying in bed in no distress. Respiratory system: Unlabored breathing. Clear to auscultation anteriorly. Heart S1, S2. Regular rate and rhythm. Abdomen soft, no tenderness. Right knee incision currently looks clean. Minimal swelling. No redness. No significant warmth. LABS: Creatinine 0.54. Overall blood culture has been negative. DIAGNOSTIC IMPRESSION AND PLAN: Patient admitted to the hospital with possible right knee septic arthritis status post polyethylene exchange. Oral culture has been negative for resistant pathogen so far. Antibiotic was switched to Rocephin 2 gm daily to finish outpatient antibiotic therapy for a few weeks and close outpatient follow up. MMODL / IJN: [id number] /
[2019-05-27] MEDS: IPRATROPIUM-ALBUTEROL 3 ML NEB INHALATION SCH ×3 (03:23→11:54)
[2019-05-27] MEDS: LEVOTHYROXINE 88 MCG TAB PO SCH (06:14)
[2019-05-27] MEDS: HYDROcodone/APAP 7.5-325MG 1 EACH TAB PO PRN ×2 (06:15→11:54)
[2019-05-27 06:48] LABS: Glucose,Whole Blood 114 mg/dL (75-99)
[2019-05-27] MEDS: INSULIN ASPART (NovoLOG) 100 UNIT/ML VIAL SQ SCH ×2 (06:55→11:28)
[2019-05-27] MEDS ORDERED: VANCOMYCIN TROUGH DUE 1 EACH MISC MISCELLANE ONE (07:00)
[2019-05-27] MEDS: AZITHROMYCIN 500 MG TAB PO SCH (07:05)
[2019-05-27] MEDS: OXYMETAZOLINE 0.05% NASL SPRAY 1 SPRAY BOTTLE NASAL SCH (07:05)
[2019-05-27] MEDS: ENOXAPARIN 30 MG/0.3 ML SYRINGE SQ SCH (07:06)
[2019-05-27] MEDS: NICOTINE 21MG/24HR PATCH TRANSDERM SCH (07:06)
[2019-05-27] MEDS: SODIUM CHLORIDE 0.9% 1,000 ML IV SCH (07:06)
[2019-05-27 07:50] VITALS: BP 158/79; RESP 15; TEMP 97.8
[2019-05-27] MEDS: BUDESONIDE 0.5 MG/2 ML NEBU INHALATION SCH (08:22)
[2019-05-27 09:47] LABS: African American GFR (CKD) >90 (>60 ml/min/1.73 sqM); Anion Gap 9 mmol/L; Blood Urea Nitrogen 12 mg/dL (9-20); Calcium 9.6 mg/dL (8.4-10.2); Carbon Dioxide 31 mmol/L (22-30); Chloride 93 mmol/L (98-107); Glucose 108 mg/dL (74-99); Non-African American GFR(CKD) >90 (>60 ml/min/1.73 sqM); Potassium 4.5 mmol/L (3.5-5.1); Sodium 133 mmol/L (137-145)
[2019-05-27 11:54] LABS: Glucose,Whole Blood 140 mg/dL (75-99)
[2019-05-27 12:05] VITALS: PULSE 96
--- NOTE | 2019-05-27 12:25 | P.PN ---
Subjective Progress Note Date: 05/27/19 Principal diagnosis: Status post right knee arthrotomy with irrigation, polyethylene liner exchange and antibiotic bead placement, quadriceps tendon and medial retinacular repair Patient evaluated at bedside today, he is resting in his chair. He is utilizing a knee immobilizer. Denies any chest pain or shortness of breath at this time. Objective - Vital Signs Vital signs: Vital Signs Temp 97.8 F 05/27/19 07:00 Pulse 96 05/27/19 12:05 Resp 15 05/27/19 08:00 BP 158/79 05/27/19 07:00 Pulse Ox 89 L 05/27/19 07:00 Intake & Output 05/26/19 05/27/19 05/27/19 18:59 06:59 18:59 Intake Total 480 Output Total 600 Balance -600 480 Intake: Oral 480 Output: Urine 600 Other: Voiding Method Urinal # Voids 3 - Exam Right lower extremity: [place] are in good position and condition, no active drainage. Calf is soft, no tenderness with palpation. Distal neurovascular exam is intact. - Labs CBC & Chem 7: 05/24/19 06:16 05/27/19 06:41 Labs: Abnormal Lab Results - Last 24 Hours (Table) 05/26/19 05/26/19 05/26/19 Range/Units 06:27 16:42 21:47 Sodium (137-145) mmol/L Chloride (98-107) mmol/L Carbon Dioxide (22-30) mmol/L Creatinine (0.66-1.25) mg/dL Glucose (74-99) mg/dL POC Glucose (mg/dL) 161 H 111 H (75-99) mg/dL Osmolality 275 L (280-301) mosm/kg 05/27/19 05/27/19 05/27/19 Range/Units 06:41 06:46 11:42 Sodium 133 L (137-145) mmol/L Chloride 93 L (98-107) mmol/L Carbon Dioxide 31 H (22-30) mmol/L Creatinine 0.54 L (0.66-1.25) mg/dL Glucose 108 H (74-99) mg/dL POC Glucose (mg/dL) 114 H 140 H (75-99) mg/dL Osmolality (280-301) mosm/kg Microbiology - Last 24 Hours (Table) 05/23/19 10:43 Blood Culture - Preliminary Blood No Growth after 72 hours 05/23/19 10:43 Blood Culture - Preliminary Blood No Growth after 72 hours Assessment and Plan Plan: Assessment: 1. Postop day #4 status post right knee arthrotomy with irrigation, polyethylene liner exchange and antibiotic bead placement, quadriceps tendon and medial retinacular repair 2. Right knee periprosthetic infection 3. Other medical comorbidities Plan: Daily dressing changes, ice and elevate / Utilize knee immobilizer when ambulating, toe touch weightbearing with walker Keep knee in extension at all times Pain control, norco for discharge Other medical health researcher recommendations GI and DVT prophylaxis, continue current medication Discharge home today Time with Patient: Less than 30
--- NOTE | 2019-05-27 12:32 | P.DS ---
Providers Date of admission: 05/23/19 05:57 Expected date of discharge: 05/27/19 Attending physician: Milind Patton Consults: 05/23/19 08:47 Consult Physician Routine Consulting Provider: Kelly Serrano Consult Reason/Comments: Medical Management Do you want consulting provider notified?: Yes Consult Physician Routine Consulting Provider: Anil Arvizu Consult Reason/Comments: Antibioitic, infected total right knee arthroplasty Do you want consulting provider notified?: Yes Primary care physician: Shawna Trejo Hospital Course: Date of admission: 05/23/2019 Date of discharge: 05/27/2019 Admission diagnosis: Status post right knee arthrotomy with irrigation, antibiotic bead placement and polyethylene liner exchange, medial retinaculum and quadriceps tendon repair Discharge diagnosis: same Attending physician: Dr. Patton Surgical procedures: Right knee arthrotomy with irrigation, antibiotic bead placement and polyethylene liner exchange, medial retinaculum and quadriceps tendon repair Brief history: Patient is a 59-year-old male with a history of previous right knee replacement. He was evaluated in the outpatient setting by Dr. Patton with regards to pain, swelling, redness and inability to extend the leg. It was determined that there is a likely infection involving the right knee along with a tear of the medial retinaculum and quadriceps tendon. He was scheduled for surgery on 05/23/2019. Hospital course: Details of patient's surgery can be found in operative report. Patient tolerated the procedure well and was subsequently transported to orthopedic floor. Patient's orthopeidc and medical care was provided daily. Patient had daily laboratory tests performed for evaluation of overall blood counts. Patient had daily physical therapy to include strengthening range of motion as well as education with walker ambulation. Patient had daily CPM usage as part of their physical therapy program. Patient was treated with Lovenox for their postoperative DVT prophylaxis during their inpatient stay. Patient was noted to have a relatively uneventful postoperative course. Patient reported satisfactory pain control with oral pain medications by postoperative day 0. Patient showed satisfactory progress with physical therapy. Patient moved steadily through the program and had no difficulty meeting the goals by postoperative day 4. Given patient's otherwise satisfactory course and having met physical therapy goals, plan is to discharge patient home on postoperative day 4. Discharge condition/disposition: Patient will be discharged home in stable condition. Discharge medications: Instructions are given on resumption of patient's normal daily medications per primary care recommendation, in addition patient will be prescribed Harrah 7.5 mg/325 mg Discharge instructions: 1. Wound care and infection precautions, keep incision dry and covered while showering, no lotions, creams, moisturizers. No soaking, tubs, pools, hottubs. Do not scrub over the incision. 2. Weight-bear as tolerated with walker / cane until follow-up. 3. Ice and elevate when necessary. Do not exceed 20 minutes per hour with ice pack. 4. Utilize compression sleeve until seen at first follow up appointment. 5. Visiting nursing care. 7. Pain meds and anticoagulants per prescription. 8. Pain medication has potential to cause constipation. Increase oral fluid and fiber intake. Contact primary care provider if you have not had a bowel movement within 48 hours after discharge 9. No anti-inflammatory medication until discussed at first post operative visit, this including Motrin, Aleve, Mobic, Diclofenac 10. Follow up in office at 2 weeks postop with Torrey Arguelles PA-C 11. Follow up with your primary care doctor 7-10 days after discharge. 12. Contact [facility] with any questions, . Procedures: Right knee arthrotomy with irrigation, polyethylene liner exchange and antibiotic bead placement, repair quadriceps tendon and medial retinaculum Patient Condition at Discharge: Good Plan - Discharge Summary Discharge Rx Participant: Yes New Discharge Prescriptions: New HYDROcodone/APAP 7.5-325MG [Harrah 7.5] 1 - 2 each PO Q6HR PRN #40 tab PRN Reason: Pain No Action metFORMIN HCL [Glucophage] 500 mg PO QAM Pravastatin Sodium [Pravachol] 10 mg PO HS Levothyroxine Sodium [Synthroid] 88 mcg PO DAILY Ipratropium/Albuterol Sulfate [Combivent Respimat Inhaler] 1 - 2 puff INHALATION RT-QID PRN PRN Reason: Dyspnea Lisinopril [Zestril] 10 mg PO BID Ipratropium-Albuterol Nebulize [Duoneb 0.5 mg-3 mg/3 ml Soln] 3 ml INHALATION Q4-6H Sildenafil Citrate [Viagra] 50 mg PO ONCE PRN PRN Reason: ERECTILE DYSFUNCTION Aspirin [Adult Low Dose Aspirin EC] 81 mg PO BID #60 tablet. Chlorthalidone 25 mg PO QAM Doxycycline [Vibramycin] 100 mg PO BID Docusate [Colace] 100 mg PO DAILY PRN PRN Reason: Constipation Discharge Medication List Ipratropium-Albuterol Nebulize [Duoneb 0.5 mg-3 mg/3 ml Soln] 3 ml INHALATION Q4-6H 01/03/18 [History] Ipratropium/Albuterol Sulfate [Combivent Respimat Inhaler] 1 - 2 puff INHALATION RT-QID PRN 01/03/18 [History] Levothyroxine Sodium [Synthroid] 88 mcg PO DAILY 01/03/18 [History] Lisinopril [Zestril] 10 mg PO BID 01/03/18 [History] Pravastatin Sodium [Pravachol] 10 mg PO HS 01/03/18 [History] metFORMIN HCL [Glucophage] 500 mg PO QAM 01/03/18 [History] Sildenafil Citrate [Viagra] 50 mg PO ONCE PRN 03/27/19 [History] Aspirin [Adult Low Dose Aspirin EC] 81 mg PO BID #60 tablet. 04/03/19 [Rx] Chlorthalidone 25 mg PO QAM 05/22/19 [History] Docusate [Colace] 100 mg PO DAILY PRN 05/22/19 [History] Doxycycline [Vibramycin] 100 mg PO BID 05/22/19 [History] HYDROcodone/APAP 7.5-325MG [Harrah 7.5] 1 - 2 each PO Q6HR PRN #40 tab 05/27/19 [Rx] Follow up Appointment(s)/Referral(s): [facility], [NON-STAFF] - [facility], [REFERRING] - Alcides Arguelles PAC [PHYSICIAN MINING TEACHER] - 2 Weeks Activity/Diet/Wound Care/Special Instructions: [facility] will deliver antibiotic supplies to patient's home tonight. They will call before delivery. [facility] will meet patient at home on 05/28/2019 to begin home infusions. Orthopedic Discharge Instructions: 1. Wound care and infection precautions, keep incision dry and covered while showering, no lotions, creams, moisturizers. No soaking, pools, hot tubs. Do not scrub over incision. 2. Weight-bear as tolerated with walker / cane until follow-up. 3. Ice and elevate when necessary. Do not exceed 20 minutes per hour with ice pack. 4. Utilize compression sleeve until seen at first follow up appointment. 5. Pain meds and anticoagulants per prescription. 6. Pain medication has potential to cause constipation. Increase oral fluid and fiber intake. Contact primary care provider if you have not had a bowel movement within 48 hours after discharge. 7. No anti-inflammatory medication until discussed at first post operative visit, this including Motrin, Aleve, Mobic, Diclofenac. 8. Follow up in office at 2 weeks postop with Torrey Arguelles PA-C 9. Follow up with your primary care doctor 7-10 days after discharge. 10. Contact [facility] with any questions, . Discharge Disposition: HOME SELF-CARE
--- NOTE | 2019-05-27 14:00 | PN ---
PROGRESS NOTE DATE OF SERVICE: 05/27/2019 REASON FOR FOLLOWUP: Right knee septic arthritis. INTERVAL HISTORY: The patient is currently afebrile. Patient is breathing comfortably. Denies having any chest pain or any cough. No nausea, vomiting or pain to the right knee area. PHYSICAL EXAMINATION: Blood pressure 158/79 with a pulse of 83, temperature 97.8. He is 90% on room air. General description is a middle-aged male lying in bed in no distress. RESPIRATORY SYSTEM: Unlabored breathing, clear to auscultation anteriorly. HEART: S1, S2. Regular rate and rhythm. ABDOMEN: Soft, no tenderness. LABS: BUN of 12, creatinine 0.54. DIAGNOSTIC IMPRESSION AND PLAN: Patient with a right knee possible septic arthritis, status post polyethylene exchange. Cultures remain negative for resistant pathogen. The patient antibiotic switched to Rocephin 2 grams daily to continue for another 4 weeks and close outpatient followup with weekly monitoring of his blood work. MMODL / IJN: [id number] /
--- NOTE | 2019-05-27 21:39 | P.PN ---
Subjective Progress Note Date: 05/27/19 Principal diagnosis: 1. Postop day #4 status post right knee arthrotomy with irrigation, polyethylene liner exchange and antibiotic bead placement, quadriceps tendon and medial retinacular repair 2. Right knee periprosthetic infection 59-year-old the mail admitted for irrigation of the right knee for possibility of infection in the right knee in the tendinous tear which was repaired. Patient on vancomycin. Patient's says his redness significantly improved regarding chance to look at the knee which has some redness and inflammation which appears to be mostly seconded to surgery. Patient wheezing improved today, hyponatremia improved symptoms sodium is 121 today with IV normal saline blood pressure fairly stable. Hyperkalemia resolved 05/25/2019 Patient still has some rhonchi wheezing significantly improved still has decreased air entry into bilateral lung snow patient feels much less short of breath 05/26/2019 Patient is is pretty status significant improved is off oxygen patient is asking for nicotine patch which will be ordered and patient the serum sodium remains at 130 because of which I'll obtain urine and serum osmolality along with urine random sodium urine random creatinine after which patient will be started on IV fluids at 100 mL per hour we'll recheck the BMP tomorrow. 05/27/19 Patient is postoperative day 4, status post right knee arthrotomy with irrigation, polyethylene liner exchange and antibiotic with placement, quadriceps tendon and medial retinacular repair. Today patient is able to ambulate with walker. No fever no chills. Did improve symptomatically. Sodium level improved to 133 today. Patient able to white spontaneously. plans of fever or chills. patient is being discharged home today. Constitutional: Denied any fatigue denied any fever. Cardio vascular: denied any chest pain, palpitations Gastrointestinal denied any nausea vomiting Pulmonary: Patient is able to cough up now shortness of breath is better Neurologic denied any new focal deficits All inpatient medications were reviewed and appropriate changes in these medications as dictated in the interval history and assessment and plan. Objective - Vital Signs Vital signs: Vital Signs Temp 97.8 F 05/27/19 07:00 Pulse 96 05/27/19 12:05 Resp 15 05/27/19 08:00 BP 158/79 05/27/19 07:00 Pulse Ox 89 L 05/27/19 07:00 Intake & Output 05/27/19 05/27/19 05/28/19 06:59 18:59 06:59 Intake Total 480 Balance 480 Intake: Oral 480 Other: Voiding Method Urinal # Voids 3 - Exam PHYSICAL EXAMINATION: GENERAL: The patient is alert and oriented x3, not in any acute distress. Well developed, well nourished. HEENT: Pupils are round and equally reacting to light. EOMI. No scleral icterus. No conjunctival pallor. Normocephalic, atraumatic. No pharyngeal erythema. No thyromegaly. CARDIOVASCULAR: S1 and S2 present. No murmurs, rubs, or gallops. PULMONARY: Patient's wheezing and rhonchi improved. ABDOMEN: Soft, nontender, nondistended, normoactive bowel sounds. No palpable organomegaly. MUSCULOSKELETAL: No joint swelling or deformity. EXTREMITIES: No cyanosis, clubbing, or pedal edema. was unable to examine the right knee as that is packed post surgically NEUROLOGICAL: Gross neurological examination did not reveal any focal deficits. SKIN: surgical site area is clean without any drainage or swelling or discharge. - Labs CBC & Chem 7: 05/24/19 06:16 05/27/19 06:41 Labs: Abnormal Lab Results - Last 24 Hours (Table) 05/26/19 05/27/19 05/27/19 Range/Units 21:47 06:41 06:46 Sodium 133 L (137-145) mmol/L Chloride 93 L (98-107) mmol/L Carbon Dioxide 31 H (22-30) mmol/L Creatinine 0.54 L (0.66-1.25) mg/dL Glucose 108 H (74-99) mg/dL POC Glucose (mg/dL) 111 H 114 H (75-99) mg/dL 05/27/19 Range/Units 11:42 Sodium (137-145) mmol/L Chloride (98-107) mmol/L Carbon Dioxide (22-30) mmol/L Creatinine (0.66-1.25) mg/dL Glucose (74-99) mg/dL POC Glucose (mg/dL) 140 H (75-99) mg/dL Microbiology - Last 24 Hours (Table) 05/23/19 10:43 Blood Culture - Preliminary Blood No Growth after 96 hours 05/23/19 10:43 Blood Culture - Preliminary Blood No Growth after 96 hours 05/23/19 07:34 Anaerobic Culture - Final Knee - Right 05/23/19 07:34 Anaerobic Culture - Final Knee - Right Assessment and Plan Assessment: -hyponatremia improving now continue to hold off on chlorthalidone, IV fluids were discontinued her is a hyponatremia improved. -Hyperkalemia secondary to lisinopril which is being held and the hyperkalemia resolved. Patient blood pressures fairly stable in spite of not continuing chlorthalidone and lisinopril -COPD with minimal exacerbation, continue inhaled steroids inhalational treatments. Patient has significant improvement with inhalational treatments and his steroids off oxygen saturating well on room air. Wheezing improved now. -Right knee periprosthetic nfection for which patient on vancomycin infectious disease evaluated the patient -Type 2 diabetes mellitus: metformin can be continued along with sliding scale insulin. -hypothyroidism DVT prophylaxis as per primary service Time with Patient: Greater than 30
== END 2019-05-27 14:20 | disposition home health service (06) | DRG 486 ==
LOC: 2ORMAIN 05:57 → 4SSUR 08:33
PROVIDERS: ADMIT Orthopaedic Surgery; ATTEND Orthopaedic Surgery
PROC: 0SPC09Z Removal of Liner from Right Knee Joint, Open Approach (ICD-10-PCS; principal; 2019-05-23 07:00)
PROC: 0SUV09Z Supplement Right Knee Joint, Tibial Surface with Liner, Open Approach (ICD-10-PCS; principal; 2019-05-23 07:00)
PROC: 0LQQ0ZZ Repair Right Knee Tendon, Open Approach (ICD-10-PCS; principal; 2019-05-23 07:00)
PROC: 3E0U029 Introduction of Other Anti-infective into Joints, Open Approach (ICD-10-PCS; principal; 2019-05-23 07:00)
PROC: 02HV33Z Insertion of Infusion Device into Superior Vena Cava, Percutaneous Approach (ICD-10-PCS; 2019-05-24)
DX: T84.53XA Infection and inflammatory reaction due to internal right knee prosthesis, initial encounter (principal); E87.1 Hypo-osmolality and hyponatremia; I11.0 Hypertensive heart disease with heart failure; I50.9 Heart failure, unspecified; E03.9 Hypothyroidism, unspecified; E11.9 Type 2 diabetes mellitus without complications; E78.5 Hyperlipidemia, unspecified; E87.5 Hyperkalemia; F17.210 Nicotine dependence, cigarettes, uncomplicated; H91.92 Unspecified hearing loss, left ear; I25.10 Atherosclerotic heart disease of native coronary artery without angina pectoris; J43.9 Emphysema, unspecified; T46.4X5A Adverse effect of angiotensin-converting-enzyme inhibitors, initial encounter; M19.90 Unspecified osteoarthritis, unspecified site; G47.33 Obstructive sleep apnea (adult) (pediatric); M66.851 Spontaneous rupture of other tendons, right thigh; Z79.82 Long term (current) use of aspirin; Z79.84 Long term (current) use of oral hypoglycemic drugs; Z79.890 Hormone replacement therapy; Z79.899 Other long term (current) drug therapy; Z96.652 Presence of left artificial knee joint; Z86.718 Personal history of other venous thrombosis and embolism; Z95.5 Presence of coronary angioplasty implant and graft; Z98.1 Arthrodesis status; Z87.01 Personal history of pneumonia (recurrent)
CPT/HCPCS: 36573; 71046; 80048; 80202; 82565; 82570; 83036; 83930; 83935; 84300; 84443; 85025; 85652; 86140; 87040; 87070; 87075; 87205; 94640; 94660; 94760

== ENCOUNTER 2019-07-09 10:24 | Inpatient (IN) | payer BC, MEDICARE ==
[2019-07-09] MEDS ORDERED: IPRATROPIUM-ALBUTEROL 3 ML NEB INHALATION STA ×3 (10:35→13:04)
[2019-07-09] MEDS ORDERED: SODIUM CHLORIDE 0.9% 1,000 ML IV STA (10:35)
[2019-07-09] MEDS ORDERED: methylPREDNISolone SOD SUCCI 125 MG/2 ML VIAL IV STA (10:35)
[2019-07-09 10:46] LABS: Basophils % (A) 1 %; Eosinophils # (A) 0.1 k/uL (0-0.7); Eosinophils % (A) 1 %; HCT 46.6 % (39.0-53.0); HGB 14.7 gm/dL (13.0-17.5); Lymphocytes # (A) 1.3 k/uL (1.0-4.8); Lymphocytes % (A) 17 %; MCH 30.3 pg (25.0-35.0); MCHC 31.5 g/dL (31.0-37.0); MCV 96.2 fL (80.0-100.0); Mean Platelet Volume 6.7; Monocytes # (A) 0.7 k/uL (0-1.0); Monocytes % (A) 9 %; Neutrophils # (A) 5.4 k/uL (1.3-7.7); Neutrophils % (A) 70 %; Platelet Count 311 k/uL (150-450); RBC 4.85 m/uL (4.30-5.90); RDW 14.5 % (11.5-15.5); WBC 7.7 k/uL (3.8-10.6)
[2019-07-09 11:03] LABS: ALT 30 U/L (4-49); AST 26 U/L (17-59); African American GFR (CKD) >90 (>60 ml/min/1.73 sqM); Albumin 4.2 g/dL (3.5-5.0); Alkaline Phosphatase 68 U/L (38-126); Anion Gap 5 mmol/L; Blood Urea Nitrogen 15 mg/dL (9-20); Calcium 9.1 mg/dL (8.4-10.2); Carbon Dioxide 39 mmol/L (22-30); Chloride 87 mmol/L (98-107); Creatine Kinase 137 U/L (55-170); Glucose 163 mg/dL (74-99); Magnesium 1.9 mg/dL (1.6-2.3); Non-African American GFR(CKD) >90 (>60 ml/min/1.73 sqM); Potassium 4.5 mmol/L (3.5-5.1); Sodium 131 mmol/L (137-145); Total Bilirubin 0.4 mg/dL (0.2-1.3); Total Protein 7.4 g/dL (6.3-8.2)
--- NOTE | 2019-07-09 11:19 | XR ---
EXAMINATION TYPE: XR chest 2V DATE OF EXAM: 07/09/2019 COMPARISON: 05/24/2019 INDICATION: Difficulty breathing TECHNIQUE: Frontal and lateral views of the chest are obtained. FINDINGS: The heart size is mildly prominent. The pulmonary vasculature is somewhat prominent. There is mild diffuse increased lung markings in the right perihilar region. Previous bibasilar atele ctasis has resolved. IMPRESSION: 1. Suggestive of volume overload. Some right infrahilar increased lung markings may be present. Corre late for atypical pulmonary edema. 2. Previous streak atelectasis bilateral lung bases have resolved.
--- NOTE | 2019-07-09 11:24 | ED ---
SOB HPI - General Chief Complaint: Shortness of Breath Stated Complaint: SOB Time Seen by Provider: 07/09/19 10:30 Source: patient, RN notes reviewed Mode of arrival: wheelchair Limitations: no limitations - History of Present Illness Initial Comments: This is a 58-year-old male with a history of multiple medical issues including COPD who states she's been short of breath at rest and with exertion, for a week or so. He denies any overt fevers chills or sweats no overt chest pain just tightness with attempts to breathing. He states she's been using his Combivent inhaler overt over without help. He did appear cyanotic per staff upon arrival. MD Complaint: shortness of breath - Related Data Home Medications Medication Instructions Recorded Confirmed Ipratropium-Albuterol Nebulize 3 ml INHALATION RT-Q4H PRN 01/03/18 07/09/19 [Duoneb 0.5 mg-3 mg/3 ml Soln] Ipratropium/Albuterol Sulfate 1 - 2 puff INHALATION RT-QID PRN 01/03/18 07/09/19 [Combivent Respimat Inhaler] Levothyroxine Sodium [Synthroid] 88 mcg PO DAILY 01/03/18 07/09/19 Pravastatin Sodium [Pravachol] 20 mg PO 01/03/18 07/09/19 metFORMIN HCL [Glucophage] 500 mg PO QA 01/03/18 07/09/19 Sildenafil Citrate [Viagra] 50 mg PO ONCE PRN 03/27/19 07/09/19 Docusate [Colace] 100 mg PO DAILY PRN 05/22/19 07/09/19 Albuterol Nebulized [Ventolin 2.5 mg INHALATION RT-Q4H PRN 07/09/19 07/09/19 Nebulized] Aspirin [Adult Low Dose Aspirin EC] 81 mg PO DAILY 07/09/19 07/09/19 Fluticasone/Umeclidin/Vilanter 1 puff INHALATION RT-DAILY 07/09/19 07/09/19 [Trelegy Ellipta 100-62.5-25] Lisinopril [Zestril] 10 mg PO DAILY 07/09/19 07/09/19 traZODone HCL 50 mg PO 07/09/19 07/09/19 Allergies Allergy/AdvReac Type Severity Reaction Status Date / Time chlorthalidone AdvReac SODIUM Verified 07/09/19 11:23 LEVEL DANGEROUS LOW Review of Systems ROS Statement: Those systems with pertinent positive or pertinent negative responses have been documented in the HPI. ROS Other: All systems not noted in ROS Statement are negative. Past Medical History Past Medical History: Coronary Artery Disease (CAD), Heart Failure, COPD, Diabetes Mellitus, Deep Vein Thrombosis (DVT), Hearing Disorder / Deafness, Hyperlipidemia, Hypertension, Osteoarthritis (OA), Sleep Apnea/CPAP/BIPAP, Thyroid Disorder Additional Past Medical History / Comment(s): CPAP; remote history of DVT as a teen; possible recent pneumonia, finishing course of antibiotic, Lt ear has sl hearing loss. History of Any Multi-Drug Resistant Organisms: None Reported Date of last positivie culture/infection: None MDRO Source:: None Past Surgical History: Adenoidectomy, Back Surgery, Heart Catheterization With Stent, Hernia Repair, Orthopedic Surgery, Tonsillectomy Additional Past Surgical History / Comment(s): lumbar fusion, repair hydrocele, arthroscopy right knee, hand surg, anjali total knee replacement Past Anesthesia/Blood Transfusion Reactions: No Reported Reaction Date of Last Stent Placement:: 2007 Past Psychological History: No Psychological Hx Reported Smoking Status: Current every day smoker Past Alcohol Use History: Rare Past Drug Use History: None Reported - Past Family History Mother Family Medical History: No Reported History General Exam - General Exam Comments Initial Comments: This is a well-developed well-nourished awake alert oriented 3 male Limitations: no limitations General appearance: alert, anxious, in distress Head exam: Present: atraumatic, normocephalic, normal inspection Eye exam: Present: normal appearance, PERRL, EOMI. Absent: scleral icterus, conjunctival injection, periorbital swelling ENT exam: Present: other (Cyanosis noted) Neck exam: Present: normal inspection, full ROM, other (No stridor JVD or bruits). Absent: tenderness, meningismus, lymphadenopathy Respiratory exam: Present: respiratory distress, accessory muscle use, decreased breath sounds. Absent: wheezes, rales, rhonchi, stridor Cardiovascular Exam: Present: regular rate, normal rhythm, systolic murmur. Absent: diastolic murmur, rubs, gallop, clicks GI/Abdominal exam: Present: soft, normal bowel sounds. Absent: distended, tenderness, guarding, rebound, rigid Extremities exam: Present: full ROM, normal capillary refill, pedal edema, other (Edema to the knees). Absent: tenderness, joint swelling, calf tenderness Back exam: Present: normal inspection Neurological exam: Present: alert, oriented X3, CN II-XII intact Psychiatric exam: Present: normal affect, normal mood Skin exam: Present: warm, dry, intact, normal color. Absent: rash Course Vital Signs 07/09/19 07/09/19 07/09/19 10:34 10:35 10:37 Pulse Rate 104 H 96 Respiratory 20 24 16 Rate Blood Pressure 176/94 176/94 O2 Sat by Pulse 61 L 95 Oximetry 07/09/19 07/09/19 07/09/19 11:14 11:24 12:52 Pulse Rate 86 90 90 Respiratory Rate Blood Pressure O2 Sat by Pulse Oximetry 07/09/19 07/09/19 07/09/19 13:03 13:04 13:13 Pulse Rate 87 87 90 Respiratory 16 Rate Blood Pressure 157/98 O2 Sat by Pulse 93 L Oximetry - Reevaluation(s) Reevaluation #1: 07/09/19 13:14 I did reevaluate patient several occasions he is getting minimal relief and improvement thus far. Reevaluation #2: 07/09/19 13:14 Did have an elevated d-dimer CAT scan negative for evidence of pulmonary emboli. Medical Decision Making - Medical Decision Making I did discuss findings the patient's family as well as Dr. March patient will be admitted for inpatient treatment of COPD exacerbation as well as pneumonitis no patient treatment failure. - Lab Data Result diagrams: 07/09/19 10:38 07/09/19 10:38 Lab Results 07/09/19 07/09/19 07/09/19 Range/Units 10:38 10:38 10:38 WBC 7.7 (3.8-10.6) k/uL RBC 4.85 (4.30-5.90) m/uL Hgb 14.7 (13.0-17.5) gm/dL Hct 46.6 (39.0-53.0) % MCV 96.2 (80.0-100.0) fL MCH 30.3 (25.0-35.0) pg MCHC 31.5 (31.0-37.0) g/dL RDW 14.5 (11.5-15.5) % Plt Count 311 (150-450) k/uL Neutrophils % 70 % Lymphocytes % 17 % Monocytes % 9 % Eosinophils % 1 % Basophils % 1 % Neutrophils # 5.4 (1.3-7.7) k/uL Lymphocytes # 1.3 (1.0-4.8) k/uL Monocytes # 0.7 (0-1.0) k/uL Eosinophils # 0.1 (0-0.7) k/uL Basophils # 0.0 (0-0.2) k/uL PT 11.5 (9.0-12.0) sec INR 1.1 (<1.2) APTT 24.8 (22.0-30.0) sec D-Dimer 1.31 H (<0.60) mg/L FEU Sodium 131 L (137-145) mmol/L Potassium 4.5 (3.5-5.1) mmol/L Chloride 87 L (98-107) mmol/L Carbon Dioxide 39 H (22-30) mmol/L Anion Gap 5 mmol/L BUN 15 (9-20) mg/dL Creatinine 0.52 L (0.66-1.25) mg/dL Est GFR (CKD-EPI)AfAm >90 (>60 ml/min/1.73 sqM) Est GFR (CKD-EPI)NonAf >90 (>60 ml/min/1.73 sqM) Glucose 163 H (74-99) mg/dL Plasma Lactic Acid Alvarez (0.7-2.0) mmol/L Calcium 9.1 (8.4-10.2) mg/dL Magnesium 1.9 (1.6-2.3) mg/dL Total Bilirubin 0.4 (0.2-1.3) mg/dL AST 26 (17-59) U/L ALT 30 (4-49) U/L Alkaline Phosphatase 68 (38-126) U/L Creatine Kinase 137 (55-170) U/L Troponin I (0.000-0.034) ng/mL NT-Pro-B Natriuret Pep pg/mL Total Protein 7.4 (6.3-8.2) g/dL Albumin 4.2 (3.5-5.0) g/dL 07/09/19 07/09/19 07/09/19 Range/Units 10:38 10:38 10:38 WBC (3.8-10.6) k/uL RBC (4.30-5.90) m/uL Hgb (13.0-17.5) gm/dL Hct (39.0-53.0) % MCV (80.0-100.0) fL MCH (25.0-35.0) pg MCHC (31.0-37.0) g/dL RDW (11.5-15.5) % Plt Count (150-450) k/uL Neutrophils % % Lymphocytes % % Monocytes % % Eosinophils % % Basophils % % Neutrophils # (1.3-7.7) k/uL Lymphocytes # (1.0-4.8) k/uL Monocytes # (0-1.0) k/uL Eosinophils # (0-0.7) k/uL Basophils # (0-0.2) k/uL PT (9.0-12.0) sec INR (<1.2) APTT (22.0-30.0) sec D-Dimer (<0.60) mg/L FEU Sodium (137-145) mmol/L Potassium (3.5-5.1) mmol/L Chloride (98-107) mmol/L Carbon Dioxide (22-30) mmol/L Anion Gap mmol/L BUN (9-20) mg/dL Creatinine (0.66-1.25) mg/dL Est GFR (CKD-EPI)AfAm (>60 ml/min/1.73 sqM) Est GFR (CKD-EPI)NonAf (>60 ml/min/1.73 sqM) Glucose (74-99) mg/dL Plasma Lactic Acid Alvarez 1.4 (0.7-2.0) mmol/L Calcium (8.4-10.2) mg/dL Magnesium (1.6-2.3) mg/dL Total Bilirubin (0.2-1.3) mg/dL AST (17-59) U/L ALT (4-49) U/L Alkaline Phosphatase (38-126) U/L Creatine Kinase (55-170) U/L Troponin I <0.012 (0.000-0.034) ng/mL NT-Pro-B Natriuret Pep 316 pg/mL Total Protein (6.3-8.2) g/dL Albumin (3.5-5.0) g/dL - EKG Data -: EKG Interpreted by Me EKG shows normal: sinus rhythm (Sinus rhythm a 93. Interval 144 QRS duration 94 QT since QTC 370/460 evidence a left anterior fascicular block no acute ST-T wave changes) - Radiology Data Radiology results: report reviewed (I did review the imaging and report no definite evidence of emboli x-ray does show questionable right infrahilar infiltrate.), image reviewed Critical Care Time Critical Care Time: Yes Critical Care Time: Critical care time: 37 minutes of critical care time which includes initial presentation with history physical labs x-rays multiple reevaluation the patient response to therapy discussed with patient family regarding findings discussed with Dr. March admission orders documentation of the above. Disposition Clinical Impression: Acute exacerbation of chronic obstructive pulmonary disease, Acute respiratory distress syndrome in adult, Pneumonia, Hypoxemia Disposition: ADMITTED IP TO THIS HOSP Condition: Fair Referrals: Shawna Trejo MD [Primary Care Provider] - 1-2 days
[2019-07-09 11:25] LABS: INR 1.1 (<1.2); Partial Thromboplastin Time 24.8 sec (22.0-30.0); Prothrombin Time 11.5 sec (9.0-12.0)
[2019-07-09 11:37] LABS: D-Dimer 1.31 mg/L FEU (<0.60)
--- NOTE | 2019-07-09 12:34 | CT ---
EXAMINATION TYPE: CT angio chest DATE OF EXAM: 07/09/2019 COMPARISON: 11/21/2009 HISTORY: SOB with history of cardiac stent CT DLP: 373.2 mGycm. Automated Exposure Control for Dose Reduction was Utilized. CONTRAST: CTA scan of the thorax is performed with IV Contrast, patient injected with 100 mL of Isovue 370, pul monary embolism protocol. MIP Images are created on CT scanner and reviewed. FINDINGS: There is severe patient motion limiting the examination. LUNGS: Limited evaluation secondary to extensive patient motion. The no gross evidence of focal conso lidation or pulmonary mass. No pneumothorax or effusion seen. MEDIASTINUM: There is satisfactory enhancement of the pulmonary artery and its branches, however ther e is patient motion limiting the reconstructed images and rendering the subsegmental pulmonary arteri es nondiagnostic. There are no greater than 1 cm hilar or mediastinal lymph nodes. No pericardial effusion seen. Cardiomegaly is evident. Reflux of contrast into the hepatic veins are seen. OTHER: Thyroid gland is enlarged with substernal extent. Upper abdomen is extremely limited due to pa tient motion. Minimal bilateral probable retroareolar gynecomastia. Mild to moderate degenerative heather nges of the spine. IMPRESSION: 1. No evidence of central pulmonary embolus or segmental pulmonary embolus. Subsegmental pulmonary ar teries are nondiagnostic due to extensive patient motion. 2. Severe coronary artery calcifications, marker of coronary artery disease. Reflux of contrast in th e hepatic veins is also seen at can be seen in right heart failure. 3. Thyromegaly with substernal extent of the thyroid gland.
[2019-07-09] MEDS ORDERED: MAGNESIUM SULFATE-D5W PMX 1 GM in DEXTROSE/WATER 1 100ML.BAG IVPB ONE (13:08)
[2019-07-09] MEDS ORDERED: DOCUSATE 100 MG CAP PO PRN (13:26)
[2019-07-09] MEDS ORDERED: SILDENAFIL CITRATE 50 MG PO PRN (13:26)
[2019-07-09] MEDS ORDERED: LEVOFLOXACIN 500 MG TAB PO SCH (15:00)
[2019-07-09] MEDS: IPRATROPIUM-ALBUTEROL 3 ML NEB INHALATION SCH ×2 (17:15→20:03)
[2019-07-09] MEDS ORDERED: methylPREDNISolone SOD SUCCI 125 MG/2 ML VIAL IV SCH (18:00)
[2019-07-09] MEDS ORDERED: traZODone HCL 50 MG TAB PO SCH (21:00)
[2019-07-09] MEDS ORDERED: PRAVASTATIN SODIUM 20 MG TAB PO SCH (21:00)
[2019-07-09] MEDS: BUDESONIDE 1 MG/2 ML NEBU INHALATION SCH (21:56)
--- NOTE | 2019-07-09 21:56 | P.HPIM ---
History of Present Illness H&P Date: 07/09/19 Chief Complaint: Short of breath History of presenting complaint: This is a pleasant 59-year-old patient of Dr. Moriah Trejo. Chronic stable medical conditions include coronary artery disease, CHF, diabetes, hyperlipidemia, hypertension, osteoarthritis,(s) sleep apnea, hypothyroid. Patient was at [facility] on June 30 with influenza. Patient at home has 2 L of nasal [place] when necessary. Previously on the ventilator has ulcers sleep apnea uses CPAP cardio myopathy peripheral neuropathy hypothyroid decreased hearing in the left ear. Also coronary artery disease with stent. Patient is continued to smoke. Patient now presents with 2 weeks of increasing shortness of breath. Her yellow cough. No fever and chills decreased appetite had edema up to a few days ago that decreased. Review of systems: GEN.: Tired EYES: None HEENT: Decreased hearing in the left ear NECK: None RESPIRATORY: As above CARDIOVASCULAR: No chest pain GASTROINTESTINAL: None GENITOURINARY: None MUSCULOSKELETAL: Some joint pains LYMPHATICS: None HEMATOLOGICAL: None PSYCHIATRY: Some anxiety NEUROLOGICAL: None Past medical history to include: Coronary artery disease with stent, CHF, COPD, diabetes, DVT, hard of hearing in the left ear, hypertension, hyperlipidemia, osteoarthritis,(s) sleep apnea with CPAP, hypothyroid, home oxygen 2 L sometimes, peripheral neuropathy, herniated disc with low back pain better after surgery Social history: . Does use a walker to get about. Home oxygen 2 L. Smokes about 2 packs a day for over 40 years. Alcohol rarely. Physical examination: VITAL SIGNS: Afebrile, 104, 24, 176/94, 61% on 2 L GENERAL: BMI 40.8, sitting up the edge of the bed, short of breath]. EYES: Pupils equal. Conjunctiva normal. HEENT: External appearance of nose and ears normal, oral cavity grossly normal. NECK: JVD unable to assess; masses not palpable. HEART: First and second heart sounds are normal; mild edema. LUNGS: Respiratory rate increased, unable to speak in full sentences, accessory muscles a working, poor air entry with prolonged expiration;. ABDOMEN: Soft, distended, nontender, liver spleen not palpable, no masses palpable. PSYCH: [Alert and oriented x3; mood and affect anxious l. NEUROLOGICAL: Cranial nerves grossly intact; no facial asymmetry, power and sensation grossly intact. LYMPHATICS: No lymph nodes palpable in the axilla and neck INVESTIGATIONS, reviewed in the clinical context: White count 7.7 hemoglobin 14.7 platelets 311 potassium 4.5 creatinine 0.52 Troponin I less than 0.012 proBNP 316 EKG tracing personally reviewed by me-normal sinus rhythm Chest x-ray film personally reviewed by me-possible pneumonitis Chest CTA-no PE severe coronary artery calcifications Assessment: -Acute severe COPD exacerbation in a current smoker -Acute on chronic hypoxic respiratory failure, POA -Coronary artery disease with stent -Chronic congestive heart failure EF not known -Diabetes mellitus type 2 on oral hypoglycemic -Hypothyroid -Peripheral neuropathy from diabetes -Chronic nicotine dependence patient's cigarette smoker Plan: Patient is started on nebulized broncho-titers every 4 hours, inhaled and IV steroids. Long-acting beta agonist. Home medications resumed. Oxygen is being supplemented. Accu-Cheks will be followed. Lovenox for DVT prophylaxis. Pulmonary was consulted. Patient uses CPAP. Smoke cessation counseling: This was done with the patient. Nicotine patch is being given. More than 3 minutes was spent for this Past Medical History Past Medical History: Coronary Artery Disease (CAD), Heart Failure, COPD, Diabetes Mellitus, Deep Vein Thrombosis (DVT), Hearing Disorder / Deafness, Hyperlipidemia, Hypertension, Osteoarthritis (OA), Pneumonia, Respiratory Disorder, Sleep Apnea/CPAP/BIPAP, Thyroid Disorder Additional Past Medical History / Comment(s): Pt admitted to [facility] 06/30/19 with influenza. Other hx: Chronic respiratory failure/home oxygen usually 2L/NC prn but lately using more, past ventilator dependent respiratory failure, bronchospasms, JANICE with Cpap use, cardiomyopathy, NIDDM type II, neuropathy bilateral feet, past back pain/herniated discs but better after surgery, past bacterial sepsis, hypothyroid, sinus problems, [place] L ear. History of Any Multi-Drug Resistant Organisms: None Reported Date of last positivie culture/infection: None MDRO Source:: None Past Surgical History: Adenoidectomy, Back Surgery, Heart Catheterization With Stent, Hernia Repair, Joint Replacement, Orthopedic Surgery, Tonsillectomy Additional Past Surgical History / Comment(s): Bilateral total knee arthroplasties, R knee arthrotomy with irrigation/antibiotic beads placed/repair R quad tendon repair and medial retinaovular tear repair, R knee arthroscopy, lumbar fusion, R index finger benign tumor removed, PICC, hydrocele repair, colonoscopy. Past Anesthesia/Blood Transfusion Reactions: No Reported Reaction Date of Last Stent Placement:: 2007 Past Psychological History: No Psychological Hx Reported Additional Psychological History / Comment(s): Pt resides with his spouse and their grandson. He uses a walker to ambulate. He has not been driving lately d/t health reasons. His spouse drives. He has had VNA recently but they are done. He has home oxygen/nebulizer and glucometer. Smoking Status: Current every day smoker Past Alcohol Use History: Rare Additional Past Alcohol Use History / Comment(s): 2ppd since 1978 but less recently. Past Drug Use History: None Reported - Past Family History Mother Family Medical History: Coronary Artery Disease (CAD), CVA/TIA Father Family Medical History: Coronary Artery Disease (CAD), Diabetes Mellitus Medications and Allergies Home Medications Medication Instructions Recorded Confirmed Type Ipratropium-Albuterol Nebulize 3 ml INHALATION RT-Q4H PRN 01/03/18 07/09/19 History [Duoneb 0.5 mg-3 mg/3 ml Soln] Ipratropium/Albuterol Sulfate 1 - 2 puff INHALATION RT-QID PRN 01/03/18 07/09/19 History [Combivent Respimat Inhaler] Levothyroxine Sodium [Synthroid] 88 mcg PO DAILY 01/03/18 07/09/19 History Pravastatin Sodium [Pravachol] 20 mg PO HS 01/03/18 07/09/19 History metFORMIN HCL [Glucophage] 500 mg PO QAM 01/03/18 07/09/19 History Sildenafil Citrate [Viagra] 50 mg PO ONCE PRN 03/27/19 07/09/19 History Docusate [Colace] 100 mg PO DAILY PRN 05/22/19 07/09/19 History Albuterol Nebulized [Ventolin 2.5 mg INHALATION RT-Q4H PRN 07/09/19 07/09/19 History Nebulized] Aspirin [Adult Low Dose Aspirin EC] 81 mg PO DAILY 07/09/19 07/09/19 History Fluticasone/Umeclidin/Vilanter 1 puff INHALATION RT-DAILY 07/09/19 07/09/19 History [Trelegy Ellipta 100-62.5-25] Lisinopril [Zestril] 10 mg PO DAILY 07/09/19 07/09/19 History traZODone HCL 50 mg PO HS 07/09/19 07/09/19 History Allergies Allergy/AdvReac Type Severity Reaction Status Date / Time chlorthalidone AdvReac SODIUM Verified 07/09/19 11:23 LEVEL DANGEROUS LOW Physical Exam Vitals: Vital Signs Temp Pulse Pulse Resp BP BP Pulse Ox 07/09/19 20:14 92 18 07/09/19 20:04 90 18 07/09/19 19:34 98.4 F 87 18 164/86 94 L 07/09/19 17:27 92 07/09/19 17:18 92 L 07/09/19 17:17 89 07/09/19 17:15 98.4 F 94 18 160/91 92 L 07/09/19 14:10 76 16 142/76 95 07/09/19 13:13 90 07/09/19 13:04 87 16 157/98 93 L 07/09/19 13:03 87 07/09/19 12:52 90 07/09/19 11:24 90 07/09/19 11:14 86 07/09/19 10:37 96 16 176/94 95 07/09/19 10:35 104 H 24 176/94 61 L 07/09/19 10:34 20 Intake and Output 07/09/19 07/09/19 07/09/19 06:59 14:59 22:59 Intake Total 150 Output Total 150 Balance 0 Intake: Oral 150 Output: Urine 150 Other: Voiding Method Toilet Urinal Weight 114.759 kg Results CBC & Chem 7: 07/09/19 10:38 07/09/19 10:38 Labs: Abnormal Lab Results - Last 24 Hours (Table) 07/09/19 07/09/19 Range/Units 10:38 10:38 D-Dimer 1.31 H (<0.60) mg/L FEU Sodium 131 L (137-145) mmol/L Chloride 87 L (98-107) mmol/L Carbon Dioxide 39 H (22-30) mmol/L Creatinine 0.52 L (0.66-1.25) mg/dL Glucose 163 H (74-99) mg/dL Thrombosis Risk Factor Assmnt - Choose All That Apply Any of the Below Risk Factors Present?: Yes Each Factor Represents 1 point: Abnormal pulmonary function (COPD), Age 41-60 years, Obesity (BMI >25), Serious lung disease incl. pneumonia (< 1month) Other Risk Factors: No Other congenital or acquired thrombophilia - If yes, enter type in comment: No Thrombosis Risk Factor Assessment Total Risk Factor Score: 4 Thrombosis Risk Factor Assessment Level: Moderate Risk
[2019-07-09] MEDS: FORMOTEROL FUMARATE 20 MCG/2 ML NEBU INHALATION SCH (21:57)
[2019-07-09] MEDS: ENOXAPARIN 40 MG/0.4 ML SYRINGE SQ SCH (22:57)
[2019-07-09] MEDS: methylPREDNISolone SOD SUCCI 40 MG/ML 1 ML VIAL IV SCH (22:57)
[2019-07-10] MEDS: IPRATROPIUM-ALBUTEROL 3 ML NEB INHALATION SCH ×3 (00:10→08:53)
[2019-07-10] MEDS ORDERED: LEVOTHYROXINE 88 MCG TAB PO SCH (06:30)
[2019-07-10 07:17] LABS: Glucose,Whole Blood 172 mg/dL (75-99)
[2019-07-10] MEDS ORDERED: metFORMIN 500 MG TAB PO SCH (07:30)
[2019-07-10] MEDS: methylPREDNISolone SOD SUCCI 40 MG/ML 1 ML VIAL IV SCH (08:32)
[2019-07-10] MEDS: ENOXAPARIN 40 MG/0.4 ML SYRINGE SQ SCH (08:33)
[2019-07-10] MEDS: BUDESONIDE 1 MG/2 ML NEBU INHALATION SCH (08:53)
[2019-07-10] MEDS: FORMOTEROL FUMARATE 20 MCG/2 ML NEBU INHALATION SCH (08:53)
[2019-07-10] MEDS ORDERED: LISINOPRIL 10 MG TAB PO SCH (09:00)
[2019-07-10] MEDS ORDERED: ASPIRIN 81 MG PO SCH (09:00)
[2019-07-10] MEDS ORDERED: IPRATROPIUM-ALBUTEROL 3 ML NEB INHALATION PRN (10:50)
[2019-07-10 11:48] LABS: Glucose,Whole Blood 152 mg/dL (75-99)
--- NOTE | 2019-07-10 11:51 | CONS ---
CONSULTATION PULMONARY/CRITICAL CARE CONSULTATION: DATE OF SERVICE: 07/10/2019 This is a 59-year-old male who was brought into the emergency room for complaint of shortness of breath. The patient has a history of COPD. He also suffers from obstructive sleep apnea syndrome and is maintained on BiPAP, essential hypertension, chronic back pain with previous lumbar laminectomy, hyperlipidemia, previous history of tobacco use, and CAD. The patient states that his breathing has gotten worse over about a week or so prior to admission. It seems to be bothering him both at rest and on exertion. He denies any fever or chills. He denies any chest pain or chest discomfort. He does have a bit of chest tightness. His breathing is certainly much worse when he is exerting himself. He does describe a cough and chest congestion. Minimal phlegm production. Apparently he appeared cyanotic when he arrived in the emergency room. Currently, he is sitting at the bedside. He is wearing nasal O2. He would like to be able to be discharged home. He is feeling much better. He says, "Why should I sit here in a bed which could be occupied by somebody who is more ill than I." CURRENT MEDICATIONS: Include DuoNeb, Combivent inhaler, levothyroxine, pravastatin, metformin, Viagra, Colace, albuterol updrafts, aspirin, Trelegy, lisinopril, trazodone. ALLERGIES: CHLORTHALIDONE. PAST MEDICAL HISTORY: Includes CAD, heart failure, COPD, diabetes, DVT, sepsis, hyperlipidemia, hypertension, DJD, sleep apnea syndrome, and hypothyroidism. Other medical problems including remote history of deep venous thrombosis, pneumonia, and hearing loss in his left ear. PAST SURGICAL HISTORY: Includes, among other things, adenoidectomy, back surgery, heart catheterization with stent, hernia repair, tonsillectomy, hydrocele repair, arthroscopy right knee, bilateral hand surgery, and bilateral knee replacements. SOCIAL HISTORY: Positive for ongoing tobacco use on a daily basis. He does drink rarely. Denies illicit drug use. FAMILY HISTORY: Positive for mother with no major health issues. REVIEW OF SYSTEMS: CONSTITUTIONAL: Negative. NEUROLOGIC: Negative. HEENT: Negative. CARDIOVASCULAR: Negative. PULMONARY: Shortness of breath, chest tightness, wheezing, cough, chest congestion, and minimal phlegm production. GI: Negative. : Negative. RHEUMATOLOGIC: Negative. IMMUNOLOGIC: Negative. ENDOCRINOLOGIC: Negative. DERMATOLOGIC: Negative. PHYSICAL EXAMINATION: VITAL SIGNS: Current vital signs are reviewed. Temperature is 97.6, heart rate 92, respiratory rate 18, blood pressure 168/89, mean 115, 4-liter saturation is 94%. GENERAL APPEARANCE: Appears in no acute distress. Sitting at the bedside. Nasal O2 in place. No audible wheezing, use of accessory muscles, or conversational dyspnea. HEENT: Examination is grossly unremarkable. Mucous membranes are moist. No oral lesions. Nasal O2 noted. NECK: Supple. Full range of motion without adenopathy, thyromegaly, or neck vein distention. CARDIOVASCULAR: Examination reveals regular rhythm and rate. Heart sounds are distant. Heart rate is in the high 80s to low 90s. S1, S2 normal. LUNGS: Reveal a few scattered expiratory wheezes. There were severely diminished breath sounds throughout. There was prolongation on forced maneuver. No crackles. ABDOMEN: Obese. Bowel sounds are heard. EXTREMITIES: Intact. No significant cyanosis, clubbing, or edema. SKIN: Without rash. NEUROLOGIC: Examination is brief but nonfocal. LABS: Labs are reviewed. CBC is completely normal including white count, hemoglobin, hematocrit, and platelet count. PT and INR were normal, PTT 24.8. D-dimer 1.31. Sodium 131, potassium 4.5, chloride 87, CO2 39. Anion gap of 5. BUN and creatinine were 15 and 0.52. The rest of the labs look okay. A chest x-ray was done on July 08. This shows some possible mild pulmonary edema. There is also some minimal atelectasis at the bases. CT angiogram done yesterday was negative for pulmonary embolism. There was evidence of coronary artery calcification and thyromegaly. Current medications are reviewed. The patient is on aspirin, Pulmicort 1 mg, Colace, Lovenox, formoterol, DuoNeb, Levaquin, levothyroxine, lisinopril, metformin, Solu- Medrol, pravastatin, and trazodone. ASSESSMENT: 1. Chronic obstructive pulmonary disease exacerbation complicated by mild purulent tracheobronchitis, without justin pneumonia. 2. Recent admission for right knee arthroplasty. 3. Sleep apnea syndrome, maintained on CPAP. 4. Obesity. 5. Chronic obstructive pulmonary disease exacerbation completed by purulent tracheobronchitis without justin pneumonia. 6. Obesity with a BMI greater than 40. 7. Essential hypertension. 8. Chronic back pain. 9. Hyperlipidemia. 10.History of ongoing tobacco use. 11.History of coronary artery disease. 12.History of hypothyroidism. 13.Diabetes mellitus. 14.History of hypertension. 15.History of deep venous thrombosis. 16.Multiple other medical problems and comorbidities. PLAN: The patient seems to be doing relatively well. I will review his medications and make sure they are all properly ordered. I will make sure he is on updraft, Pulmicort, formoterol, and Solu-Medrol. Additional recommendations and suggestions are forthcoming. Prognosis is guarded. It does not appear that Mr. Cifuentes needs any antibiotics at this time. If we do give him antibiotics, then something like Levaquin 500 mg daily orally would be appropriate. NEMO / LOREN: [id number] /
[2019-07-10] MEDS ORDERED: IPRATROPIUM-ALBUTEROL 3 ML NEB INHALATION SCH (12:00)
[2019-07-10 14:39] VITALS: BMI 42.7
[2019-07-10 15:01] VITALS: BP 163/84; PULSE 95; RESP 20; TEMP 97.9
[2019-07-10] MEDS ORDERED: BUDESONIDE 1 MG/2 ML NEBU INHALATION SCH (20:00)
[2019-07-10] MEDS ORDERED: FORMOTEROL FUMARATE 20 MCG/2 ML NEBU INHALATION SCH (20:00)
--- NOTE | 2019-07-10 22:20 | P.DS ---
Providers Date of admission: 07/09/19 13:22 Expected date of discharge: 07/10/19 Attending physician: Ismael March Consults: 07/09/19 13:22 Consult Physician Routine Consulting Provider: Keiko Bello Consult Reason/Comments: COPD, pneumonia Do you want consulting provider notified?: Yes Primary care physician: Shawna Trejo [place] [facility] Course: Chief Complaint: Short of breath History of presenting complaint: This is a pleasant 59-year-old patient of Dr. Amber Trejo. Chronic stable medical conditions include coronary artery disease, CHF, diabetes, hyperlipidemia, hypertension, osteoarthritis,(s) sleep apnea, hypothyroid. Patient was at [facility] on June 30 with influenza. Patient at home has 2 L of nasal [place] when necessary. Previously on the ventilator has ulcers sleep apnea uses CPAP cardio myopathy peripheral neuropathy hypothyroid decreased hearing in the left ear. Also coronary artery disease with stent. Patient is continued to smoke. Patient now presents with 2 weeks of increasing shortness of breath. Her yellow cough. No fever and chills decreased appetite had edema up to a few days ago that decreased. Admitted with severe COPD exacerbation and acute hypoxic respiratory failure. Treated with bronchodilators steroids. He responded really well. Today-feeling much improved. P improved. Less wheezing. Tolerating a diet. Seen by pulmonary. Okay to be discharged. Consultation: Dr. Pereyra from pulmonary Physical examination: VITAL SIGNS: 97.9, 95, 20, 163/84, 90% on room air GENERAL: Sitting at the edge of bed, breathing better. EYES: Pupils equal. Conjunctiva normal. HEENT: External appearance of nose and ears normal, oral cavity grossly normal. NECK: JVD unable to assess; masses not palpable. HEART: First and second heart sounds are normal; mild edema. LUNGS: Respiratory rate increased, decreased breath sounds;. ABDOMEN: Soft, distended, nontender, liver spleen not palpable, no masses palpable. PSYCH: [Alert and oriented x3; mood and affect anxious l. INVESTIGATIONS, reviewed in the clinical context: White count 7.7 hemoglobin 14.7 platelets 311 potassium 4.5 creatinine 0.52 Troponin I less than 0.012 proBNP 316 EKG tracing personally reviewed by me-normal sinus rhythm Chest x-ray film personally reviewed by me-possible pneumonitis Chest CTA-no PE severe coronary artery calcifications Assessment: -Acute severe COPD exacerbation in a current smoker, improved, POA -Acute on chronic hypoxic respiratory failure, POA -Coronary artery disease with stent -Chronic congestive heart failure EF not known -Diabetes mellitus type 2 on oral hypoglycemic -Hypothyroid -Peripheral neuropathy from diabetes -Chronic nicotine dependence patient's cigarette smoker Disposition: Home Patient Condition at Discharge: Stable Plan - Discharge Summary Discharge Rx Participant: No New Discharge Prescriptions: New Cefuroxime Axetil [Ceftin] 500 mg PO BID 5 Days #10 tab predniSONE 10 mg PO DAILY #30 tab Continue metFORMIN HCL [Glucophage] 500 mg PO QAM Pravastatin Sodium [Pravachol] 20 mg PO HS Levothyroxine Sodium [Synthroid] 88 mcg PO DAILY Ipratropium/Albuterol Sulfate [Combivent Respimat Inhaler] 1 - 2 puff INHALATION RT-QID PRN PRN Reason: Dyspnea Sildenafil Citrate [Viagra] 50 mg PO ONCE PRN PRN Reason: ERECTILE DYSFUNCTION Docusate [Colace] 100 mg PO DAILY PRN PRN Reason: Constipation Albuterol Nebulized [Ventolin Nebulized] 2.5 mg INHALATION RT-Q4H PRN PRN Reason: Shortness Of Breath Aspirin [Adult Low Dose Aspirin EC] 81 mg PO DAILY Fluticasone/Umeclidin/Vilanter [Trelegy Ellipta 100-62.5-25] 1 puff INHALATION RT-DAILY Lisinopril [Zestril] 10 mg PO DAILY traZODone HCL 50 mg PO HS Changed Ipratropium-Albuterol Nebulize [Duoneb 0.5 mg-3 mg/3 ml Soln] 3 ml INHALATION QID #120 neb Discharge Medication List Ipratropium/Albuterol Sulfate [Combivent Respimat Inhaler] 1 - 2 puff INHALATION RT-QID PRN 01/03/18 [History] Levothyroxine Sodium [Synthroid] 88 mcg PO DAILY 01/03/18 [History] Pravastatin Sodium [Pravachol] 20 mg PO HS 01/03/18 [History] metFORMIN HCL [Glucophage] 500 mg PO QAM 01/03/18 [History] Sildenafil Citrate [Viagra] 50 mg PO ONCE PRN 03/27/19 [History] Docusate [Colace] 100 mg PO DAILY PRN 05/22/19 [History] Albuterol Nebulized [Ventolin Nebulized] 2.5 mg INHALATION RT-Q4H PRN 07/09/19 [History] Aspirin [Adult Low Dose Aspirin EC] 81 mg PO DAILY 07/09/19 [History] Fluticasone/Umeclidin/Vilanter [Trelegy Ellipta 100-62.5-25] 1 puff INHALATION RT-DAILY 07/09/19 [History] Lisinopril [Zestril] 10 mg PO DAILY 07/09/19 [History] traZODone HCL 50 mg PO HS 07/09/19 [History] Cefuroxime Axetil [Ceftin] 500 mg PO BID 5 Days #10 tab 07/10/19 [Rx] Ipratropium-Albuterol Nebulize [Duoneb 0.5 mg-3 mg/3 ml Soln] 3 ml INHALATION QID #120 neb 07/10/19 [Rx] predniSONE 10 mg PO DAILY #30 tab 07/10/19 [Rx] Follow up Appointment(s)/Referral(s): Shawna Trejo MD [Primary Care Provider] - 07/18/19 10:30 am (With [facility] ) Jose Gauthier MD [STAFF PHYSICIAN] - 07/23/19 11:00 am Patient Instructions/Handouts: COPD (Chronic Obstructive Pulmonary Disease) (DC) Discharge Disposition: HOME SELF-CARE
== END 2019-07-10 15:44 | disposition home or self-care (01) | DRG 190 ==
LOC: EC 10:24 → 4SSUR 13:22
PROVIDERS: ADMIT Hospitalist; ATTEND Hospitalist
DX: J44.1 Chronic obstructive pulmonary disease with (acute) exacerbation (principal); J96.21 Acute and chronic respiratory failure with hypoxia; I42.9 Cardiomyopathy, unspecified; Z68.41 Body mass index [BMI] 40.0-44.9, adult; E11.42 Type 2 diabetes mellitus with diabetic polyneuropathy; I11.0 Hypertensive heart disease with heart failure; I50.9 Heart failure, unspecified; E03.9 Hypothyroidism, unspecified; E66.9 Obesity, unspecified; E78.5 Hyperlipidemia, unspecified; F17.210 Nicotine dependence, cigarettes, uncomplicated; G47.33 Obstructive sleep apnea (adult) (pediatric); G89.29 Other chronic pain; H91.92 Unspecified hearing loss, left ear; I25.10 Atherosclerotic heart disease of native coronary artery without angina pectoris; M19.90 Unspecified osteoarthritis, unspecified site; M54.9 Dorsalgia, unspecified; Z79.82 Long term (current) use of aspirin; Z79.84 Long term (current) use of oral hypoglycemic drugs; Z79.890 Hormone replacement therapy; Z79.899 Other long term (current) drug therapy; Z96.653 Presence of artificial knee joint, bilateral; Z95.5 Presence of coronary angioplasty implant and graft; Z86.718 Personal history of other venous thrombosis and embolism; Z98.1 Arthrodesis status; Z88.8 Allergy status to other drugs, medicaments and biological substances; Z87.01 Personal history of pneumonia (recurrent); Z82.49 Family history of ischemic heart disease and other diseases of the circulatory system; Z83.3 Family history of diabetes mellitus; Z82.3 Family history of stroke
CPT/HCPCS: 36415; 71046; 71275; 80053; 82550; 83605; 83735; 83880; 84484; 85025; 85379; 85610; 85730; 93005; 94640; 96361; 96365; 96375; 99291